=== PATIENT | female | born 1935 | race African-American/Black ===

== ENCOUNTER 2017-07-31 12:20 | Observation (INO) | payer MEDICARE, OTHER ==
[2017-07-31 14:37] LABS: Bilirubin Negative (Negative); Blood, Urine Negative (Negative); Glucose, Urine (Dipstick) Negative (Negative); Ketone, Urine Negative (Negative); Nitrite Negative (Negative); Protein, Urine (Dipstick) Negative (Neg-Trace); Urobilinogen 0.2 mg/dL (0.2-1.0)
[2017-07-31 14:39] LABS: #Eosinphils 0.1 thou/uL (0.0-0.7); #Lymphocytes 1.4 thou/uL (1.20-3.40); #Monocytes 0.7 thou/uL (0.11-0.59); #Neutrophils 4.8 thou/uL (1.40-6.50); %Basophils 0.6 % (0.0-1.0); %Eosinophils 1.5 % (0.0-10.0); %Lymphocytes 20.3 % (21.0-51.0); %Monocytes 9.6 % (0.0-10.0); Hematocrit 44.5 % (36.0-47.0); Mean Platelet Volume 7.2 fL (7.4-10.4); Red Blood Cell (RBC) Count 4.85 mill/uL (4.20-5.40); White Blood Cell (WBC) Count 7.1 thou/uL (4.8-10.8)
[2017-07-31 14:56] LABS: Lactic Acid - Sepsis 0.8 mmol/L (0.5-2.2)
[2017-07-31 15:02] LABS: ALT (SGPT) 14 U/L (8-55); AST (SGOT) 22 U/L (5-34); Alkaline Phosphatase 78 U/L (40-150); Anion Gap 10 mmol/L (10-20); BUN (Urea Nitrogen) 23 mg/dL (9.8-20.1); Bilirubin, Total 0.5 mg/dL (0.2-1.2); CK (CPK) 138 U/L (29-168); Calc. Creatinine Clearance 0 mL/min (70-130); Calcium 10.6 mg/dL (7.8-10.44); Carbon Dioxide 29 mmol/L (23-31); Chloride 104 mmol/L (98-107); Estimated GFR-MDRD 58; Lipase 7 U/L (8-78); Magnesium 2.1 mg/dL (1.6-2.6); Protein, Total 8.2 g/dL (6.0-8.3)
[2017-07-31 15:04] LABS: Troponin I Less than 0.010 ng/mL (< 0.028)
--- NOTE | 2017-07-31 17:11 | HP ---
DATE OF ADMISSION: 07/31/2017 CHIEF COMPLAINT: Weakness in the lower extremities below the knees, inability to stand up and walk a nd ambulate. HISTORY OF PRESENT ILLNESS: The patient is an 82-year-old -[place] female, pleasant lady who is presenting to the [facility] Emergency Room in [place] with 1 day of lower extremity weakn ess. She said that this has never happened before, usually she is able to ambulate, although she has history of osteoarthritis and she had both knees replaced. She is still able to ambulate pretty goo d. She denies any fever or chills. She denies any pain at this point. Her sensory system is functi oning well. There was really nothing recently which would cause her to feel that way. PAST MEDICAL HISTORY: Positive for: 1. Hyperlipidemia. 2. Hypertension. 3. Overactive bladder. 4. Depression. 5. Osteoarthritis. PAST SURGICAL HISTORY: Total knee replacement, both knees. FAMILY HISTORY: Both mother and father at old age in their 80s and 90s and she does not know th e cause of their . SOCIAL HISTORY: She denies any alcohol intake, cigarette smoking, or illicit drug. ALLERGIES: MORPHINE. HOME MEDICATIONS: Ibuprofen 400 mg daily, Ditropan 5 mg twice a day, statin; she does not know the n roly of it, she thinks it is pravastatin 40 mg at bedtime, amlodipine, unknown dose and unknown freque ncy and HCTZ 25 mg, unknown frequency. REVIEW OF SYSTEMS: 14 systems were reviewed and the only positive for the above-mentioned HPI findin gs plus she has some peripheral edema in the lower extremities which kind of comes and goes. PHYSICAL EXAMINATION: GENERAL: She is not in any distress during my visit. VITAL SIGNS: Her blood pressure is 127/89, pulse is 78, respiratory rate is 16. HEENT: Her head is atraumatic, normocephalic. Eyes are PERRLA. Conjunctivae pinkish. Oral mucosa is moist. NECK: Supple, no lymphadenopathy. Thyroid is not palpable. LUNGS: Clear. HEART: S1, S2 normal. No S3, no S4. ABDOMEN: There is a systolic murmur at the left costal margin with the sternum. LUNGS: Clear. ABDOMEN: Soft, obese, nontender. EXTREMITIES: 2+ peripheral edema. NEUROLOGIC: She is alert and oriented x4. There is no any sensory deficits. There is probably mild weakness in her legs below the knees. Deep tendon reflexes on knees very diminished, probably this is related to the previous TKRs bilaterally. Babinski sign is negative. NEUROLOGICAL: Not showing any focal deficits. SKIN: No rash or erythema. LABORATORY AND X-RAY FINDINGS: Showed white count of 7.1, hemoglobin 14.5, hematocrit 44.5, and plat elet count is 222. Electrolytes within normal limits. BUN of 23, creatinine 1.09, calcium 10.6, nish bulin 4.0, lipase 7. The rest of chemistry within normal limits. Urinalysis within normal limits. EKG showed normal sinus rhythm with ventricular rate of 82, with some findings consistent with left a nterior fascicular block. ASSESSMENT AND PLAN: 1. Acute onset of lower extremity weakness which is somewhat pronounced below the knee area. I thin k this is just caused by deconditioning and some dehydration. Her BUN is elevated. Plan to give her some IV fluids and get physical therapy to evaluate her and treat. 2. Dehydration. The patient is on HCTZ which is affecting her volume status most likely. 3. Hyperlipidemia. 4. History of hypertension. 5. Anxiety. 6. Overactive bladder and urinary incontinence. PLAN: Admission for observation. Condition is fair. Activity: Bed rest and bathroom privileges wi th assistance and up to the chair, possible with some assistance. IV normal saline at 100 mL per jimenez r. PT to evaluate and treat. Continue her home meds. PUD prophylaxis and DVT prophylaxis with SCDs and heparin. Surrogate decision maker is her sister, Maritza and she is FULL CODE.
[2017-07-31 17:34] VITALS: BMI 31.6
[2017-07-31] MEDS: Sodium Chloride 0.9% 1,000 ML IV SCH (18:12)
[2017-08-01] MEDS: Sodium Chloride 0.9% 1,000 ML IV SCH ×2 (04:44→14:10)
[2017-08-01] MEDS: Enoxaparin Sodium 40 MG/0.4 ML SYRINGE SC SCH (07:48)
--- NOTE | 2017-08-01 09:40 | PRG ---
DATE OF SERVICE: 08/01/2017 SUBJECTIVE: The patient is seen and examined at the bedside. She is doing better. This morning, sh e did some physical therapy. This morning, she was able to walk several steps, so her general weakne ss in her lower extremities is improving gradually. OBJECTIVE: VITAL SIGNS: Blood pressure is 133/83, pulse is 56, temperature is 97.4, respiratory rate is 16, and O2 saturation is 98% on room air. HEENT: Atraumatic, normocephalic. Eyes PERRLA. Conjunctivae pinkish. Oral mucosa is moist. NECK: Supple, no lymphadenopathy. LUNGS: Clear. HEART: S1, S2 normal, no S3, no S4, no murmur. ABDOMEN: Soft, nontender, nondistended. EXTREMITIES: No clubbing, cyanosis or edema. NEUROLOGIC: She is alert and oriented x4. There is no any motor focal deficits. She has some weakn ess in the lower extremities, mostly in the distal part. LABORATORY DATA: None. IMPRESSION: 1. Acute onset of lower extremity weakness, which is most likely deconditioning and dehydration. Th e patient was able to get up and do some physical therapy this morning. She took several steps and s he seems to be improving. 2. Dehydration, most likely secondary to her diuretic. Her intravenous fluids will be stopped. She seems to be rehydrated. 3. Hyperlipidemia. 4. History of hypertension. 5. Anxiety. 6. Overactive bladder and urinary incontinence. PLAN: To continue her PT, stop her IV fluids, continue her home meds and continue DVT prophylaxis wi th SCDs and heparin and discharge home most likely tomorrow if she does well with physical therapy.
[2017-08-01] MEDS ORDERED: Acetaminophen 500 MG TAB PO PRN (14:30)
[2017-08-01] MEDS ORDERED: Acetaminophen 325 MG TAB PO PRN (14:30)
[2017-08-01] MEDS ORDERED: traMADol HCl 50 MG TAB PO PRN ×2 (14:30)
[2017-08-01] MEDS ORDERED: Mag-Al 1200 mg/1200 mg/30 ML UDCUP PO PRN (14:30)
[2017-08-01] MEDS ORDERED: Ondansetron ODT 4 MG TAB PO PRN (14:30)
[2017-08-01] MEDS: Oxybutynin 5 MG TAB PO SCH ×2 (15:22→21:09)
[2017-08-01] MEDS ORDERED: Atorvastatin Calcium 20 MG TAB PO SCH (21:00)
[2017-08-02 05:47] LABS: Anion Gap 10 mmol/L (10-20); BUN (Urea Nitrogen) 17 mg/dL (9.8-20.1); Calc. Creatinine Clearance 72 mL/min (70-130); Calcium 9.4 mg/dL (7.8-10.44); Carbon Dioxide 25 mmol/L (23-31); Chloride 106 mmol/L (98-107); Estimated GFR-MDRD 80
[2017-08-02 08:03] VITALS: BP 127/82; TEMP 98
[2017-08-02] MEDS: Cyclobenzaprine 10 MG TAB PO PRN ×2 (08:38→15:28)
[2017-08-02] MEDS: Oxybutynin 5 MG TAB PO SCH ×2 (08:39→15:28)
[2017-08-02] MEDS: Enoxaparin Sodium 40 MG/0.4 ML SYRINGE SC SCH (08:39)
--- NOTE | 2017-08-02 18:10 | DIS ---
DATE OF ADMISSION: 07/31/2017 DATE OF DISCHARGE: 08/02/2017 DISCHARGE DIAGNOSES: 1. Generalized weakness secondary to deconditioning. 2. Dehydration, mild, resolved. 3. Hyperlipidemia, stable. 4. Hypertension, stable. 5. Anxiety. 6. Urinary incontinence, stable. CONSULTATIONS: None. PERTINENT LABORATORY AND X-RAY FINDINGS: Creatinine ranged between 0.83-1.09 with estimated GFR rang ed between 58-80. Magnesium 2.1. LFTs within normal limits. Troponin I negative x1. CBC within no rmal limits. HOSPITAL COURSE: The patient was observed on the medical floor after initially presenting with gener alized weakness and difficulty with ambulation. The patient underwent general evaluation including p hysical therapy evaluation with recommendations for ongoing physical therapy as an outpatient. The p atient has overall general weakness due to advanced age, history of prior knee surgery, and deconditi oning. Metabolic workup was essentially unrevealing and patient remained clinically stable throughou t the hospital course. The patient is ready for discharge on 08/02/2017. DISCHARGE MEDICATIONS: 1. Tylenol 1000 mg p.o. q.6 hours p.r.n. pain. 2. Benazepril 20 mg 1 tablet p.o. daily. 3. Flexeril 5 mg p.o. t.i.d. p.r.n. 4. Oxybutynin 5 mg p.o. t.i.d. 5. Zocor 40 mg p.o. at bedtime. 6. Tramadol 50 mg 1-2 tablets p.o. q.6 hours p.r.n. pain. FOLLOWUP: The patient may follow up with her primary care provider, Dr. Luis A Clark within 7 days of discharge. CONDITION ON DISCHARGE: Stable. ACTIVITY: Ad vasu, rolling walker with ambulation. SPECIAL INSTRUCTIONS: Home health with physical therapy. DIET: Heart healthy. CODE STATUS: FULL. DISPOSITION: Home with home health services on 08/02/2017.
--- NOTE | 2017-08-07 13:36 | EKG ---
Test Reason : WEAKNESS Blood Pressure : / mmHG Vent. Rate : 082 BPM Atrial Rate : 082 BPM P-R Int : 192 ms QRS Dur : 088 ms QT Int : 382 ms P-R-T Axes : 021 -54 -05 degrees QTc Int : 446 ms Normal sinus rhythm Possible Left atrial enlargement Left anterior fascicular block Septal infarct , age undetermined Abnormal ECG Confirmed by MICHELLE MATTHEWS, KAHLIL Mota ([id number]), fashion editor TRESA MACHUCA ([id number]) on 08/07/2017 1:35:58 PM Referred By: MICHELLE Confirmed By:KAHLIL MARTINEZ MD
== END 2017-08-02 17:03 | disposition home health service (06) ==
LOC: ERS 12:20 → T4-B 17:15
PROVIDERS: ADMIT Internal Medicine; ATTEND Internal Medicine
DX: R53.81 Other malaise (principal); R53.1 Weakness; E86.0 Dehydration; E78.5 Hyperlipidemia, unspecified; I10 Essential (primary) hypertension; F41.9 Anxiety disorder, unspecified; R32 Unspecified urinary incontinence; M19.90 Unspecified osteoarthritis, unspecified site; F32.9 Major depressive disorder, single episode, unspecified; Z88.5 Allergy status to narcotic agent; Z79.899 Other long term (current) drug therapy; Z96.653 Presence of artificial knee joint, bilateral
CPT/HCPCS: 51701; 80048; 80053; 81003; 82550; 82553; 83605; 83690; 83735; 84484; 85025; 93005; 96360; 96361 ×3; 96372 ×2; 97110; 97116 ×2; 99285; G0378; G8978; G8979; 36415; A4353; J1650

== ENCOUNTER 2018-05-27 20:30 | Outpatient (CLI) | payer MEDICARE | END 2018-05-27 20:31 | disposition home or self-care (01) | LOC: SLEEPLAB 20:30 | PROVIDERS: ATTEND Family Medicine | DX: G47.33 Obstructive sleep apnea (adult) (pediatric) (principal); R53.83 Other fatigue; R06.83 Snoring; F32.9 Major depressive disorder, single episode, unspecified; F41.9 Anxiety disorder, unspecified; I10 Essential (primary) hypertension; E66.9 Obesity, unspecified; Z68.32 Body mass index [BMI] 32.0-32.9, adult | CPT/HCPCS: 95811 ==

== ENCOUNTER 2018-10-28 12:51 | Outpatient (CLI) | payer MEDICARE | END 2018-10-28 12:52 | disposition home or self-care (01) | LOC: ULT 12:51 | PROVIDERS: ATTEND Family Medicine | DX: R60.0 Localized edema (principal); I08.1 Rheumatic disorders of both mitral and tricuspid valves | CPT/HCPCS: 93306 ==

== ENCOUNTER 2019-05-30 20:36 | Inpatient (IN) | payer MEDICARE ==
[2019-05-30 21:37] LABS: #Eosinphils 0.2 thou/uL (0.0-0.7); #Lymphocytes 1.3 thou/uL (1.20-3.40); #Monocytes 0.6 thou/uL (0.11-0.59); #Neutrophils 5.5 thou/uL (1.40-6.50); %Basophils 0.5 % (0.0-1.0); %Eosinophils 2.2 % (0.0-10.0); %Lymphocytes 17.4 % (21.0-51.0); %Monocytes 8.1 % (0.0-10.0); %Neutrophils 71.7 % (42.0-75.0); Hemoglobin 13.7 g/dL (12.0-16.0); Mean Corpuscular HGB CONC 32.8 g/dL (32.0-36.0); Mean Corpuscular Hemoglobin 29.1 pg (27.0-31.0); Mean Corpuscular Volume 88.6 fL (78.0-98.0); Mean Platelet Volume 8.1 fL (7.4-10.4); Platelet Count 171 thou/uL (130-400); RBC Distribution Width 12.4 % (11.5-14.5); Red Blood Cell (RBC) Count 4.71 mill/uL (4.20-5.40); White Blood Cell (WBC) Count 7.6 thou/uL (4.8-10.8)
--- NOTE | 2019-05-30 22:01 | RAD ---
RADIOGRAPH CHEST 1 VIEW: DATE: 05/30/2019 HISTORY: 84-year-old female with generalized weakness. FINDINGS: There are no airspace densities, pulmonary edema, pneumothorax, or cardiomegaly. The lateral costophr enic angles are sharp. IMPRESSION: No acute cardiopulmonary findings.
[2019-05-30 22:02] LABS: ALT (SGPT) 12 U/L (8-55); AST (SGOT) 22 U/L (5-34); Albumin 3.9 g/dL (3.4-4.8); Alkaline Phosphatase 60 U/L (40-110); Anion Gap 9 mmol/L (10-20); BUN (Urea Nitrogen) 23 mg/dL (9.8-20.1); Bilirubin, Total 0.4 mg/dL (0.2-1.2); Calc. Creatinine Clearance 0 mL/min (70-130); Carbon Dioxide 28 mmol/L (23-31); Chloride 108 mmol/L (98-107); Estimated GFR-MDRD 49; Globulin 3.7 g/dL (2.4-3.5); Glucose 94 mg/dL (83-110); Magnesium 2.2 mg/dL (1.6-2.6); Protein, Total 7.6 g/dL (6.0-8.3); Sodium 141 mmol/L (136-145)
[2019-05-30 23:11] LABS: Bacteria/HPF 3+ HPF (None Seen); Bilirubin Negative (Negative); Blood, Urine Negative (Negative); Clarity Clear (Clear); Glucose, Urine (Dipstick) Normal (Negative); Leukocyte 250 Leu/uL (Negative); Nitrite Negative (Negative); Protein, Urine (Dipstick) Negative (Neg-Trace); RBC/HPF 0-3 HPF (0-3); Squamous Epithelial None Seen HPF (0-3); Urobilinogen Normal mg/dL (Less than 2); WBC/HPF 21-50 HPF (0-3)
[2019-05-30 23:12] LABS: Yeast-Budding None Seen HPF (None Seen)
[2019-05-30] MEDS ORDERED: cefTRIAXone\\ROCEPHIN 2 GM VIAL ONE (23:53)
[2019-05-31] MEDS ORDERED: Acetaminophen 325 MG TAB PO PRN (01:10)
[2019-05-31] MEDS ORDERED: Sodium Chloride 0.9% 1,000 ML IV SCH (01:30)
[2019-05-31 02:17] LABS: Troponin I Less than 0.010 ng/mL (< 0.028)
[2019-05-31 02:33] LABS: Anion Gap 13 mmol/L (10-20); BUN (Urea Nitrogen) 21 mg/dL (9.8-20.1); Calc. Creatinine Clearance 0 mL/min (70-130); Calcium 9.4 mg/dL (7.8-10.44); Carbon Dioxide 24 mmol/L (23-31); Chloride 109 mmol/L (98-107); Estimated GFR-MDRD 64; Glucose 91 mg/dL (83-110); Potassium 3.8 mmol/L (3.5-5.1); Sodium 142 mmol/L (136-145)
--- NOTE | 2019-05-31 02:39 | HP ---
CHIEF COMPLAINT: Possible fall. HISTORY OF PRESENT ILLNESS: This patient is an 84-year-old female, who was in a long term. The patient seems to be very well, cognitively intact. She says she simply slid out of her recliner chair today and she was feeling completely fine otherwise. She had no lightheadedness, shortness of breath, chest pain or palpitations. Nonetheless, this was reported to the long term staff and the patient was brought to the emergency department. She does report that she has been feeling some mild generalized weakness over the last 2 to 3 days and that she is getting up and around with her cane. She occasionally is having to grab onto things to hold herself upright. Otherwise, the patient states that for the last 3 to 4 weeks, she has essentially been sitting around, eating junk food and feeling depressed. This started on her 84 birthday, which was on May [birth year]. She says she has been thinking about family members who have and her generally poor functional status. The patient likes to travel and has been limited in her ability to do those things, so she is feeling a bit depressed. REVIEW OF SYSTEMS: She has had some lower extremity edema. Says she recently saw Dr. Clark and he put her on 10 mg of Lasix. She also is bothered by her overactive bladder. PAST MEDICAL HISTORY: Notable for hyperlipidemia, hypertension, overactive bladder, depression, and osteoarthritis. PAST SURGICAL HISTORY: Bilateral total knee replacements. FAMILY HISTORY: Both of her parents lived to be relatively old. She does not know their cause of , but they in their 80s and 90s. SOCIAL HISTORY: The patient is a nonsmoker, nondrinker, and nondrug user. She lives in the long term. She is a full code and her niece Pool Magdaleno would be her surrogate decision maker should that become necessary. ALLERGIES: MORPHINE. CURRENT MEDICATIONS: Unknown. There were no records of this sent from the nursing facility. We have been attempting to try to get those here in the emergency department thus far with no success. PHYSICAL EXAMINATION: GENERAL APPEARANCE: A very pleasant age-appropriate female, who enjoys conversation. She is awake and alert. Cognitively intact. HEENT: PERRL. She has some arcus senilis. No OP lesions. NECK: Supple and symmetric without lymphadenopathy, JVD, or bruits. HEART: Regular rate and rhythm; however, profoundly bradycardic. Monitor reveals a rate of around 40. LUNGS: Clear to auscultation bilaterally with good chest wall expansion and air exchange. ABDOMEN: Soft, nontender, and nondistended with positive bowel sounds. EXTREMITIES: 1+ pretibial pitting edema bilaterally. NEUROLOGIC: The patient moves all extremities spontaneously. She is cognitively intact, has normal speech. PSYCHIATRIC: Normal affect and behavior. LABORATORY DATA: White count 7.6, hemoglobin 13.7, platelets 171. Sodium 141, potassium 4.0, chloride 108, CO2 28, BUN 23, creatinine 1.26, GFR 49. LFTs normal. Magnesium 2.2. Troponin 0.11. BNP 31.4, albumin 3.9. Urinalysis shows 21 to 50 white cells, 3+ bacteria, positive leukocyte esterase and negative nitrites. Chest x-ray is negative. EKG shows sinus bradycardia with left bundle branch block. IMPRESSION AND PLAN: 1. Severe bradycardia. It sounds like this may be symptomatic given her last few days of increased weakness and the fact that she slid out of her chair today. It is unclear that she was otherwise symptomatic with that. It is also unclear at this point whether the patient is on any chronotropic medications. We are working to get her medication list from the long term. There is nothing in the computer that is helpful and her previous admission was in 2017. At that time, she was not on any chronotropes. We will continue to monitor overnight. Check serial troponins and check a TSH in the morning. We will consult Cardiology. I am hopeful that she may be on beta coleen, something that can be held and metabolize the way. Otherwise, she may be looking at pacemaker placement. 2. Hypertension. Again, we will resume her medications once they are actually known. 3. Overactive bladder. The patient was on Ditropan up to t.i.d. previously. We will resume medications once they are known. 4. Some depression. The patient did recently lose her last sibling and she understands that she has had some normal bereavement. She intends to become more active and be more helpful to others at her long term and try to go fishing again. 5. Possible urinary tract infection. She received Rocephin in the emergency department. We will continue with that. 6. Acute renal injury. The patient's GFR typically runs in the 70s to 80s. She is now down to 49. She has recently been put on some diuretics for the peripheral edema, may be that she has some intravascular depletion. She did receive some fluids at 500 mL in the emergency department. We will continue to gently hydrate and recheck her values in the morning. Job ID: [id number]
[2019-05-31 03:17] VITALS: BMI 36.9
[2019-05-31 07:25] LABS: Troponin I 0.011 ng/mL (< 0.028)
[2019-05-31] MEDS ORDERED: FLU VACC TS2019-20(65YR UP)/PF 180 MCG/0.5 ML SYRINGE IM ONE (09:00)
--- NOTE | 2019-05-31 13:04 | PDOC.HOSPP ---
- Subjective Encounter Date: 05/31/19 Encounter Time: 10:15 Subjective: no chest pain or palp she fell of her recliner last evening a bit depressed as she lost her sister 8-9 months back to cancer (pt is not and has no children) - Objective Vital Signs & Weight: Vital Signs (12 hours) Temp Pulse Resp BP Pulse Ox 05/31/19 12:00 97.7 F 49 L 20 149/64 H 94 L 05/31/19 08:00 98.5 F 46 L 18 146/65 H 95 05/31/19 02:04 97.9 F 44 L 19 119/67 95 Weight Weight 229 lb 1.6 oz I&O: 05/30/19 05/31/19 06/01/19 06:59 06:59 06:59 Intake Total 449 Output Total 235 Balance 214 Result Diagrams: 05/30/19 21:20 05/31/19 01:36 Hospitalist ROS - Medication Medications: Active Medications Generic Name Dose Route Start Last Admin Trade Name Freq PRN Reason Stop Dose Admin Sodium Chloride 1,000 mls @ 50 mls/hr 05/31/19 01:30 05/31/19 03:03 Normal Saline 0.9% IV 1,000 mls .Q20H SAMSON Administration - Exam General Appearance: awake alert Eye: PERRL, anicteric sclera ENT: normocephalic atraumatic, no oropharyngeal lesions, moist mucosa Neck: supple, no JVD Heart: RRR, no murmur Respiratory: no wheezes, no rales Gastrointestinal: soft, non-tender, non-distended, normal bowel sounds Extremities: no cyanosis, no edema Neurological: cranial nerve grossly intact, no focal deficits Psychiatric: normal affect, A&O x 3 Hosp A/P (1) Bradycardia Code(s): R00.1 - BRADYCARDIA, UNSPECIFIED Status: Acute (2) UTI (urinary tract infection) Status: Acute Qualifiers: Urinary tract infection type: acute cystitis Hematuria presence: without hematuria Qualified Code(s): N30.00 - Acute cystitis without hematuria (3) Dyslipidemia Code(s): E78.5 - HYPERLIPIDEMIA, UNSPECIFIED Status: Chronic (4) HTN (hypertension) Code(s): I10 - ESSENTIAL (PRIMARY) HYPERTENSION Status: Chronic Qualifiers: (5) Obesity (BMI 30-39.9) Code(s): E66.9 - OBESITY, UNSPECIFIED Status: Chronic - Plan her heart rate runs around 40's and had dipped down to 35 early this am per staff likely has underlying sss, await cardio opinion, she ate her lunch she needs to f/u with for left shoulder severe arthritis (frozen?) add lisinopril and home dose lasix for htn, pravachol on ceftriaxone for uti spiritual care consultation will start her on welbutrin for depression, tsh levels in am mobilize and amb in hallway as tolerated
[2019-05-31] MEDS: Oxybutynin 5 MG TAB PO SCH ×2 (14:23→21:51)
--- NOTE | 2019-05-31 21:11 | CON ---
DATE OF CONSULTATION: 05/31/2019 REASON FOR CONSULTATION: Bradycardia. HISTORY OF PRESENT ILLNESS: Ms. Severino is a delightful 84-year-old woman. She was brought to the hospital with weakness and fatigue. She was found to have a urinary tract infection (cystitis). She has also noted that she had severe bradycardia as will be outlined below. The patient has not had syncope. She has occasional lightheadedness when she gets up quickly, but no other dizziness or lightheadedness. She states she otherwise gets around pretty well. She said [place] The patient lives at a longterm, so history about going fishing I am not certain about, but that is what she tells me. She recently had her 84rd birthday. She said she has some problems with depression, but otherwise is doing well. She has chronic edema. MEDICATIONS AT HOME: 1. Ditropan. 2. Flexeril. 3. Tramadol. 4. Furosemide. 5. Pravastatin. 6. Alprazolam. ALLERGIES: TO MORPHINE. REVIEW OF SYSTEMS: CONSTITUTIONAL: Some tendency toward depression, but she said that is doing okay now. VISION: No changes. HEARING: No changes. PULMONARY: No cough or wheezing. GASTROINTESTINAL: No nausea, vomiting, or diarrhea. SKIN: No rashes. NEUROLOGIC: No unilateral weakness or numbness. PSYCHIATRIC: No unusual depression or anxiety. She said she does as mentioned suffer from depression off and on, but said that she is really doing well with that now. PHYSICAL EXAMINATION: GENERAL: This is a very delightful elderly female. She is overweight. VITAL SIGNS: Height 5 feet 6 inches tall, weight 229 pounds, BMI 37. Blood pressure 140/60, pulse 44 and regular. HEENT: Eyes; sclerae nonicteric. Mouth; mucous membranes moist. NECK: Neck veins are normal. LUNGS: Clear anteriorly and laterally. CARDIAC: I do not hear murmur, rub, or gallop. ABDOMEN: Obese, nontender. No hepatosplenomegaly. EXTREMITIES: Warm and dry. No clubbing or cyanosis. There is 1+ edema. PSYCHIATRIC: Mood and affect are normal. SKIN: Warm and dry. LABORATORY DATA: WBC 7.6. Urine did show 3+ bacteria with 21 to 50 white blood cells. Creatinine is 1. EKG showed sinus bradycardia, heart rate is low as the high 30s during the day 1 and the heart rate is approximately 35 beats per minute this morning at 10. The EKG, marked sinus bradycardia, left anterior fascicular block, ID interval 0.20. ASSESSMENT: 1. Bradycardia appears to be symptomatic with fatigue. 2. Cystitis being treated. PLAN: Recommend pacemaker insertion. Discussed bleeding, infection, air around the lung. We will await at least still tomorrow to make sure the urinary tract infection is cleared. I discussed this in great detail to the patient. The patient states that she is not ready to pursue that. Discussed that she could have progressive weakness versus if she has pauses, lightheadedness, or even falling. The patient understands, but states she just has to think about it more and is not ready for pacemaker at the present time. We discussed the procedure in detail. Dr. Alcantara will be the physician in planning if the patient decides to proceed. Job ID: [id number]
[2019-05-31] MEDS: Lisinopril 5 MG TAB PO SCH (21:51)
[2019-05-31] MEDS: Pravastatin Sodium 40 MG TAB PO SCH (21:51)
[2019-05-31] MEDS: buPROPion 75 MG TAB PO SCH (21:51)
[2019-05-31] MEDS ORDERED: cefTRIAXone\\ROCEPHIN 1 GM in Sodium Chloride 0.9% 100 ML IVPB SCH (23:59)
[2019-06-01] MEDS: Sulfameth/Trimethoprim DS 800-160mg TAB PO SCH ×2 (08:26→21:26)
[2019-06-01] MEDS: Lisinopril 5 MG TAB PO SCH ×2 (08:26→21:26)
[2019-06-01] MEDS: Furosemide 20 MG TAB PO SCH (08:26)
[2019-06-01] MEDS: Oxybutynin 5 MG TAB PO SCH ×3 (08:26→21:27)
[2019-06-01] MEDS: buPROPion 75 MG TAB PO SCH ×2 (08:38→21:26)
--- NOTE | 2019-06-01 09:36 | PRG ---
DATE OF SERVICE: 06/01/2019 SUBJECTIVE: Ms. Severino is feeling better today. OBJECTIVE: VITAL SIGNS: Her blood pressure is 165/79, pulse is 44 and regular. LUNGS: Clear. CARDIAC: Normal S1, normal S2. ABDOMEN: Soft and nontender. ASSESSMENT: Bradycardia associated with fatigue. Heart rate is in the 30s at times and otherwise low 40s. PLAN: The patient wished to proceed with pacemaker tomorrow. I have discussed this with her yesterday. We will proceed tomorrow. Job ID: [id number]
[2019-06-01] MEDS ORDERED: Lorazepam 1 MG TAB PO SCH (17:00)
--- NOTE | 2019-06-01 17:57 | PDOC.HOSPP ---
- Subjective Encounter Date: 06/01/19 Encounter Time: 11:20 Subjective: no chest pain or palp - Objective Vital Signs & Weight: Vital Signs (12 hours) Temp Pulse Resp BP Pulse Ox 06/01/19 15:29 97.9 F 64 17 147/71 H 94 L 06/01/19 11:19 98.2 F 72 17 160/74 H 97 06/01/19 07:27 98.3 F 45 L 17 165/79 H 92 L Weight Weight 225 lb 12.8 oz I&O: 05/31/19 06/01/19 06/02/19 06:59 06:59 06:59 Intake Total 449 1080 Output Total 235 1900 Balance 214 -820 Result Diagrams: 05/30/19 21:20 05/31/19 01:36 Hospitalist ROS - Medication Medications: Active Medications Generic Name Dose Route Start Last Admin Trade Name Freq PRN Reason Stop Dose Admin Acetaminophen 650 mg 05/31/19 01:10 05/31/19 16:48 Tylenol PO 650 mg Q4H PRN Administration Headache/Fever/Mild Pain (1-3) Bupropion HCl 75 mg 05/31/19 21:00 06/01/19 08:38 Wellbutrin PO 75 mg BID SAMSON Administration Furosemide 20 mg 06/01/19 09:00 06/01/19 08:26 Lasix PO 20 mg DAILY SAMSON Administration Lisinopril 5 mg 05/31/19 21:00 06/01/19 08:26 Zestril PO 5 mg BID SAMSON Administration Lorazepam 1 mg 06/01/19 17:00 06/01/19 17:11 Ativan PO 06/01/19 19:00 1 mg NOW SAMSON Administration Oxybutynin Chloride 5 mg 05/31/19 15:00 06/01/19 15:28 Ditropan PO 5 mg TID SAMSON Administration Pravastatin Sodium 40 mg 05/31/19 21:00 05/31/19 21:51 Pravachol PO 40 mg QPM SAMSON Administration Trimethoprim/Sulfamethoxazole 1 tab 06/01/19 09:00 06/01/19 08:26 Bactrim Ds PO 1 tab BID SAMSON Administration - Exam General Appearance: NAD, awake alert Eye: PERRL, anicteric sclera ENT: no oropharyngeal lesions, moist mucosa Neck: supple, no JVD Heart: no murmur Heart - other findings: bradycardia+ Respiratory: no wheezes, no rales Gastrointestinal: soft, non-tender, non-distended, normal bowel sounds Extremities: no cyanosis, no edema Neurological: cranial nerve grossly intact, no focal deficits Hosp A/P (1) Bradycardia Code(s): R00.1 - BRADYCARDIA, UNSPECIFIED Status: Acute (2) UTI (urinary tract infection) Status: Acute Qualifiers: Urinary tract infection type: acute cystitis Hematuria presence: without hematuria Qualified Code(s): N30.00 - Acute cystitis without hematuria (3) Dyslipidemia Code(s): E78.5 - HYPERLIPIDEMIA, UNSPECIFIED Status: Chronic (4) HTN (hypertension) Code(s): I10 - ESSENTIAL (PRIMARY) HYPERTENSION Status: Chronic Qualifiers: (5) Obesity (BMI 30-39.9) Code(s): E66.9 - OBESITY, UNSPECIFIED Status: Chronic - Plan likely has underlying sss, for pcm in am, patient agrees to proceed. she needs to f/u with for left shoulder severe arthritis (frozen?) continue lisinopril, home dose lasix for htn, pravachol on bactrim ds for uti spiritual care consultation on welbutrin for depression mobilize and amb in hallway as tolerated
[2019-06-01] MEDS: Pravastatin Sodium 40 MG TAB PO SCH (21:26)
[2019-06-02] MEDS: Lisinopril 5 MG TAB PO SCH ×2 (06:46→20:54)
[2019-06-02] MEDS ORDERED: Lidocaine 1% (PF) 30 ML VIAL ONE (07:10)
[2019-06-02] MEDS ORDERED: CEFAZOLIN 1 GM VIAL ONE (07:10)
[2019-06-02] MEDS ORDERED: Gentamicin 80 MG/2 ML VIAL ONE (07:11)
[2019-06-02 07:55] LABS: #Eosinphils 0.2 thou/uL (0.0-0.7); #Lymphocytes 1.5 thou/uL (1.20-3.40); #Monocytes 0.7 thou/uL (0.11-0.59); #Neutrophils 8.1 thou/uL (1.40-6.50); %Basophils 0.3 % (0.0-1.0); %Eosinophils 1.8 % (0.0-10.0); %Monocytes 6.5 % (0.0-10.0); %Neutrophils 77.3 % (42.0-75.0); Mean Corpuscular HGB CONC 32.2 g/dL (32.0-36.0); Mean Corpuscular Hemoglobin 28.2 pg (27.0-31.0); Mean Corpuscular Volume 87.8 fL (78.0-98.0); Mean Platelet Volume 8.1 fL (7.4-10.4); Platelet Count 184 thou/uL (130-400); RBC Distribution Width 12.7 % (11.5-14.5); White Blood Cell (WBC) Count 10.5 thou/uL (4.8-10.8)
[2019-06-02 08:11] LABS: PTT 31.5 SEC (22.9-36.1); Prothrombin Time 13.5 SEC (12.0-14.7)
[2019-06-02 08:17] LABS: Anion Gap 11 mmol/L (10-20); BUN (Urea Nitrogen) 15 mg/dL (9.8-20.1); Calc. Creatinine Clearance 64 mL/min (70-130); Calcium 9.7 mg/dL (7.8-10.44); Carbon Dioxide 26 mmol/L (23-31); Chloride 105 mmol/L (98-107); Estimated GFR-MDRD 59; Glucose 93 mg/dL (83-110); Potassium 3.5 mmol/L (3.5-5.1); Sodium 138 mmol/L (136-145)
[2019-06-02] MEDS ORDERED: Midazolam HCl 2 mg/2 ml Vial ONE (08:41)
[2019-06-02] MEDS: buPROPion 75 MG TAB PO SCH ×2 (10:57→20:55)
[2019-06-02] MEDS: Sulfameth/Trimethoprim DS 800-160mg TAB PO SCH ×2 (10:57→20:54)
[2019-06-02] MEDS: Furosemide 20 MG TAB PO SCH (10:57)
[2019-06-02] MEDS: traMADol HCl 50 MG TAB PO PRN (10:58)
[2019-06-02] MEDS: Oxybutynin 5 MG TAB PO SCH ×3 (10:58→20:54)
--- NOTE | 2019-06-02 12:40 | PDOC.HOSPP ---
- Subjective Encounter Date: 06/02/19 Encounter Time: 09:30 Subjective: awake, just had her pcm placed no sob - Objective Vital Signs & Weight: Vital Signs (12 hours) Temp Pulse Resp BP Pulse Ox 06/02/19 11:50 98 F 70 18 150/69 H 100 06/02/19 10:52 80 18 154/77 H 99 06/02/19 07:19 98 F 59 L 18 146/70 H 97 06/02/19 06:46 60 06/02/19 03:54 98.0 F 60 18 135/70 96 Weight Weight 225 lb 12.8 oz I&O: 06/01/19 06/02/19 06/03/19 06:59 06:59 06:59 Intake Total 1080 450 Output Total 1900 900 Balance -820 -450 Result Diagrams: 06/02/19 07:36 06/02/19 07:36 Hospitalist ROS - Medication Medications: Active Medications Generic Name Dose Route Start Last Admin Trade Name Freq PRN Reason Stop Dose Admin Acetaminophen 650 mg 05/31/19 01:10 05/31/19 16:48 Tylenol PO 650 mg Q4H PRN Administration Headache/Fever/Mild Pain (1-3) Bupropion HCl 75 mg 05/31/19 21:00 06/02/19 10:57 Wellbutrin PO 75 mg BID SAMSON Administration Furosemide 20 mg 06/01/19 09:00 06/02/19 10:57 Lasix PO 20 mg DAILY SAMSON Administration Lisinopril 5 mg 05/31/19 21:00 06/02/19 06:46 Zestril PO 5 mg BID SAMSON Administration Oxybutynin Chloride 5 mg 05/31/19 15:00 06/02/19 10:58 Ditropan PO 5 mg TID SAMSON Administration Pravastatin Sodium 40 mg 05/31/19 21:00 06/01/19 21:26 Pravachol PO 40 mg QPM SAMSON Administration Sodium Chloride 10 ml 06/01/19 21:00 06/02/19 10:58 Flush - Normal Saline IVF 10 ml Q12HR SAMSON Administration Tramadol HCl 50 mg 05/31/19 12:56 06/02/19 10:58 Ultram PO 50 mg Q6H PRN Administration Moderate Pain (4-6) Trimethoprim/Sulfamethoxazole 1 tab 06/01/19 09:00 06/02/19 10:57 Bactrim Ds PO 1 tab BID SAMSON Administration - Exam General Appearance: awake alert Eye: PERRL, anicteric sclera ENT: normocephalic atraumatic, no oropharyngeal lesions, moist mucosa Neck: supple, no JVD Heart: no murmur, no gallops Respiratory: no wheezes, no rales Gastrointestinal: soft, non-tender, non-distended, normal bowel sounds Extremities: no cyanosis, no edema Neurological: cranial nerve grossly intact, no focal deficits Hosp A/P (1) Bradycardia Code(s): R00.1 - BRADYCARDIA, UNSPECIFIED Status: Acute (2) UTI (urinary tract infection) Status: Acute Qualifiers: Urinary tract infection type: acute cystitis Hematuria presence: without hematuria Qualified Code(s): N30.00 - Acute cystitis without hematuria (3) Dyslipidemia Code(s): E78.5 - HYPERLIPIDEMIA, UNSPECIFIED Status: Chronic (4) HTN (hypertension) Code(s): I10 - ESSENTIAL (PRIMARY) HYPERTENSION Status: Chronic Qualifiers: (5) Obesity (BMI 30-39.9) Code(s): E66.9 - OBESITY, UNSPECIFIED Status: Chronic - Plan s/p pcm dual chamber for sss. she needs to f/u with for left shoulder severe arthritis (frozen?) continue lisinopril, home dose lasix for htn, pravachol on bactrim ds for uti spiritual care consultation on welbutrin for depression, needs slow titration as outpt mobilize and amb in hallway as tolerated ?skilled care if she qualifies
[2019-06-02] MEDS ORDERED: Ketorolac Tromethamine 30 MG/ML VIAL IVP SCH (15:30)
--- NOTE | 2019-06-02 15:47 | RAD ---
EXAM: CHEST ONE VIEW HISTORY: Post cardiac device placement. COMPARISON: 05/30/2019 FINDINGS: There has been interval placement of a dual-lead left subclavian cardiac pacemaking device. No pneumo thorax is seen. The cardiac silhouette is magnified by projection. The pulmonary vasculature is within normal limits. The lungs are clear. Osteoarthritis involves the left glenohumeral joint with p ostsurgical changes involving the right shoulder. Minimal degenerative changes are seen in the spine. No other interval change. IMPRESSION: Interval placement of a dual-lead left subclavian cardiac pacemaking device without evidence of a pne umothorax or pleural effusion.
--- NOTE | 2019-06-02 16:05 | CCL ---
DATE OF PROCEDURE: 06/01/19 INDICATION FOR PROCEDURE: This is an 83-year-old female with sick sinus syndrome with symptomatic bradycardia. She was advised to undergo dual chamber pacemaker insertion. This was performed today without difficulties or complic ations. She was taken to the [facility] where she was prepped and draped in the sterile fashion . Using a left subclavian approach, the pacemaker was easily inserted. Some difficulties were in tena gating the vein but we were able to engage and place the pacemaker leads. She was implanted with an A zure dual chamber pacemaker, [employer]. Two screw-in leads. One in the atrium and one in the ventricl e. Pacemaker was set with the upper rate of 120 and lower rate was set at 60. There were no difficult ies or complications otherwise encountered. She was given 1 mg of IV Versed for conscious sedation. Throughout the procedure she was monitored by an independent observer for heart rate, blood pressure and L2 saturation and remained stable. Total sedation time was 60 minutes.
[2019-06-02] MEDS: Acetaminophen/Codeine 30-300mg Tablet PO PRN (20:54)
[2019-06-02] MEDS: Pravastatin Sodium 40 MG TAB PO SCH (20:54)
[2019-06-03] MEDS: Sulfameth/Trimethoprim DS 800-160mg TAB PO SCH ×2 (09:07→21:35)
[2019-06-03] MEDS: Oxybutynin 5 MG TAB PO SCH ×3 (09:07→21:35)
[2019-06-03] MEDS: buPROPion 75 MG TAB PO SCH ×2 (09:07→21:35)
[2019-06-03] MEDS: Furosemide 20 MG TAB PO SCH (09:09)
[2019-06-03] MEDS: Lisinopril 5 MG TAB PO SCH ×2 (09:09→21:35)
[2019-06-03] MEDS: Acetaminophen/Codeine 30-300mg Tablet PO PRN (09:12)
[2019-06-03] MEDS: ALPRAZolam 0.25 MG TAB PO PRN (13:09)
[2019-06-03] MEDS: traMADol HCl 50 MG TAB PO PRN (13:15)
--- NOTE | 2019-06-03 13:42 | EKG ---
Test Reason : Blood Pressure : / mmHG Vent. Rate : 047 BPM Atrial Rate : 047 BPM P-R Int : 198 ms QRS Dur : 090 ms QT Int : 444 ms P-R-T Axes : 044 -51 -19 degrees QTc Int : 392 ms Marked sinus bradycardia with sinus arrhythmia Left anterior fascicular block Possible Anterolateral infarct , age undetermined Abnormal ECG Confirmed by OLENA ARDON ([id number]), video tape editor TRESA MACHUCA ([id number]) on 06/03/2019 1:41:24 PM Referred By: Confirmed By:OLENA ARDON
--- NOTE | 2019-06-03 14:40 | PDOC.HOSPP ---
- Subjective Subjective: Feels ok. No complaints. Wants to consider some rehab. - Objective Vital Signs & Weight: Vital Signs (12 hours) Temp Pulse Resp BP BP Pulse Ox 06/03/19 11:55 99.2 F 73 18 142/67 H 92 L 06/03/19 09:09 64 06/03/19 09:05 94 L 06/03/19 07:40 98.1 F 69 18 147/65 H 94 L 06/03/19 03:16 97.8 F 64 21 H 135/58 L 94 L Weight Weight 225 lb 12.8 oz I&O: 06/02/19 06/03/19 06/04/19 06:59 06:59 06:59 Intake Total 450 600 Output Total 900 Balance -450 600 Result Diagrams: 06/02/19 07:36 06/02/19 07:36 Hospitalist ROS - Medication Medications: Active Medications Generic Name Dose Route Start Last Admin Trade Name Freq PRN Reason Stop Dose Admin Acetaminophen 650 mg 05/31/19 01:10 05/31/19 16:48 Tylenol PO 650 mg Q4H PRN Administration Headache/Fever/Mild Pain (1-3) Acetaminophen/Codeine Phosphate 1 tab 06/02/19 15:26 06/03/19 09:12 Tylenol #3 PO 1 tab Q6H PRN Administration Pain Alprazolam 0.25 mg 06/03/19 12:56 06/03/19 13:09 Xanax PO 0.25 mg TIDPRN PRN Administration Anxiety Bupropion HCl 75 mg 05/31/19 21:00 06/03/19 09:07 Wellbutrin PO 75 mg BID SAMSON Administration Furosemide 20 mg 06/01/19 09:00 06/03/19 09:09 Lasix PO 20 mg DAILY SAMSON Administration Lisinopril 5 mg 05/31/19 21:00 06/03/19 09:09 Zestril PO 5 mg BID SAMSON Administration Oxybutynin Chloride 5 mg 05/31/19 15:00 06/03/19 09:07 Ditropan PO 5 mg TID SAMSON Administration Pravastatin Sodium 40 mg 05/31/19 21:00 06/02/19 20:54 Pravachol PO 40 mg QPM SAMSON Administration Sodium Chloride 10 ml 06/01/19 21:00 06/03/19 09:09 Flush - Normal Saline IVF 10 ml Q12HR SAMSON Administration Tramadol HCl 50 mg 05/31/19 12:56 06/03/19 13:15 Ultram PO 50 mg Q6H PRN Administration Moderate Pain (4-6) Trimethoprim/Sulfamethoxazole 1 tab 06/01/19 09:00 06/03/19 09:07 Bactrim Ds PO 1 tab BID SAMSON Administration - Exam General Appearance: NAD, awake alert ENT: normocephalic atraumatic, no oropharyngeal lesions, moist mucosa Heart: RRR, no murmur, no gallops, no rubs, normal peripheral pulses Respiratory: CTAB, no wheezes, no rales, no ronchi, normal chest expansion, no tachypnea, normal percussion Gastrointestinal: soft, non-tender, non-distended, normal bowel sounds, no palpable masses, no hepatomegaly, no splenomegaly, no bruit Extremities: no cyanosis, no clubbing, no edema Skin: normal turgor Musculoskeletal: normal tone Psychiatric: normal affect, normal behavior, A&O x 3 Hosp A/P (1) Bradycardia Code(s): R00.1 - BRADYCARDIA, UNSPECIFIED Status: Acute (2) UTI (urinary tract infection) Status: Acute Qualifiers: Urinary tract infection type: acute cystitis Hematuria presence: without hematuria Qualified Code(s): N30.00 - Acute cystitis without hematuria (3) HTN (hypertension) Code(s): I10 - ESSENTIAL (PRIMARY) HYPERTENSION Status: Chronic Qualifiers: (4) Obesity (BMI 30-39.9) Code(s): E66.9 - OBESITY, UNSPECIFIED Status: Chronic (5) Depression Code(s): F32.9 - MAJOR DEPRESSIVE DISORDER, SINGLE EPISODE, UNSPECIFIED Status : Acute - Plan Doing well overall. Continue PO Bactrim for E coli UTI. Continue Keflex for post-procedure prophylaxis. She lives at [facility] in independent living. CM consult for possible rehab. Medically stable for DC anytime.
[2019-06-03] MEDS: Pravastatin Sodium 40 MG TAB PO SCH (21:35)
[2019-06-04] MEDS: Acetaminophen/Codeine 30-300mg Tablet PO PRN ×3 (00:12→22:47)
[2019-06-04] MEDS: buPROPion 75 MG TAB PO SCH ×2 (08:58→21:27)
[2019-06-04] MEDS: Lisinopril 5 MG TAB PO SCH ×2 (08:59→21:27)
[2019-06-04] MEDS: Sulfameth/Trimethoprim DS 800-160mg TAB PO SCH ×2 (08:59→21:27)
[2019-06-04] MEDS: Furosemide 20 MG TAB PO SCH (08:59)
[2019-06-04] MEDS: Oxybutynin 5 MG TAB PO SCH ×3 (08:59→21:27)
--- NOTE | 2019-06-04 09:29 | PDOC.HOSPP ---
- Subjective Encounter Date: 06/04/19 Encounter Time: 09:28 Subjective: Reports that she is getting well cared for and very happy with everyone here. She does have some left shoulder pain at the upper humerus. - Objective Vital Signs & Weight: Vital Signs (12 hours) Temp Pulse Resp BP BP Pulse Ox 06/04/19 08:59 61 113/71 06/04/19 07:35 97.8 F 61 16 113/71 95 06/04/19 04:00 97.5 F L 60 15 108/65 94 L 06/04/19 00:00 98.2 F 74 18 145/76 H 96 06/03/19 21:35 76 139/77 Weight Weight 225 lb 12.8 oz I&O: 06/03/19 06/04/19 06/05/19 06:59 06:59 06:59 Intake Total 2640 Output Total 200 Balance 2440 Result Diagrams: 06/02/19 07:36 06/02/19 07:36 Hospitalist ROS - Medication Medications: Active Medications Generic Name Dose Route Start Last Admin Trade Name Freq PRN Reason Stop Dose Admin Acetaminophen 650 mg 05/31/19 01:10 05/31/19 16:48 Tylenol PO 650 mg Q4H PRN Administration Headache/Fever/Mild Pain (1-3) Acetaminophen/Codeine Phosphate 1 tab 06/02/19 15:26 06/04/19 00:12 Tylenol #3 PO 1 tab Q6H PRN Administration Pain Alprazolam 0.25 mg 06/03/19 12:56 06/03/19 13:09 Xanax PO 0.25 mg TIDPRN PRN Administration Anxiety Bupropion HCl 75 mg 05/31/19 21:00 06/04/19 08:58 Wellbutrin PO 75 mg BID SAMSON Administration Furosemide 20 mg 06/01/19 09:00 06/04/19 08:59 Lasix PO 20 mg DAILY SAMSON Administration Lisinopril 5 mg 05/31/19 21:00 06/04/19 08:59 Zestril PO 5 mg BID SAMSON Administration Oxybutynin Chloride 5 mg 05/31/19 15:00 06/04/19 08:59 Ditropan PO 5 mg TID SAMSON Administration Pravastatin Sodium 40 mg 05/31/19 21:00 06/03/19 21:35 Pravachol PO 40 mg QPM SAMSON Administration Sodium Chloride 10 ml 06/01/19 21:00 06/04/19 08:59 Flush - Normal Saline IVF 10 ml Q12HR SAMSON Administration Tramadol HCl 50 mg 05/31/19 12:56 06/03/19 13:15 Ultram PO 50 mg Q6H PRN Administration Moderate Pain (4-6) Trimethoprim/Sulfamethoxazole 1 tab 06/01/19 09:00 06/04/19 08:59 Bactrim Ds PO 1 tab BID SAMSON Administration - Exam General Appearance: NAD, awake alert Heart: RRR, no murmur, no gallops, no rubs, normal peripheral pulses Heart - other findings: PPM site looks good. Respiratory: CTAB, no wheezes, no rales, no ronchi, normal chest expansion, no tachypnea, normal percussion Gastrointestinal: soft, non-tender, non-distended, normal bowel sounds, no palpable masses, no hepatomegaly, no splenomegaly, no bruit Extremities: no cyanosis, no clubbing, no edema Skin: normal turgor Musculoskeletal - other findings: TTP in the left shoulder joint. Psychiatric: normal affect, normal behavior, A&O x 3 Hosp A/P (1) Bradycardia Code(s): R00.1 - BRADYCARDIA, UNSPECIFIED Status: Acute (2) UTI (urinary tract infection) Status: Acute Qualifiers: Urinary tract infection type: acute cystitis Hematuria presence: without hematuria Qualified Code(s): N30.00 - Acute cystitis without hematuria (3) HTN (hypertension) Code(s): I10 - ESSENTIAL (PRIMARY) HYPERTENSION Status: Chronic Qualifiers: (4) Obesity (BMI 30-39.9) Code(s): E66.9 - OBESITY, UNSPECIFIED Status: Chronic (5) Depression Code(s): F32.9 - MAJOR DEPRESSIVE DISORDER, SINGLE EPISODE, UNSPECIFIED Status : Acute (6) Osteoarthritis of left shoulder Code(s): M19.012 - PRIMARY OSTEOARTHRITIS, LEFT SHOULDER Status: Acute - Plan Doing well overall. Continue PO Bactrim for E coli UTI. Continue Keflex for post-procedure prophylaxis. She lives at [facility] in independent living. CM consult for possible rehab. Medically stable for DC anytime. Her left shoulder pain is due to the OA seen on her CXR. OP follow up.
[2019-06-04] MEDS: Pravastatin Sodium 40 MG TAB PO SCH (21:27)
[2019-06-04] MEDS: diphenhydrAMINE 25 MG CAP PO PRN (22:47)
[2019-06-05] MEDS: Furosemide 20 MG TAB PO SCH (08:34)
[2019-06-05] MEDS: Lisinopril 5 MG TAB PO SCH ×2 (08:34→20:45)
[2019-06-05] MEDS: Sulfameth/Trimethoprim DS 800-160mg TAB PO SCH ×2 (08:34→20:45)
[2019-06-05] MEDS: Oxybutynin 5 MG TAB PO SCH ×3 (08:34→20:45)
[2019-06-05] MEDS: buPROPion 75 MG TAB PO SCH ×2 (08:34→20:45)
--- NOTE | 2019-06-05 18:28 | PDOC.HOSPP ---
- Subjective Subjective: Feels fine. A little weak with walking. - Objective Vital Signs & Weight: Vital Signs (12 hours) Temp Pulse Resp BP BP Pulse Ox 06/05/19 08:34 68 124/76 06/05/19 07:37 98.5 F 68 16 124/76 97 Weight Weight 225 lb 12.8 oz I&O: 06/04/19 06/05/19 06/06/19 06:59 06:59 06:59 Intake Total 2640 2050 Output Total 200 1980 Balance 2440 70 Result Diagrams: 06/02/19 07:36 06/02/19 07:36 Hospitalist ROS - Medication Medications: Active Medications Generic Name Dose Route Start Last Admin Trade Name Freq PRN Reason Stop Dose Admin Acetaminophen 650 mg 05/31/19 01:10 05/31/19 16:48 Tylenol PO 650 mg Q4H PRN Administration Headache/Fever/Mild Pain (1-3) Acetaminophen/Codeine Phosphate 1 tab 06/02/19 15:26 06/04/19 22:47 Tylenol #3 PO 1 tab Q6H PRN Administration Pain Alprazolam 0.25 mg 06/03/19 12:56 06/03/19 13:09 Xanax PO 0.25 mg TIDPRN PRN Administration Anxiety Bupropion HCl 75 mg 05/31/19 21:00 06/05/19 08:34 Wellbutrin PO 75 mg BID SAMSON Administration Diphenhydramine HCl 25 mg 06/04/19 22:29 06/04/19 22:47 Benadryl PO 25 mg Q6H PRN Administration Itching & Insomnia Furosemide 20 mg 06/01/19 09:00 06/05/19 08:34 Lasix PO 20 mg DAILY SAMSON Administration Lisinopril 5 mg 05/31/19 21:00 06/05/19 08:34 Zestril PO 5 mg BID SAMSON Administration Oxybutynin Chloride 5 mg 05/31/19 15:00 06/05/19 15:13 Ditropan PO 5 mg TID SAMSON Administration Pravastatin Sodium 40 mg 05/31/19 21:00 06/04/19 21:27 Pravachol PO 40 mg QPM SAMSON Administration Sodium Chloride 10 ml 06/01/19 21:00 06/05/19 08:34 Flush - Normal Saline IVF 10 ml Q12HR SAMSON Administration Tramadol HCl 50 mg 05/31/19 12:56 06/03/19 13:15 Ultram PO 50 mg Q6H PRN Administration Moderate Pain (4-6) Trimethoprim/Sulfamethoxazole 1 tab 06/01/19 09:00 06/05/19 08:34 Bactrim Ds PO 1 tab BID SAMSON Administration - Exam General Appearance: NAD, awake alert Neck: supple, symmetric, no JVD, no thyromegaly, no lymphadenopathy, no carotid bruit Heart: RRR, no murmur, no gallops, no rubs, normal peripheral pulses Heart - other findings: PPM site looks good. Respiratory: CTAB, no wheezes, no rales, no ronchi, normal chest expansion, no tachypnea, normal percussion Gastrointestinal: soft, non-tender, non-distended, normal bowel sounds, no palpable masses, no hepatomegaly, no splenomegaly, no bruit Skin: normal turgor Musculoskeletal: normal tone Psychiatric: normal affect, normal behavior, A&O x 3 Hosp A/P (1) Bradycardia Code(s): R00.1 - BRADYCARDIA, UNSPECIFIED Status: Acute (2) UTI (urinary tract infection) Status: Acute Qualifiers: Urinary tract infection type: acute cystitis Hematuria presence: without hematuria Qualified Code(s): N30.00 - Acute cystitis without hematuria (3) HTN (hypertension) Code(s): I10 - ESSENTIAL (PRIMARY) HYPERTENSION Status: Chronic Qualifiers: (4) Obesity (BMI 30-39.9) Code(s): E66.9 - OBESITY, UNSPECIFIED Status: Chronic (5) Depression Code(s): F32.9 - MAJOR DEPRESSIVE DISORDER, SINGLE EPISODE, UNSPECIFIED Status : Acute (6) Osteoarthritis of left shoulder Code(s): M19.012 - PRIMARY OSTEOARTHRITIS, LEFT SHOULDER Status: Acute - Plan Doing well overall. Continue PO Bactrim for E coli UTI. Continue Keflex for post-procedure prophylaxis. She lives at [facility] in independent living. CM consult for possible rehab. Medically stable for DC anytime. Her left shoulder pain is due to the OA seen on her CXR. OP follow up.
[2019-06-05] MEDS: diphenhydrAMINE 25 MG CAP PO PRN (20:45)
[2019-06-05] MEDS: Pravastatin Sodium 40 MG TAB PO SCH (20:45)
[2019-06-05] MEDS: Acetaminophen/Codeine 30-300mg Tablet PO PRN (20:46)
[2019-06-06] MEDS: Lisinopril 5 MG TAB PO SCH (08:04)
[2019-06-06] MEDS: Sulfameth/Trimethoprim DS 800-160mg TAB PO SCH (08:04)
[2019-06-06] MEDS: Oxybutynin 5 MG TAB PO SCH ×2 (08:04→14:17)
[2019-06-06] MEDS: buPROPion 75 MG TAB PO SCH (08:04)
[2019-06-06] MEDS: Acetaminophen/Codeine 30-300mg Tablet PO PRN (08:04)
[2019-06-06] MEDS: Furosemide 20 MG TAB PO SCH (08:04)
[2019-06-06] MEDS: diphenhydrAMINE 25 MG CAP PO PRN (08:05)
[2019-06-06] MEDS: ALPRAZolam 0.25 MG TAB PO PRN (14:17)
[2019-06-06 14:21] VITALS: BP 132/73; TEMP 98.6
--- NOTE | 2019-06-06 18:26 | EKG ---
Test Reason : ROUTINE Blood Pressure : / mmHG Vent. Rate : 065 BPM Atrial Rate : 065 BPM P-R Int : 184 ms QRS Dur : 090 ms QT Int : 436 ms P-R-T Axes : 004 -59 -21 degrees QTc Int : 453 ms Normal sinus rhythm Left anterior fascicular block Possible Septal infarct (cited on or before 06-JUN-2013) Abnormal ECG When compared with ECG of 30-MAY-2019 21:09, Questionable change in initial forces of Anterolateral leads Nonspecific T wave abnormality no longer evident in Anterior leads QT has lengthened Confirmed by EDGAR MATTHEWS, SLalo ([id number]) on 06/06/2019 6:26:19 PM Referred By: Confirmed By:DR. Antwan HERNÁNDEZ MD
== END 2019-06-06 14:37 | DRG 243 ==
LOC: ERS 20:36 → 2SW 23:44 → OBSVTOIN 05-31 15:20 → 2NO 05-31 21:13 → T4-B 06-03 18:15
PROVIDERS: ADMIT Internal Medicine; ATTEND Internal Medicine
PROC: 0JH606Z Insertion of Pacemaker, Dual Chamber into Chest Subcutaneous Tissue and Fascia, Open Approach (ICD-10-PCS; principal; 2019-06-01)
PROC: 02H63JZ Insertion of Pacemaker Lead into Right Atrium, Percutaneous Approach (ICD-10-PCS; 2019-06-01)
PROC: 02HK3JZ Insertion of Pacemaker Lead into Right Ventricle, Percutaneous Approach (ICD-10-PCS; 2019-06-01)
DX: I49.5 Sick sinus syndrome (principal); N17.9 Acute kidney failure, unspecified; N30.00 Acute cystitis without hematuria; E78.5 Hyperlipidemia, unspecified; I10 Essential (primary) hypertension; F32.9 Major depressive disorder, single episode, unspecified; N32.81 Overactive bladder; Z96.653 Presence of artificial knee joint, bilateral; E66.9 Obesity, unspecified; B96.20 Unspecified Escherichia coli [E. coli] as the cause of diseases classified elsewhere; R00.1 Bradycardia, unspecified; M19.012 Primary osteoarthritis, left shoulder; Z68.36 Body mass index [BMI] 36.0-36.9, adult; Z88.5 Allergy status to narcotic agent; Z79.899 Other long term (current) drug therapy
CPT/HCPCS: 33208; 36005; 36415; 51701; 71045; 75820; 80048; 80053; 81003; 81015; 83735; 83880; 84443; 84484; 85025; 85610; 85730; 87077; 87086; 87186; 93005; 93010; 93306; 93798; 94760; 96361; 96365; 99152; 99153; A4353; C1785; C1898; J0690; J0696; J1580; J1885; J2001; J2250; J3490; Q0163

== ENCOUNTER 2019-08-18 12:17 | Emergency (ER) | payer MEDICARE ==
--- NOTE | 2019-08-18 13:33 | RAD ---
LEFT SHOULDER THREE VIEWS: HISTORY: Should pain. FINDINGS: There are moderately severe degenerative changes. There is loss of joint space at the glenohumeral abdifatah int and there is prominent spurring from the humeral head. The humeral head rides high in the joint, suggesting chronic rotator cuff tear. Degenerative spurring from the AC joint is noted. Subchondral c ystic changes are seen on both sides of the glenohumeral joint. IMPRESSION: Moderately severe degenerative changes at the left shoulder, as described. POS: FAITH
--- NOTE | 2019-08-22 13:58 | EKG ---
Test Reason : Blood Pressure : / mmHG Vent. Rate : 060 BPM Atrial Rate : 241 BPM P-R Int : 000 ms QRS Dur : 088 ms QT Int : 498 ms P-R-T Axes : 000 -61 -33 degrees QTc Int : 498 ms Normal sinus rhythm Left anterior fascicular block Possible Lateral infarct , age undetermined Abnormal ECG Left axis deviation Confirmed by CARLA MCCRAY MD ([id number]), editor trade journal AGUS VERDUZCO ([id number]) on 08/22/2019 1:58:03 PM Referred By: Confirmed By:CARLA MCCRAY MD
== END 2019-08-18 16:10 | disposition home or self-care (01) ==
LOC: ERS 12:17
DX: M19.012 Primary osteoarthritis, left shoulder (principal); E78.5 Hyperlipidemia, unspecified; E78.00 Pure hypercholesterolemia, unspecified; I10 Essential (primary) hypertension; F41.9 Anxiety disorder, unspecified; Z79.899 Other long term (current) drug therapy
CPT/HCPCS: 93005

== ENCOUNTER 2019-08-22 13:33 | Emergency (ER) | payer MEDICARE ==
--- NOTE | 2019-08-22 14:28 | RAD ---
Chest one view HISTORY: Chest pain. COMPARISON: 06/02/2019. FINDINGS: Cardiac silhouette is magnified and enlarged. Pulmonary vasculature are unremarkable. Mediastinum is midline with aortic calcification. A dual lead left subclavian cardiac electronic edmund ce is unchanged in position. No evidence of pneumothorax. Degenerative postoperative changes of the shoulders partially visualized. IMPRESSION: Stable radiographic appearance of the left subclavian cardiac electronic device. Cardiomegaly. Chronic-type findings are stable.
== END 2019-08-22 17:07 | disposition home or self-care (01) ==
LOC: ERS 13:33
DX: Z45.010 Encounter for checking and testing of cardiac pacemaker pulse generator [battery] (principal); E78.5 Hyperlipidemia, unspecified; E78.00 Pure hypercholesterolemia, unspecified; I10 Essential (primary) hypertension; M19.90 Unspecified osteoarthritis, unspecified site; F41.9 Anxiety disorder, unspecified; Z79.899 Other long term (current) drug therapy
CPT/HCPCS: 71045; 93005; 94760

== ENCOUNTER 2019-08-23 18:22 | Emergency (ER) | payer MEDICARE ==
[2019-08-23 19:41] LABS: #Eosinphils 0.1 thou/uL (0.0-0.7); #Lymphocytes 1.2 thou/uL (1.20-3.40); #Monocytes 0.9 thou/uL (0.11-0.59); #Neutrophils 5.9 thou/uL (1.40-6.50); %Basophils 0.5 % (0.0-1.0); %Monocytes 11.2 % (0.0-10.0); %Neutrophils 72.2 % (42.0-75.0); Hemoglobin 14.7 g/dL (12.0-16.0); Mean Corpuscular Hemoglobin 29.2 pg (27.0-31.0); Mean Corpuscular Volume 88.5 fL (78.0-98.0); Mean Platelet Volume 7.5 fL (7.4-10.4); Platelet Count 210 thou/uL (130-400); RBC Distribution Width 11.9 % (11.5-14.5); Red Blood Cell (RBC) Count 5.05 mill/uL (4.20-5.40); White Blood Cell (WBC) Count 8.1 thou/uL (4.8-10.8)
[2019-08-23 19:57] LABS: ALT (SGPT) 28 U/L (8-55); AST (SGOT) 50 U/L (5-34); Albumin 4.1 g/dL (3.4-4.8); Alkaline Phosphatase 81 U/L (40-110); Anion Gap 13 mmol/L (10-20); BUN (Urea Nitrogen) 13 mg/dL (9.8-20.1); Bilirubin, Total 0.8 mg/dL (0.2-1.2); Calc. Creatinine Clearance 0 mL/min (70-130); Carbon Dioxide 28 mmol/L (23-31); Chloride 103 mmol/L (98-107); Estimated GFR-MDRD 72; Glucose 98 mg/dL (83-110); Potassium 3.6 mmol/L (3.5-5.1); Protein, Total 8.1 g/dL (6.0-8.3); Sodium 140 mmol/L (136-145)
[2019-08-23 20:01] LABS: Bacteria/HPF 4+ HPF (None Seen); Bilirubin Negative (Negative); Blood, Urine 1+ (Negative); Clarity Turbid (Clear); Glucose, Urine (Dipstick) Normal (Negative); Leukocyte 250 Leu/uL (Negative); Nitrite Negative (Negative); Protein, Urine (Dipstick) 50 mg/dL (Neg-Trace); RBC/HPF 0-3 HPF (0-3); WBC/HPF 21-50 HPF (0-3)
--- NOTE | 2019-08-23 20:17 | CT ---
CT HEAD WITHOUT IV CONTRAST COMPARISON: 12/28/2016 HISTORY: Altered mental status. TECHNIQUE: Axial CT imaging at 5 mm intervals from vertex through skull base without contrast FINDINGS: There is confluent decreased attenuation in the periventricular white matter which is nonspecific but likely reflective of severe chronic small vessel ischemic changes. There is mild cerebral volume loss. The ventricular system is normal in size, shape, and position for the degree of sulcal atrophy. Small low-density focus is seen in the left thalamus likely related to a lacunar infarction of indete rminate age. There is no evidence of an acute cortical infarction, hemorrhage, mass effect, or midline shift. Visualized paranasal sinuses are clear. Osseous structures appear intact. IMPRESSION: 1. 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 No acute cortical infarction is seen. 2. Findings most likely attributable to severe chronic small vessel ischemic changes. 3. Cerebral volume loss.
--- NOTE | 2019-08-23 20:41 | RAD ---
Exam: XR Shoulder Lt 3 View STANDARD HISTORY: Trauma to left shoulder. Multiple falls. COMPARISON: 08/18/2019 FINDINGS: Severe left glenohumeral osteoarthropathy is again seen. Prominent joint space narrowing and osteophy te formation is again seen with subchondral sclerosis. Mild left acromioclavicular joint osteoarthritis is noted. No acute fracture, dislocation, or other acute osseous abnormality is identified. Partial visualization of a dual-lead left subclavian cardiac pacemaking device is again noted. IMPRESSION: 1. No acute osseous abnormality left shoulder. 2. Stable severe left glenohumeral osteoarthropathy.
[2019-08-23] MEDS ORDERED: cefTRIAXone\\ROCEPHIN 1 GM VIAL ONE (20:52)
== END 2019-08-23 22:15 | disposition home or self-care (01) ==
LOC: ERS 18:22
DX: E86.0 Dehydration (principal); N39.0 Urinary tract infection, site not specified; M19.90 Unspecified osteoarthritis, unspecified site; E78.5 Hyperlipidemia, unspecified; E78.00 Pure hypercholesterolemia, unspecified; I10 Essential (primary) hypertension; F41.9 Anxiety disorder, unspecified; Z79.899 Other long term (current) drug therapy
CPT/HCPCS: 51701; 70450; 80053; 81003; 81015; 83605; 85025; 87086; 93005; 96361; 96374; A4353; J0696

== ENCOUNTER 2019-09-07 17:39 | Observation (INO) | payer MEDICARE ==
[2019-09-07 19:14] LABS: #Eosinphils 0.1 thou/uL (0.0-0.7); #Lymphocytes 1.5 thou/uL (1.20-3.40); #Monocytes 0.5 thou/uL (0.11-0.59); #Neutrophils 3.2 thou/uL (1.40-6.50); %Basophils 0.4 % (0.0-1.0); %Eosinophils 2.2 % (0.0-10.0); %Monocytes 9.4 % (0.0-10.0); Hemoglobin 13.2 g/dL (12.0-16.0); Mean Corpuscular HGB CONC 31.5 g/dL (32.0-36.0); Mean Corpuscular Hemoglobin 28.5 pg (27.0-31.0); Mean Corpuscular Volume 90.3 fL (78.0-98.0); Mean Platelet Volume 7.7 fL (7.4-10.4); Platelet Count 220 thou/uL (130-400); RBC Distribution Width 12.1 % (11.5-14.5); Red Blood Cell (RBC) Count 4.64 mill/uL (4.20-5.40); White Blood Cell (WBC) Count 5.4 thou/uL (4.8-10.8)
[2019-09-07 19:34] LABS: ALT (SGPT) 11 U/L (8-55); AST (SGOT) 17 U/L (5-34); Albumin 3.7 g/dL (3.4-4.8); Alkaline Phosphatase 72 U/L (40-110); Anion Gap 11 mmol/L (10-20); BUN (Urea Nitrogen) 16 mg/dL (9.8-20.1); Bilirubin, Total 0.3 mg/dL (0.2-1.2); Calc. Creatinine Clearance 0 mL/min (70-130); Calcium 9.1 mg/dL (7.8-10.44); Carbon Dioxide 28 mmol/L (23-31); Chloride 110 mmol/L (98-107); Estimated GFR-MDRD 73; Globulin 3.5 g/dL (2.4-3.5); Glucose 93 mg/dL (83-110); Potassium 3.5 mmol/L (3.5-5.1); Protein, Total 7.2 g/dL (6.0-8.3); Sodium 145 mmol/L (136-145)
--- NOTE | 2019-09-07 20:46 | CT ---
NONCONTRAST CT HEAD: 09/07/19 HISTORY: Transient confusion and disorientation. Altered mental status. COMPARISON: 08/23/19 FINDINGS: Again noted is confluent diminished attenuation throughout the periventricular white matter which is nonspecific but likely reflective of severe chronic small vessel ischemic changes. Low density area i s again present in the left thalamus likely related to lacunar infarction of indeterminate age, but t his is stable compared to prior study. There is no evidence of an acute cortical infarction, hemorrhage, mass effect or midline shift. Cerebral and cerebellar volume loss is again noted. The ventricular system is normal in size, shape a nd position for the degree of sulcal atrophy. CT of the head is stable compared to the prior exam. IMPRESSION: Stable chronic findings without evidence of an acute cardiopulmonary process. POS: JOSE
[2019-09-07 21:28] LABS: Bilirubin Negative (Negative); Blood, Urine Negative (Negative); Clarity Clear (Clear); Glucose, Urine (Dipstick) Normal (Negative); Leukocyte Negative Leu/uL (Negative); Nitrite Negative (Negative); Protein, Urine (Dipstick) 10 mg/dL (Neg-Trace); Urobilinogen Normal mg/dL (Less than 2)
[2019-09-07] MEDS ORDERED: Aspirin Chewable 81 MG TAB ONE (22:27)
--- NOTE | 2019-09-08 04:48 | HP ---
PRIMARY CARE PHYSICIAN: None. CHIEF COMPLAINT: Altered mental status and weakness. HISTORY OF PRESENT ILLNESS: This is an 84-year-old female, resident of [facility] with a past medical history of hypertension, permanent pacemaker implantation for bradycardia, reported recent stroke per ER staff, and recent urinary tract infection on oral antibiotics, who was brought into [facility] for concerns of altered mental status and weakness that started earlier today. The patient reports that she went to bed late last night and was up until 2 o'clock in the morning having hair done and was tired this morning when she was awoken. At the time when patient arrived to the emergency department, she was reported to be awake, alert, and oriented with no focal deficits. CBC, chemistries, urinalysis, and noncontrast head CT were unremarkable. The patient was administered IV fluids and admitted for further evaluation. At bedside, the patient offers no acute complaints. She feels back to her baseline. She states she recently had home health care services, but left. She uses a walker and cane to ambulate and denies any recent falls. She is unclear whether or not she would benefit from additional rehabilitation. Nursing staff notes no other acute events. Advanced directives were discussed with the patient and would like to maintain do not resuscitate and do not intubate. REVIEW OF SYSTEMS: Pertinent positives as per HPI. Remainder of review of systems negative. PAST MEDICAL HISTORY: Morbid obesity, hypertension, osteoarthritis, overactive bladder, recent urinary tract infection, permanent pacemaker for symptomatic bradycardia, possible recent stroke. PAST SURGICAL HISTORY: Permanent pacemaker implantation, knee surgery. SOCIAL HISTORY: The patient is a resident of [facility]. She uses a walker and cane to ambulate. She denies any recent falls. ALLERGIES: . HOME MEDICATIONS: Home medication will be reviewed as per admission medication reconciliation. FAMILY HISTORY: Documented for longevity in patient's parents. PHYSICAL EXAMINATION: VITAL SIGNS: T-max afebrile at 97.5, pulse 66, blood pressure 165/79, oxygen saturation 96% on room air, respirations 18 and unlabored. GENERAL APPEARANCE: Elderly female, who is awake, alert, oriented, quite lucid, not in any obvious distress, not disoriented. HEENT: Normocephalic, atraumatic. No facial asymmetry. Pupils equally round. Extraocular muscles intact. Moist mucous membranes. NECK: Supple. CARDIOVASCULAR: S1 and S2. Regular rate and rhythm. No harsh murmurs. No reproducible chest wall tenderness to palpation. Left chest wall pacemaker pocket site noted. LUNGS: Bilateral equal air entry on anterior auscultation. Nonlabored respirations. No wheezing or rales. ABDOMEN: Soft, nontender, and nondistended. No peritoneal signs appreciated. EXTREMITIES: There is some mild erythema overlying the distal right lower extremity. No edema, cyanosis, or deformity. SKIN: Otherwise warm to touch without rash or pallor or abrasion. LABORATORY VALUES: WBC 5.4, H and H 13.2/41.9, platelets 220. Chemistry; sodium 145, potassium 3.5, chloride 110, bicarb 28, glucose 93, BUN and creatinine 16/0.9. LFTs unremarkable. Troponin negative x1. Urinalysis unremarkable. IMAGING: A noncontrast head CT on 09/07/2019, reveals no acute pathology with stable chronic findings. ASSESSMENT: 1. Altered mental status of unspecified etiology, resolved. The patient reports that she is back toward her baseline. She states she stayed very late the night prior and was fatigued when she was awoken this morning. Details are vague. Thus, the patient will be admitted as observation status and placed on telemetry monitoring. We will continue remainder of home medications. We will minimize any psychotropics and sedatives. We will consult PT and OT for gait evaluation. The patient will likely benefit from additional therapy services, which appropriate location will need to be determined. 2. History of recent urinary tract infection. The patient reports near completion of her oral antibiotic regimen. The patient denies ever having any urinary symptoms. 3. History of recent permanent pacemaker implantation for symptomatic bradycardia in late 2019. 4. Hypertension, benign. 5. Morbid obesity. 6. Osteoarthritis. 7. History of overactive bladder. Continue oxybutynin. 8. Deep venous thrombosis prophylaxis: Lovenox. 9. Code status: DNR and DNI. Discussed with patient. This was also reiterated by the patient to nursing staff. The patient reports she is in the process of getting advanced directive set up. She does not have any immediate family and states that her friend, Crystal, who is a retired nurse would be her surrogate decision maker. DISPOSITION: Telemetry observation status. Job ID: [id number]
[2019-09-08] MEDS ORDERED: AMOXicillin 250 MG CAP PO SCH (09:00)
[2019-09-08 10:37] VITALS: BMI 44.0
[2019-09-08] MEDS: Enoxaparin Sodium 40 MG/0.4 ML SYRINGE SC SCH (10:38)
[2019-09-08] MEDS: buPROPion 75 MG TAB PO SCH ×2 (10:39→20:24)
[2019-09-08] MEDS: Furosemide 20 MG TAB PO SCH (10:39)
[2019-09-08] MEDS: Lisinopril 5 MG TAB PO SCH ×2 (10:39→20:24)
[2019-09-08] MEDS: Oxybutynin 5 MG TAB PO SCH ×3 (10:39→20:24)
--- NOTE | 2019-09-08 13:51 | PDOC.HOSPP ---
- Subjective Encounter Date: 09/08/19 Encounter Time: 13:35 Subjective: f/u for AMS, deconditioning and falls. Initial work up unrevealing but pt remains weak. No new complaints. - Objective Vital Signs & Weight: Vital Signs (12 hours) Temp Pulse Resp BP BP Pulse Ox 09/08/19 11:12 97.8 F 64 18 156/68 H 98 09/08/19 10:39 66 186/85 H 09/08/19 07:39 97.6 F 66 23 H 186/85 H 98 09/08/19 04:00 97.4 F L 59 L 20 139/67 97 Weight Admit Weight 273 lb Weight 273 lb Result Diagrams: 09/07/19 19:01 09/07/19 19:01 Additional Labs: Microbiology 09/07/19 20:09 Nasal swab Influenza Types A,B Direct EIA - Final 09/07/19 21:17 Urine Straight Catheter Urine Culture - Preliminary NO GROWTH AT 12 HOURS Radiology Reviewed by me: Yes (CT brain - no acute process) EKG Reviewed by me: Yes (Tele - Sinus) Hospitalist ROS - Medication Medications: Active Medications Generic Name Dose Route Start Last Admin Trade Name Freq PRN Reason Stop Dose Admin Amoxicillin 500 mg 09/08/19 09:00 09/08/19 10:38 Amoxil PO 500 mg TID SAMSON Administration Bupropion HCl 75 mg 09/08/19 09:00 09/08/19 10:39 Wellbutrin PO 75 mg BID SAMSON Administration Enoxaparin Sodium 40 mg 09/08/19 09:00 09/08/19 10:38 Lovenox SC 40 mg 09 SAMSON Administration Furosemide 20 mg 09/08/19 09:00 09/08/19 10:39 Lasix PO 20 mg DAILY SAMSON Administration Lisinopril 5 mg 09/08/19 09:00 09/08/19 10:39 Zestril PO 5 mg BID SAMSON Administration Oxybutynin Chloride 5 mg 09/08/19 09:00 09/08/19 10:39 Ditropan PO 5 mg TID SAMSON Administration Sertraline HCl 50 mg 09/08/19 09:00 09/08/19 10:39 Zoloft PO 50 mg DAILY SAMSON Administration Sodium Chloride 10 ml 09/07/19 23:54 09/08/19 10:40 Flush - Normal Saline IVF 10 ml PRN PRN Administration Saline Flush - Exam General Appearance: NAD, awake alert Eye: PERRL, anicteric sclera ENT: normocephalic atraumatic, no oropharyngeal lesions Neck: supple, symmetric, no JVD, no thyromegaly Heart: RRR, no gallops, no rubs, normal peripheral pulses Respiratory: CTAB, no wheezes, no rales, no ronchi Gastrointestinal: soft, non-tender, non-distended, normal bowel sounds, no palpable masses Extremities: no cyanosis, no clubbing, no edema Skin: normal turgor, no lesions Neurological: cranial nerve grossly intact, no new deficit Musculoskeletal: normal tone, generalized weakness Psychiatric: A&O x 3 Hosp A/P (1) Acute encephalopathy Code(s): G93.40 - ENCEPHALOPATHY, UNSPECIFIED Status: Acute Plan: Transient, ? etiology, supportive mgmt (2) Physical deconditioning Code(s): R53.81 - OTHER MALAISE Status: Chronic Plan: PT/OT for functional assessment, SNF options pending (3) Fall Code(s): W19.XXXA - UNSPECIFIED FALL, INITIAL ENCOUNTER Status: Acute Qualifiers: Encounter type: subsequent encounter Qualified Code(s): W19.XXXD - Unspecified fall, subsequent encounter Plan: Recurrent per pt report, see above (4) HTN (hypertension) Code(s): I10 - ESSENTIAL (PRIMARY) HYPERTENSION Status: Chronic Qualifiers: Hypertension type: essential hypertension Plan: Resume home BP regimen, serial monitoring (5) Obesity (BMI 30-39.9) Code(s): E66.9 - OBESITY, UNSPECIFIED Status: Chronic (6) UTI (urinary tract infection) Status: Acute Qualifiers: Urinary tract infection type: acute cystitis Hematuria presence: without hematuria Qualified Code(s): N30.00 - Acute cystitis without hematuria Plan: Resolved, d/c abx - Plan PT/OT, protective services social worker, out of bed/ambulate, DVT proph w/SCDs Stable currently CM for SNF options PT/OT for functional assessment Resume home BP regimen Fall risk precautions
[2019-09-08] MEDS: Atorvastatin Calcium 10 MG TAB PO SCH (20:24)
[2019-09-08] MEDS: Acetaminophen 325 MG TAB PO PRN (22:02)
[2019-09-09 05:41] LABS: Anion Gap 11 mmol/L (10-20); BUN (Urea Nitrogen) 15 mg/dL (9.8-20.1); Calc. Creatinine Clearance 105 mL/min (70-130); Calcium 8.8 mg/dL (7.8-10.44); Carbon Dioxide 26 mmol/L (23-31); Chloride 107 mmol/L (98-107); Estimated GFR-MDRD 84; Glucose 91 mg/dL (83-110); Magnesium 1.9 mg/dL (1.6-2.6); Potassium 3.7 mmol/L (3.5-5.1); Sodium 140 mmol/L (136-145)
[2019-09-09 08:39] LABS: #Eosinphils 0.2 thou/uL (0.0-0.7); #Lymphocytes 1.6 thou/uL (1.20-3.40); #Monocytes 0.5 thou/uL (0.11-0.59); #Neutrophils 3.6 thou/uL (1.40-6.50); %Basophils 0.5 % (0.0-1.0); %Lymphocytes 26.5 % (21.0-51.0); %Monocytes 8.8 % (0.0-10.0); %Neutrophils 61.2 % (42.0-75.0); Hemoglobin 14.1 g/dL (12.0-16.0); Mean Corpuscular HGB CONC 32.8 g/dL (32.0-36.0); Mean Corpuscular Hemoglobin 29.7 pg (27.0-31.0); Mean Corpuscular Volume 90.7 fL (78.0-98.0); Mean Platelet Volume 7.9 fL (7.4-10.4); Platelet Count 205 thou/uL (130-400); RBC Distribution Width 12.1 % (11.5-14.5); Red Blood Cell (RBC) Count 4.74 mill/uL (4.20-5.40); White Blood Cell (WBC) Count 5.9 thou/uL (4.8-10.8)
[2019-09-09] MEDS: Furosemide 20 MG TAB PO SCH (09:00)
[2019-09-09] MEDS: Oxybutynin 5 MG TAB PO SCH ×3 (09:00→22:10)
[2019-09-09] MEDS: Enoxaparin Sodium 40 MG/0.4 ML SYRINGE SC SCH (09:00)
[2019-09-09] MEDS: buPROPion 75 MG TAB PO SCH ×2 (09:01→22:11)
[2019-09-09] MEDS: Lisinopril 5 MG TAB PO SCH (09:01)
--- NOTE | 2019-09-09 15:45 | PRG ---
DATE OF SERVICE: 09/09/2019 SUBJECTIVE: The patient was seen at bedside, currently alert, awake, and oriented. Complaints of frequent falls recently, and also she has issues with speech, but clinically does not look in distress. Denies any chest pain, shortness of breath, nausea, vomiting, diarrhea, or abdominal pain. PHYSICAL EXAMINATION: VITAL SIGNS: Blood pressure 170/82, temperature 98.5, pulse 80, respirations 18, and oxygen saturation 92% on room air. GENERAL: The patient is lying in bed, comfortably in no distress. HEENT: Conjunctivae normal. Oral mucosa moist. NECK: Supple. No JVD. No lymphadenopathy. CHEST: Normal vesicular breathing. HEART: Sounds normal. ABDOMEN: Soft, benign, nontender. No visceromegaly. NEUROLOGIC: Cranial nerves grossly intact. LABORATORY DATA: CBC unremarkable today. BMP unremarkable except for magnesium 1.9. Troponin 0.022. UA negative. IMAGING STUDIES: CT brain on admission negative. IMPRESSION: 1. Acute encephalopathy, unclear cause, possible related to hypertensive urgency. The patient's blood pressure is still high. The patient is alert, awake, oriented, concerned about being frequent falls. CT brain on admission was negative. The patient will get CT brain in the morning as the patient has a pacemaker, currently being investigated. If the MRI can be done with the pacemaker, but if not, we will get CT brain in the morning. The patient's lab work and CT brain negative for acute findings. We will continue to monitor mental status. Currently, the patient is alert, awake, oriented x3. 2. Hypertension with uncontrolled hypertension and hypertensive urgency. Increase lisinopril dose. 3. History of recent urinary tract infection, status post antibiotic therapy. Currently, UA is negative. 4. History of recent pacemaker placement. Pacemaker interrogation without acute finding. 5. Osteoarthritis. Continue pain medication as needed. 6. History of cerebrovascular accident. Continue supportive therapy and antiplatelet therapy. 7. Code status is DNR/DNI. 8. Deep venous thrombosis and gastrointestinal prophylaxis. Plan discussed with the patient and nursing staff in detail. Job ID: [id number]
[2019-09-09] MEDS: Atorvastatin Calcium 10 MG TAB PO SCH (22:10)
[2019-09-09] MEDS: Lisinopril 10 MG TAB PO SCH (22:10)
[2019-09-09] MEDS: Acetaminophen 325 MG TAB PO PRN (22:10)
[2019-09-10 04:27] LABS: #Eosinphils 0.1 thou/uL (0.0-0.7); #Lymphocytes 1.3 thou/uL (1.20-3.40); #Monocytes 0.5 thou/uL (0.11-0.59); #Neutrophils 3.5 thou/uL (1.40-6.50); %Basophils 0.3 % (0.0-1.0); %Eosinophils 2.4 % (0.0-10.0); %Lymphocytes 23.3 % (21.0-51.0); %Monocytes 9.8 % (0.0-10.0); %Neutrophils 64.2 % (42.0-75.0); Hemoglobin 13.2 g/dL (12.0-16.0); Mean Corpuscular HGB CONC 32.6 g/dL (32.0-36.0); Mean Corpuscular Volume 88.9 fL (78.0-98.0); Mean Platelet Volume 7.6 fL (7.4-10.4); Platelet Count 212 thou/uL (130-400); RBC Distribution Width 11.9 % (11.5-14.5); Red Blood Cell (RBC) Count 4.57 mill/uL (4.20-5.40); White Blood Cell (WBC) Count 5.5 thou/uL (4.8-10.8)
[2019-09-10 04:58] LABS: Anion Gap 9 mmol/L (10-20); BUN (Urea Nitrogen) 13 mg/dL (9.8-20.1); Calc. Creatinine Clearance 90 mL/min (70-130); Calcium 8.9 mg/dL (7.8-10.44); Carbon Dioxide 28 mmol/L (23-31); Chloride 107 mmol/L (98-107); Estimated GFR-MDRD 70; Glucose 96 mg/dL (83-110); Sodium 140 mmol/L (136-145)
--- NOTE | 2019-09-10 09:07 | CT ---
Exam: Head CT without contrast HISTORY: CVA. COMPARISON: 09/07/2019 FINDINGS: Hemorrhage: No intraparenchymal hemorrhage or extra-axial hematoma. Brain parenchyma: Cortical orona-white matter differentiation is preserved. No mass effect or midline shift. Basilar cisterns are patent.Stable confluent white matter hypodensities due to chronic small vessel ischemic change Ventricular system: Ventricles and sulci are patent and symmetric. Calvarium: Intact. Sinuses and mastoid air cells: Adequate aeration. IMPRESSION: 1. No significant interval change 2. Chronic small vessel ischemic changes white matter. 3. No acute intracranial process
[2019-09-10] MEDS: Acetaminophen 325 MG TAB PO PRN ×2 (09:24→23:13)
[2019-09-10] MEDS: buPROPion 75 MG TAB PO SCH ×2 (09:24→23:14)
[2019-09-10] MEDS: Lisinopril 10 MG TAB PO SCH ×2 (09:25→23:14)
[2019-09-10] MEDS: Oxybutynin 5 MG TAB PO SCH ×3 (09:25→23:13)
[2019-09-10] MEDS: Furosemide 20 MG TAB PO SCH (09:25)
[2019-09-10] MEDS: Enoxaparin Sodium 40 MG/0.4 ML SYRINGE SC SCH (09:25)
--- NOTE | 2019-09-10 13:30 | PRG ---
DATE OF SERVICE: 09/10/2019 SUBJECTIVE: The patient is seen at bedside, awake, alert, oriented, but complains of weak and cannot function properly and worried about her falls. Denies any chest pain, shortness of breath. No nausea, vomiting, diarrhea, abdominal pain. OBJECTIVE: VITAL SIGNS: Blood pressure 172/73, temperature 98.6, pulse 60, respirations 16, oxygen saturation 96%. GENERAL: The patient is lying in bed comfortably, in no distress. HEENT: Conjunctivae normal. Oral mucosa moist. NECK: Supple. No JVD. No lymphadenopathy. CHEST: Normal vesicular breathing. HEART: Sounds normal. ABDOMEN: Soft. EXTREMITIES: Negative edema of feet. No rash. No cyanosis. LABORATORY DATA: BMP unremarkable. Repeat CT brain negative for acute findings. IMPRESSION: 1. Acute encephalopathy, unclear cause, possible related to hypertensive urgency. The patient's blood pressure improving, however, has occasional blood pressure high readings. The patient currently alert, awake, oriented, concerned about frequent falls. Repeat CT brain negative for acute findings. Pacemaker interrogation was without any acute abnormality. Continue physical therapy evaluation. No evidence of precipitating factor. 2. Hypertension with uncontrolled hypertension and hypertensive urgency. Continue to monitor blood pressure. The patient may need to add another medication. 3. History of recent urinary tract infection, status post antibiotic therapy. Currently, UA is negative. 4. History of pacemaker placement. Pacemaker interrogation without acute finding. 5. History of osteoarthritis. Continue pain medication as needed. 6. History of cerebrovascular accident. Continue supportive therapy and antiplatelet therapy. 7. DNR/DNI. 8. Functional decline. Pending the patient's placement to SNF. Job ID: [id number]
[2019-09-10] MEDS: Atorvastatin Calcium 10 MG TAB PO SCH (23:13)
[2019-09-11] MEDS: Acetaminophen 325 MG TAB PO PRN ×2 (09:21→22:23)
[2019-09-11] MEDS: Oxybutynin 5 MG TAB PO SCH ×3 (09:22→22:23)
[2019-09-11] MEDS: Furosemide 20 MG TAB PO SCH (09:22)
[2019-09-11] MEDS: Enoxaparin Sodium 40 MG/0.4 ML SYRINGE SC SCH (09:23)
[2019-09-11] MEDS: buPROPion 75 MG TAB PO SCH ×2 (09:23→22:23)
[2019-09-11] MEDS: Lisinopril 10 MG TAB PO SCH ×2 (09:24→22:26)
--- NOTE | 2019-09-11 12:09 | PDOC.HOSPP ---
- Subjective Encounter Date: 09/11/19 Encounter Time: 10:00 Subjective: awake, responds well to verbal questions has amb with PT - Objective Vital Signs & Weight: Vital Signs (12 hours) Temp Pulse Pulse Pulse Resp BP BP 09/11/19 11:00 98.3 F 75 18 09/11/19 09:51 80 69 141/76 H 09/11/19 09:24 152/73 H 09/11/19 07:00 98.1 F 74 16 09/11/19 03:18 98.3 F 73 18 BP BP Pulse Ox 09/11/19 11:00 145/71 H 98 09/11/19 09:51 155/65 H 09/11/19 09:24 09/11/19 07:00 159/73 H 97 09/11/19 03:18 131/64 97 Weight Admit Weight 273 lb Weight 273 lb I&O: 09/10/19 09/11/19 09/12/19 06:59 06:59 06:59 Intake Total 240 800 120 Output Total 3000 1050 Balance -2760 -250 120 Result Diagrams: 09/10/19 04:17 09/10/19 04:17 Hospitalist ROS - Medication Medications: Active Medications Generic Name Dose Route Start Last Admin Trade Name Freq PRN Reason Stop Dose Admin Acetaminophen 650 mg 09/08/19 03:52 09/11/19 09:21 Tylenol PO 650 mg Q4H PRN Administration Headache/Fever/Mild Pain (1-3) Atorvastatin Calcium 10 mg 09/08/19 21:00 09/10/19 23:13 Lipitor PO 10 mg QPM SAMSON Administration Bupropion HCl 75 mg 09/08/19 09:00 09/11/19 09:23 Wellbutrin PO 75 mg BID SAMSON Administration Enoxaparin Sodium 40 mg 09/08/19 09:00 09/11/19 09:23 Lovenox SC 40 mg 0900 SAMSON Administration Furosemide 20 mg 09/08/19 09:00 09/11/19 09:22 Lasix PO 20 mg DAILY SAMSON Administration Lisinopril 10 mg 09/09/19 21:00 09/11/19 09:24 Zestril PO 10 mg BID SAMSON Administration Oxybutynin Chloride 5 mg 09/08/19 09:00 09/11/19 09:22 Ditropan PO 5 mg TID SAMSON Administration Sertraline HCl 50 mg 09/08/19 09:00 09/11/19 09:21 Zoloft PO 50 mg DAILY SAMSON Administration Sodium Chloride 10 ml 09/07/19 23:54 09/10/19 09:30 Flush - Normal Saline IVF 10 ml PRN PRN Administration Saline Flush - Exam General Appearance: awake alert Eye: PERRL, anicteric sclera ENT: no oropharyngeal lesions, moist mucosa Neck: supple, no JVD Heart: RRR, no murmur Respiratory: no wheezes, no rales Gastrointestinal: soft, non-tender, non-distended, normal bowel sounds Extremities: no cyanosis, no edema Neurological: cranial nerve grossly intact, no focal deficits Psychiatric: A&O x 3 Hosp A/P (1) Acute encephalopathy Code(s): G93.40 - ENCEPHALOPATHY, UNSPECIFIED Status: Acute (2) HTN (hypertension) Code(s): I10 - ESSENTIAL (PRIMARY) HYPERTENSION Status: Chronic Qualifiers: Hypertension type: essential hypertension (3) Frequent falls Code(s): R29.6 - REPEATED FALLS Status: Acute (4) Physical deconditioning Code(s): R53.81 - OTHER MALAISE Status: Chronic (5) Depression Code(s): F32.9 - MAJOR DEPRESSIVE DISORDER, SINGLE EPISODE, UNSPECIFIED Status : Acute (6) Dyslipidemia Code(s): E78.5 - HYPERLIPIDEMIA, UNSPECIFIED Status: Chronic (7) Obesity Code(s): E66.9 - OBESITY, UNSPECIFIED Status: Chronic Qualifiers: Obesity classification: adult class 3 (BMI >= 40) Body mass index: BMI 40.0 -44.9 - Plan had htn urgency with ac metabolic encephalopathy, has resolved h/o freq falls, lives alone, is scared to go home has ambulated with PT needs placement if insurance approves, d/w CM continue liptor, lasix, lisinopril bid, ditropan, welbutrin and zoloft is allergic to ultram, not sure if she is allergic to aspirin, held for now hemo/neurostable
[2019-09-11] MEDS: Atorvastatin Calcium 10 MG TAB PO SCH (22:23)
[2019-09-12] MEDS: Enoxaparin Sodium 40 MG/0.4 ML SYRINGE SC SCH (09:15)
[2019-09-12] MEDS: Lisinopril 10 MG TAB PO SCH ×2 (09:16→20:23)
[2019-09-12] MEDS: buPROPion 75 MG TAB PO SCH ×2 (09:16→20:23)
[2019-09-12] MEDS: Furosemide 20 MG TAB PO SCH (09:16)
[2019-09-12] MEDS: Oxybutynin 5 MG TAB PO SCH ×3 (09:16→20:23)
--- NOTE | 2019-09-12 10:28 | PDOC.HOSPP ---
- Subjective Encounter Date: 09/12/19 Encounter Time: 10:00 Subjective: has been working with PT no new complaints feels better - Objective Vital Signs & Weight: Vital Signs (12 hours) Temp Pulse Resp BP BP Pulse Ox 09/12/19 09:16 128/87 09/12/19 07:20 98.6 F 70 18 147/69 H 94 L 09/12/19 04:00 98.9 F 82 18 119/60 97 09/12/19 00:00 99.4 F 99 18 137/63 95 Weight Admit Weight 273 lb Weight 273 lb I&O: 09/11/19 09/12/19 09/13/19 06:59 06:59 06:59 Intake Total 800 320 Output Total 1050 350 Balance -250 -30 Result Diagrams: 09/10/19 04:17 09/10/19 04:17 Hospitalist ROS - Medication Medications: Active Medications Generic Name Dose Route Start Last Admin Trade Name Freq PRN Reason Stop Dose Admin Acetaminophen 650 mg 09/08/19 03:52 09/11/19 22:23 Tylenol PO 650 mg Q4H PRN Administration Headache/Fever/Mild Pain (1-3) Atorvastatin Calcium 10 mg 09/08/19 21:00 09/11/19 22:23 Lipitor PO 10 mg QPM SAMSON Administration Bupropion HCl 75 mg 09/08/19 09:00 09/12/19 09:16 Wellbutrin PO 75 mg BID SAMSON Administration Enoxaparin Sodium 40 mg 09/08/19 09:00 09/12/19 09:15 Lovenox SC 40 mg 0900 SAMSON Administration Furosemide 20 mg 09/08/19 09:00 09/12/19 09:16 Lasix PO 20 mg DAILY SAMSON Administration Lisinopril 10 mg 09/09/19 21:00 09/12/19 09:16 Zestril PO 10 mg BID SAMSON Administration Oxybutynin Chloride 5 mg 09/08/19 09:00 09/12/19 09:16 Ditropan PO 5 mg TID SAMSON Administration Sertraline HCl 50 mg 09/08/19 09:00 09/12/19 09:16 Zoloft PO 50 mg DAILY SAMSON Administration Sodium Chloride 10 ml 09/07/19 23:54 09/10/19 09:30 Flush - Normal Saline IVF 10 ml PRN PRN Administration Saline Flush - Exam General Appearance: awake alert Eye: PERRL, anicteric sclera ENT: no oropharyngeal lesions, moist mucosa Neck: supple, no JVD Heart: RRR, no murmur Respiratory: no wheezes, no rales Gastrointestinal: soft, non-tender, non-distended, normal bowel sounds Extremities: no cyanosis, no edema Neurological: cranial nerve grossly intact, no focal deficits Psychiatric: A&O x 3 Hosp A/P (1) Acute encephalopathy Code(s): G93.40 - ENCEPHALOPATHY, UNSPECIFIED Status: Resolved (2) HTN (hypertension) Code(s): I10 - ESSENTIAL (PRIMARY) HYPERTENSION Status: Chronic Qualifiers: Hypertension type: essential hypertension (3) Frequent falls Code(s): R29.6 - REPEATED FALLS Status: Acute (4) Physical deconditioning Code(s): R53.81 - OTHER MALAISE Status: Chronic (5) Depression Code(s): F32.9 - MAJOR DEPRESSIVE DISORDER, SINGLE EPISODE, UNSPECIFIED Status : Chronic (6) Dyslipidemia Code(s): E78.5 - HYPERLIPIDEMIA, UNSPECIFIED Status: Chronic (7) Obesity Code(s): E66.9 - OBESITY, UNSPECIFIED Status: Chronic Qualifiers: Obesity classification: adult class 3 (BMI >= 40) Body mass index: BMI 40.0 -44.9 - Plan had htn urgency with ac metabolic encephalopathy, which has resolved h/o freq falls, lives alone, is scared to go home has ambulated with PT needs placement if insurance approves, d/w CM continue liptor, lasix, lisinopril bid, ditropan, welbutrin and zoloft trial of aspirin hemo/neurostable
[2019-09-12] MEDS: Acetaminophen 325 MG TAB PO PRN (20:23)
[2019-09-12] MEDS: Atorvastatin Calcium 10 MG TAB PO SCH (20:23)
[2019-09-13] MEDS: Enoxaparin Sodium 40 MG/0.4 ML SYRINGE SC SCH (10:18)
[2019-09-13] MEDS: buPROPion 75 MG TAB PO SCH ×2 (10:19→20:47)
[2019-09-13] MEDS: Aspirin Chewable 81 MG TAB PO SCH (10:19)
[2019-09-13] MEDS: Furosemide 20 MG TAB PO SCH (10:19)
[2019-09-13] MEDS: Oxybutynin 5 MG TAB PO SCH ×3 (10:19→20:47)
[2019-09-13] MEDS: Lisinopril 10 MG TAB PO SCH ×2 (10:19→20:47)
--- NOTE | 2019-09-13 20:44 | PDOC.HOSPP ---
- Subjective Encounter Date: 09/13/19 Encounter Time: 09:45 Subjective: Patient seen and examined for Encephalopathy. No new focal deficits. No new complaints. No overnight events - Objective Vital Signs & Weight: Vital Signs (12 hours) Temp Pulse Resp BP BP Pulse Ox 09/13/19 19:30 98.1 F 84 16 147/75 H 97 09/13/19 15:55 97.9 F 70 16 129/60 97 09/13/19 12:00 98.4 F 85 16 135/93 H 95 09/13/19 10:19 116/60 Weight Admit Weight 273 lb Weight 273 lb I&O: 09/12/19 09/13/19 09/14/19 06:59 06:59 06:59 Intake Total 320 840 510 Output Total 350 700 800 Balance -30 140 -290 Result Diagrams: 09/10/19 04:17 09/10/19 04:17 EKG Reviewed by me: Yes (Tele SR) Hospitalist ROS - Review of Systems Respiratory: denies: cough, dry, shortness of breath, hemoptysis, SOB with excertion, pleuritic pain, sputum, wheezing, other Cardiovascular: denies: chest pain, palpitations, orthopnea, paroxysmal noc. dyspnea, edema, light headedness, other - Medication Medications: Active Medications Generic Name Dose Route Start Last Admin Trade Name Freq PRN Reason Stop Dose Admin Acetaminophen 650 mg 09/08/19 03:52 09/12/19 20:23 Tylenol PO 650 mg Q4H PRN Administration Headache/Fever/Mild Pain (1-3) Aspirin 81 mg 09/13/19 09:00 09/13/19 10:19 Aspirin Chewable PO 81 mg DAILY SAMSON Administration Atorvastatin Calcium 10 mg 09/08/19 21:00 09/12/19 20:23 Lipitor PO 10 mg QPM SAMSON Administration Bupropion HCl 75 mg 09/08/19 09:00 09/13/19 10:19 Wellbutrin PO 75 mg BID SAMSON Administration Enoxaparin Sodium 40 mg 09/08/19 09:00 09/13/19 10:18 Lovenox SC 40 mg 0900 SAMSON Administration Furosemide 20 mg 09/08/19 09:00 09/13/19 10:19 Lasix PO 20 mg DAILY SAMSON Administration Lisinopril 10 mg 09/09/19 21:00 09/13/19 10:19 Zestril PO 10 mg BID SAMSON Administration Oxybutynin Chloride 5 mg 09/08/19 09:00 09/13/19 15:35 Ditropan PO 5 mg TID SAMSON Administration Sertraline HCl 50 mg 09/08/19 09:00 09/13/19 10:19 Zoloft PO 50 mg DAILY SAMSON Administration Sodium Chloride 10 ml 09/07/19 23:54 09/10/19 09:30 Flush - Normal Saline IVF 10 ml PRN PRN Administration Saline Flush - Exam General Appearance: NAD Heart: RRR, no gallops, no rubs Respiratory: no wheezes, no rales Gastrointestinal: non-tender, non-distended Extremities: no clubbing Neurological: no new deficit Hosp A/P - Plan DVT proph w/SCDs Gen weakness/recurrent falls Encephalopathy - multifactorial (POA) - resolved Morbid obesity BMI 44.1 SSS s/p bradycardia HTN CKD 2 PLAN: Cont ASA and other meds as above Stable to discharge Cont PT/OT Await insurance auth for placement
[2019-09-13] MEDS: Atorvastatin Calcium 10 MG TAB PO SCH (20:47)
[2019-09-13] MEDS: Acetaminophen 325 MG TAB PO PRN (20:48)
[2019-09-14] MEDS: Oxybutynin 5 MG TAB PO SCH ×3 (09:05→21:41)
[2019-09-14] MEDS: buPROPion 75 MG TAB PO SCH ×2 (09:05→21:41)
[2019-09-14] MEDS: Furosemide 20 MG TAB PO SCH (09:05)
[2019-09-14] MEDS: Aspirin Chewable 81 MG TAB PO SCH (09:05)
[2019-09-14] MEDS: Lisinopril 10 MG TAB PO SCH ×2 (09:06→21:41)
[2019-09-14] MEDS: Enoxaparin Sodium 40 MG/0.4 ML SYRINGE SC SCH (09:07)
[2019-09-14] MEDS: Atorvastatin Calcium 10 MG TAB PO SCH (21:41)
[2019-09-14] MEDS: Acetaminophen 325 MG TAB PO PRN (21:41)
--- NOTE | 2019-09-14 22:20 | PDOC.HOSPP ---
- Subjective Encounter Date: 09/14/19 Encounter Time: 11:30 Subjective: Patient seen and examined for Gen weakness. Mentation at baseline. No new complaints. No overnight events - Objective Vital Signs & Weight: Vital Signs (12 hours) Temp Pulse Resp BP Pulse Ox 09/14/19 21:41 148/67 H 09/14/19 20:00 98.0 F 73 16 93 L 09/14/19 15:29 98.4 F 69 16 132/72 96 09/14/19 11:27 98.4 F 85 16 143/68 H 96 Weight Admit Weight 273 lb Weight 273 lb I&O: 09/13/19 09/14/19 09/15/19 06:59 06:59 06:59 Intake Total 840 750 760 Output Total 616 206 0646 Balance 140 -50 -690 Result Diagrams: 09/10/19 04:17 09/10/19 04:17 EKG Reviewed by me: Yes (Tele SR) Hospitalist ROS - Review of Systems Cardiovascular: denies: chest pain, palpitations, orthopnea, paroxysmal noc. dyspnea, edema, light headedness, other Gastrointestinal: denies: nausea, vomiting, abdominal pain, diarrhea, constipation, melena, hematochezia, other - Medication Medications: Active Medications Generic Name Dose Route Start Last Admin Trade Name Freq PRN Reason Stop Dose Admin Acetaminophen 650 mg 09/08/19 03:52 09/14/19 21:41 Tylenol PO 650 mg Q4H PRN Administration Headache/Fever/Mild Pain (1-3) Aspirin 81 mg 09/13/19 09:00 09/14/19 09:05 Aspirin Chewable PO 81 mg DAILY SAMSON Administration Atorvastatin Calcium 10 mg 09/08/19 21:00 09/14/19 21:41 Lipitor PO 10 mg QPM SAMSON Administration Bupropion HCl 75 mg 09/08/19 09:00 09/14/19 21:41 Wellbutrin PO 75 mg BID SAMSON Administration Enoxaparin Sodium 40 mg 09/08/19 09:00 09/14/19 09:07 Lovenox SC 40 mg 0900 SAMSON Administration Furosemide 20 mg 09/08/19 09:00 09/14/19 09:05 Lasix PO 20 mg DAILY SAMSON Administration Lisinopril 10 mg 09/09/19 21:00 09/14/19 21:41 Zestril PO 10 mg BID SAMSON Administration Oxybutynin Chloride 5 mg 09/08/19 09:00 09/14/19 21:41 Ditropan PO 5 mg TID SAMSON Administration Sertraline HCl 50 mg 09/08/19 09:00 09/14/19 09:06 Zoloft PO 50 mg DAILY SAMSON Administration Sodium Chloride 10 ml 09/07/19 23:54 09/10/19 09:30 Flush - Normal Saline IVF 10 ml PRN PRN Administration Saline Flush - Exam General Appearance: NAD Neck: supple, no JVD Heart: no gallops, no rubs Respiratory: no wheezes, no rales Gastrointestinal: soft, non-tender, normal bowel sounds Extremities: no cyanosis Hosp A/P - Plan DVT proph w/SCDs Gen weakness/recurrent falls Encephalopathy - multifactorial (POA) - resolved Morbid obesity BMI 44.1 SSS s/p bradycardia HTN CKD 2 PLAN: Cont current meds as above Stable to discharge - Await placement Cont PT/OT
[2019-09-15] MEDS: Enoxaparin Sodium 40 MG/0.4 ML SYRINGE SC SCH (09:08)
[2019-09-15] MEDS: Acetaminophen 325 MG TAB PO PRN (09:08)
[2019-09-15] MEDS: Aspirin Chewable 81 MG TAB PO SCH (09:08)
[2019-09-15] MEDS: Furosemide 20 MG TAB PO SCH (09:08)
[2019-09-15] MEDS: Lisinopril 10 MG TAB PO SCH (09:08)
[2019-09-15] MEDS: buPROPion 75 MG TAB PO SCH (09:08)
[2019-09-15] MEDS: Oxybutynin 5 MG TAB PO SCH (09:08)
[2019-09-15 11:53] VITALS: TEMP 98.5
[2019-09-15 11:59] VITALS: BP 116/57
--- NOTE | 2019-09-15 15:28 | DIS ---
DATE OF ADMISSION: 09/07/2019 DATE OF DISCHARGE: 09/15/2019 DISCHARGE DISPOSITION: To custodial facility. FOLLOWUP: Follow up with Dr. Luis A Clark in 1 week. ALLERGIES: THE PATIENT IS ALLERGIC TO MORPHINE AND TRAMADOL. CODE STATUS: Do not resuscitate. DISCHARGE MEDICATIONS: 1. Aspirin 81 mg daily. 2. Wellbutrin 75 mg b.i.d. 3. Lisinopril 10 mg b.i.d. 4. Zoloft 50 mg daily. 5. Pravastatin 40 mg q.p.m. 6. Oxybutynin 5 mg 3 times a day. 7. Lasix 20 mg daily. INPATIENT CONSULTANTS: None. The patient was seen and examined on the day of discharge. Denies any new complaints. No chest pain, shortness of breath, or palpitations reported. BRIEF HOSPITAL COURSE: The patient is an 84-year-old female with morbid obesity, hypertension, recent UTI, currently residing at [facility], presented to the emergency room with altered mentation along with generalized weakness. She was monitored in the stroke unit. Her mentation gradually improved. Her workup was negative for infectious etiology. CT scan of the brain remained negative. It showed chronic small-vessel ischemic white matter changes. Due to progressive weakness, she will be discharged to custodial facility. Please note that there was a delay in the discharge due to insurance authorization. FINAL DIAGNOSES: 1. Generalized weakness with recurrent falls. 2. Encephalopathy, multifactorial, resolved. 3. Morbid obesity with a body mass index of 44.1. 4. Hypertension. 5. Chronic kidney disease, stage 2. 6. Degenerative joint disease. 7. History of overactive bladder. 8. Recent urinary tract infection. 9. Sick sinus syndrome, status post pacemaker. Plan of care was discussed with the patient in detail. She stated understanding. Job ID: [id number]
--- NOTE | 2019-09-16 10:18 | EKG ---
Test Reason : Blood Pressure : / mmHG Vent. Rate : 060 BPM Atrial Rate : 060 BPM P-R Int : 158 ms QRS Dur : 090 ms QT Int : 434 ms P-R-T Axes : 000 -53 -28 degrees QTc Int : 434 ms Electronic atrial pacemaker Left anterior fascicular block Septal infarct , age undetermined Abnormal ECG Confirmed by CARLA MCCRAY MD [id number]), editor & co founder AGUS VERDUZCO ([id number]) on 09/16/2019 10:18:17 AM Referred By: Confirmed By:CARLA MCCRAY MD
== END 2019-09-15 12:03 ==
LOC: ERS 17:39 → 2SE 23:53
PROVIDERS: ADMIT Hospitalist; ATTEND Hospitalist
DX: G93.40 Encephalopathy, unspecified (principal); R53.1 Weakness; R29.6 Repeated falls; E66.01 Morbid (severe) obesity due to excess calories; I12.9 Hypertensive chronic kidney disease with stage 1 through stage 4 chronic kidney disease, or unspecified chronic kidney disease; N18.2 Chronic kidney disease, stage 2 (mild); I16.0 Hypertensive urgency; R53.81 Other malaise; M19.90 Unspecified osteoarthritis, unspecified site; I49.5 Sick sinus syndrome; Z68.42 Body mass index [BMI] 45.0-49.9, adult; Z79.899 Other long term (current) drug therapy; Z88.5 Allergy status to narcotic agent; Z86.73 Personal history of transient ischemic attack (TIA), and cerebral infarction without residual deficits; Z95.0 Presence of cardiac pacemaker; Z66 Do not resuscitate
CPT/HCPCS: 51701; 70450 ×2; 80048 ×2; 80053; 81003; 82607; 82746; 83735; 84484; 85025 ×3; 87086; 87804 ×2; 93005; 96360; 96361; 96372 ×8; 97110 ×5; 97116 ×7; 97139 ×7; 97530; 97535 ×2; 99285; G0378 ×10; 36415; A4353; J1650

== ENCOUNTER 2020-10-29 07:42 | Inpatient (IN) | payer MEDICARE, MEDICAID ==
--- NOTE | 2020-10-29 08:12 | CT ---
Head CT without contrast 10/29/2020: COMPARISON: 09/10/2019 HISTORY: Left-sided weakness with slurred speech TECHNIQUE: Axial CT imaging at 5 mm intervals from vertex through skull base without contrast FINDINGS: The visualized paranasal sinuses and mastoid air cells are well aerated. There is no displaced calvarial fracture. No intracranial hemorrhage, midline shift, or mass effect. There is atherosclerotic calcification of the cavernous carotid arteries. There is extensive periventricular, deep, and subcortical white matter hypodensity, evidence of signi ficant small vessel disease. Stable diffuse cerebral volume loss. IMPRESSION: Stable head CT. No intracranial hemorrhage. If there is clinical concern for acute infarc tion, brain MRI recommended.
[2020-10-29 09:51] LABS: Bilirubin Negative (Negative); Blood, Urine Negative (Negative); Clarity Clear (Clear); Glucose, Urine (Dipstick) Normal (Negative); Ketone, Urine Negative (Negative); Leukocyte Negative Leu/uL (Negative); Nitrite Negative (Negative); Protein, Urine (Dipstick) Negative (Neg-Trace); Specific Gravity, Urine 1.013 (1.002-1.036); Urobilinogen Normal mg/dL (Less than 2)
[2020-10-29 10:05] LABS: #Basophils 0.1 thou/uL (0.0-0.2); #Eosinphils 0.2 thou/uL (0.0-0.7); #Monocytes 0.6 thou/uL (0.11-0.59); #Neutrophils 5.3 thou/uL (1.40-6.50); %Basophils 0.9 % (0.0-1.0); %Eosinophils 2.9 % (0.0-10.0); %Lymphocytes 14.2 % (21.0-51.0); %Monocytes 7.9 % (0.0-10.0); %Neutrophils 74.1 % (42.0-75.0); Hemoglobin 13.3 g/dL (12.0-16.0); Mean Corpuscular HGB CONC 32.4 g/dL (32.0-36.0); Mean Corpuscular Hemoglobin 28.1 pg (27.0-31.0); Mean Corpuscular Volume 86.7 fL (78.0-98.0); Mean Platelet Volume 7.8 fL (7.4-10.4); Platelet Count 182 thou/uL (130-400); RBC Distribution Width 13.1 % (11.5-14.5); Red Blood Cell (RBC) Count 4.75 mill/uL (4.20-5.40); White Blood Cell (WBC) Count 7.1 thou/uL (4.8-10.8)
[2020-10-29 10:24] LABS: ALT (SGPT) 27 U/L (8-55); AST (SGOT) 29 U/L (5-34); Albumin 3.6 g/dL (3.4-4.8); Alkaline Phosphatase 79 U/L (40-110); Anion Gap 10 mmol/L (10-20); BUN (Urea Nitrogen) 21 mg/dL (9.8-20.1); Bilirubin, Total 0.3 mg/dL (0.2-1.2); Calc. Creatinine Clearance 0 mL/min (70-130); Calcium 8.9 mg/dL (7.8-10.44); Carbon Dioxide 29 mmol/L (23-31); Chloride 106 mmol/L (98-107); Globulin 3.5 g/dL (2.4-3.5); Glucose 89 mg/dL (83-110); Potassium 3.9 mmol/L (3.5-5.1); Protein, Total 7.1 g/dL (5.8-8.1); Sodium 141 mmol/L (136-145)
[2020-10-29] MEDS ORDERED: Aspirin Chewable 81 MG TAB ONE (10:51)
[2020-10-29] MEDS ORDERED: Lorazepam 1 MG TAB ONE (10:52)
[2020-10-29 11:11] LABS: PTT 33.3 sec (22.9-36.1); Prothrombin Time 13.6 sec (12.0-14.7)
--- NOTE | 2020-10-29 11:29 | PDOC.HHP ---
Hospitalist HPI Confusion History of Present Illness: Ms. Severino is an 85-year-old female with past medical history of dementia ANO x2 at baseline, arthritis, hypertension, hyperlipidemia, permanent pacemaker secondary to symptomatic bradycardia who presents from residential for slurred speech and left upper extremity weakness. Patient home reports the patient was last seen normal yesterday evening. They noticed a worsening of her baseline dementia and slurred speech. On presentation to the emergency room patient appears to be at her baseline mental status. EMS reported the patient was unable to move her left arm but patient reports that this is secondary to arthritis. She denies any chest pain, shortness of breath, abdominal pain. Review of systems limited by patient's mental status. Patient confused during interview. She is able to tell me her name and that she is at the hospital but not the year or what she is here for. In emergency room initial vital signs 165/88, 60, 18, 97.7, 107 room air. EKG shows a paced rhythm with no ischemic changes. Troponin 0.01. H/H 13.3/41.2, WBC 7.1. BUN/CR 21/0.91, sodium 141, potassium 3.9. CT brain no acute findings but did show diffuse volume loss. Patient received aspirin in the emergency room. Allergies/Adverse Reactions: Allergy/AdvReac Type Severity Reaction Status Date / Time morphine AdvReac itch Verified 11/20/19 07:28 tramadol AdvReac Verified 11/20/19 07:28 Home Medications: Medication Instructions Recorded Confirmed Type Oxybutynin [Ditropan] 5 mg PO TID 06/12/13 09/08/19 History Furosemide [Lasix] 20 mg PO DAILY 05/31/19 09/08/19 History Pravastatin Sodium [Pravachol] 40 mg PO QPM 05/31/19 09/08/19 History buPROPion [Wellbutrin] 75 mg PO BID tab 06/06/19 09/08/19 Rx Sertraline HCl [Zoloft] 50 mg PO DAILY 09/08/19 09/08/19 History Acetaminophen [Tylenol Regular 650 mg PO Q4H PRN tab 09/15/19 Rx Strength] Aspirin Chewable [Aspirin Chewable 81 mg PO DAILY tab 09/15/19 Rx Tablet] Lisinopril [Zestril] 10 mg PO BID tab 09/15/19 Rx Past History: PAST MEDICAL HISTORY: Morbid obesity, hypertension, osteoarthritis, overactive bladder, recent urinary tract infection, permanent pacemaker for symptomatic b radycardia, CVA 2019. PAST SURGICAL HISTORY: Permanent pacemaker implantation, knee surgery. SOCIAL HISTORY: Resident of [facility]. Baseline A&O x2. ALLERGIES: Tramadol, morphine. HOME MEDICATIONS: Home medication will be reviewed as per admission medication reconciliation. FAMILY HISTORY: Documented for longevity in patient's parents. Hospitalist HPI ROS ROS unobtainable: due to mental status Constitutional: denies: fever Eyes: denies: pain, vision change Respiratory: denies: shortness of breath Cardiovascular: denies: chest pain, palpitations Gastrointestinal: denies: nausea, vomiting, abdominal pain Genitourinary: denies: dysuria Neurological: reports: weakness, change in speech, confusion. denies: numbness Hospitalist Exam General Appearance: NAD General - other findings: A&Ox2 Eye: PERRL, anicteric sclera ENT: normocephalic atraumatic, no oropharyngeal lesions, moist mucosa Neck: supple, symmetric, no JVD, no thyromegaly, no lymphadenopathy, no carotid bruit Heart: RRR, no murmur, no gallops, no rubs, normal peripheral pulses Respiratory: CTAB, no wheezes, no rales, no ronchi, normal chest expansion, no tachypnea, normal percussion Gastrointestinal: soft, non-tender, non-distended, normal bowel sounds, no palpable masses, no hepatomegaly, no splenomegaly, no bruit Extremities: no cyanosis, no clubbing, no edema Skin: normal turgor, no lesions, no rashes Neurological: cranial nerve grossly intact, normal sensation to touch, no weakness, no focal deficits, no new deficit Neurological - other findings: Unable to assess cerebellar function patient confused during exam Musculoskeletal: normal tone, normal strength, no muscle wasting Psychiatric: normal affect, normal behavior, A&O x 3 Hospitalist Results Result Diagrams: 10/29/20 09:53 10/29/20 09:53 Lab results: Laboratory Last Values WBC 7.1 thou/uL (4.8-10.8) 10/29/20 09:53 RBC 4.75 mill/uL (4.20-5.40) 10/29/20 09:53 Hgb 13.3 g/dL (12.0-16.0) 10/29/20 09:53 Hct 41.2 % (36.0-47.0) 10/29/20 09:53 MCV 86.7 fL (78.0-98.0) 10/29/20 09:53 MCH 28.1 pg (27.0-31.0) 10/29/20 09:53 MCHC 32.4 g/dL (32.0-36.0) 10/29/20 09:53 RDW 13.1 % (11.5-14.5) 10/29/20 09:53 Plt Count 182 thou/uL (130-400) 10/29/20 09:53 MPV 7.8 fL (7.4-10.4) 10/29/20 09:53 Neutrophils % 74.1 % (42.0-75.0) 10/29/20 09:53 Lymphocytes % 14.2 % (21.0-51.0) L 10/29/20 09:53 Monocytes % 7.9 % (0.0-10.0) 10/29/20 09:53 Eosinophils % 2.9 % (0.0-10.0) 10/29/20 09:53 Basophils % 0.9 % (0.0-1.0) 10/29/20 09:53 Neutrophils # 5.3 thou/uL (1.40-6.50) 10/29/20 09:53 Lymphocytes # 1.0 thou/uL (1.20-3.40) L 10/29/20 09:53 Monocytes # 0.6 thou/uL (0.11-0.59) H 10/29/20 09:53 Eosinophils # 0.2 thou/uL (0.0-0.7) 10/29/20 09:53 Basophils # 0.1 thou/uL (0.0-0.2) 10/29/20 09:53 PT 13.6 sec (12.0-14.7) 10/29/20 09:49 INR 1.0 10/29/20 09:49 APTT 33.3 sec (22.9-36.1) 10/29/20 09:49 Sodium 141 mmol/L (136-145) 10/29/20 09:53 Potassium 3.9 mmol/L (3.5-5.1) 10/29/20 09:53 Chloride 106 mmol/L (98-107) 10/29/20 09:53 Carbon Dioxide 29 mmol/L (23-31) 10/29/20 09:53 Anion Gap 10 mmol/L (10-20) 10/29/20 09:53 BUN 21 mg/dL (9.8-20.1) H 10/29/20 09:53 Creatinine 0.91 mg/dL (0.6-1.1) 10/29/20 09:53 Estimated GFR (MDRD) 71 10/29/20 09:53 Glucose 89 mg/dL (83-110) 10/29/20 09:53 Calcium 8.9 mg/dL (7.8-10.44) 10/29/20 09:53 Total Bilirubin 0.3 mg/dL (0.2-1.2) 10/29/20 09:53 AST 29 U/L (5-34) 10/29/20 09:53 ALT 27 U/L (8-55) 10/29/20 09:53 Alkaline Phosphatase 79 U/L (40-110) 10/29/20 09:53 Troponin I Less than 0.010 ng/mL (< 0.028) 10/29/20 09:53 Serum Total Protein 7.1 g/dL (5.8-8.1) 10/29/20 09:53 Albumin 3.6 g/dL (3.4-4.8) 10/29/20 09:53 Globulin 3.5 g/dL (2.4-3.5) 10/29/20 09:53 Albumin/Globulin Ratio 1.0 g/dL (1.2-2.2) L 10/29/20 09:53 Urine Color Light-Yellow (Yellow) 10/29/20 09:35 Urine Clarity Clear (Clear) 10/29/20 09:35 Urine pH 7.0 (5.0-9.0) 10/29/20 09:35 Ur Specific [place] 1.013 (1.002-1.036) 10/29/20 09:35 Urine Protein Negative mg/dL (Neg-Trace) 10/29/20 09:35 Urine Glucose (UA) Normal mg/dL (Negative) 10/29/20 09:35 Urine Ketones Negative mg/dL (Negative) 10/29/20 09:35 Urine Blood Negative (Negative) 10/29/20 09:35 Urine Nitrite Negative (Negative) 10/29/20 09:35 Urine Bilirubin Negative (Negative) 10/29/20 09:35 Urine Urobilinogen Normal mg/dL (Less than 2) 10/29/20 09:35 Ur Leukocyte Esterase Negative Meron/uL (Negative) 10/29/20 09:35 Hospitalist H&P A/P Plan: TIA 85-year-old female with acute onset of slurred speech and left upper extremity weakness. Brought in from residential last seen normal evening prior to admission. Patient now back to her baseline mental status of alert and oriented x2. Able to tell me her name and that she is in the hospital unaware of the year or why she is here. CT brain no acute findings but did show diffuse volume loss. No signs of infectious process at this time. Will admit for TIA rule out. Plan q4h neurochecks PT/OT/speech consult MRI brain, carotid doppler Hemoglobin A1c, lipid panel Aspirin, statin Neurology consult Hypertension Hold in setting of permissive hypertension. Hyperlipidemia We will place on atorvastatin 40 mg Dementia Patient with baseline dementia. Resides at residential. Baseline A&O x2. We will continue reorienting measures. Neuropathy Hold home gabapentin in setting of AMS. 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 Will send for pacemaker interrogation. DVT prophylaxisLovenox DNR Case discussed with attending physician Dr. Ocampo.
[2020-10-29] MEDS ORDERED: hydrALAZINE 20 MG/ML VIAL SLOW IVP PRN (11:42)
[2020-10-29] MEDS ORDERED: Acetaminophen 650 MG Suppository PR PRN (11:42)
[2020-10-29 12:41] LABS: Hemoglobin A1c 5.4 % (4.0-6.0)
--- NOTE | 2020-10-29 14:35 | CON ---
NEUROLOGY CONSULTATION DATE OF CONSULTATION: 10/29/2020 REASON FOR CONSULTATION: Altered mental status. HISTORY OF PRESENT ILLNESS: Ms. Severino is an 85-year-old female with medical history significant for dementia, who is alert and oriented x2 at baseline, arthritis, hyperlipidemia, hypertension, status post pacemaker due to symptomatic bradycardia, [facility] of slurred speech and left upper extremity weakness. Per jail staff, she was last seen normal around yesterday evening and then she had worsening of her dementia and slurred speech with weakness of the right upper extremity. The patient is a poor historian and unable to provide the history, so history is obtained from review of the medical records and also by talking to the primary provider. In the emergency room, head CT was done, which did not reveal any acute intracranial pathology. Allergies/Adverse Reactions: Allergy/AdvReac Type Severity Reaction Status Date / Time morphine AdvReac itch Verified 11/20/19 07:28 tramadol AdvReac Verified 11/20/19 07:28 Home Medications: Medication Instructions Recorded Confirmed Type Oxybutynin [Ditropan] 5 mg PO TID 06/12/13 09/08/19 History Furosemide [Lasix] 20 mg PO DAILY 05/31/19 09/08/19 History Pravastatin Sodium [Pravachol] 40 mg PO QPM 05/31/19 09/08/19 History buPROPion [Wellbutrin] 75 mg PO BID tab 06/06/19 09/08/19 Rx Sertraline HCl [Zoloft] 50 mg PO DAILY 09/08/19 09/08/19 History Acetaminophen [Tylenol Regular 650 mg PO Q4H PRN tab 09/15/19 Rx Strength] Aspirin Chewable [Aspirin Chewable 81 mg PO DAILY tab 09/15/19 Rx Tablet] Lisinopril [Zestril] 10 mg PO BID tab 09/15/19 Rx PAST MEDICAL HISTORY: 1. Morbid obesity. 2. Hypertension. 3. Osteoarthritis. 4. Overactive bladder. 5. Recent history of urinary tract infection. 6. Bradycardia. 7. CVA in 2019. PAST SURGICAL HISTORY: 1. Status post permanent pacemaker implantation. 2. Knee surgery. SOCIAL HISTORY: The patient is a resident of [facility]. ALLERGIES: TRAMADOL AND MORPHINE. FAMILY HISTORY: No significant family history. REVIEW OF SYSTEMS: Unobtainable due to the patient's mental status. PHYSICAL EXAMINATION vital signs are blood pressure 165/88, pulse 60, 18 General - other findings: A&Ox2 Eye: PERRL, anicteric sclera ENT: normocephalic atraumatic, no oropharyngeal lesions, moist mucosa Neck: supple, symmetric, no JVD, no thyromegaly, no lymphadenopathy, no carotid bruit Heart: RRR, no murmur, no gallops, no rubs, normal peripheral pulses Respiratory: CTAB, no wheezes, no rales, no ronchi, normal chest expansion, no tachypnea, normal percussion Gastrointestinal: soft, non-tender, non-distended, normal bowel sounds, no palpable masses, no hepatomegaly, no splenomegaly, no bruit Extremities: no cyanosis, no clubbing, no edema Skin: normal turgor, no lesions, no rashes Neurological: cranial nerve grossly intact, normal sensation to touch, no weakness, no focal deficits, no new deficit Neurological Mental status, the patient is alert and oriented to person and place. She is not oriented to time or year. Cranial nerves 2 through 12 intact. Motor, muscle tone and bulk are normal. Moving all 4 extremities except right upper extremity, 3/5. Sensory intact. Cerebellar, finger-nose testing intact on the left, slow on the right secondary to weakness. Gait deferred due to the patient's safety reasons. DATA REVIEWED: I reviewed the head CT, which was negative for acute intracranial pathology. Labs were essentially unremarkable. WBC 7.1 thou/uL (4.8-10.8) 10/29/20 09:53 RBC 4.75 mill/uL (4.20-5.40) 10/29/20 09:53 Hgb 13.3 g/dL (12.0-16.0) 10/29/20 09:53 Hct 41.2 % (36.0-47.0) 10/29/20 09:53 MCV 86.7 fL (78.0-98.0) 10/29/20 09:53 MCH 28.1 pg (27.0-31.0) 10/29/20 09:53 MCHC 32.4 g/dL (32.0-36.0) 10/29/20 09:53 RDW 13.1 % (11.5-14.5) 10/29/20 09:53 Plt Count 182 thou/uL (130-400) 10/29/20 09:53 MPV 7.8 fL (7.4-10.4) 10/29/20 09:53 Neutrophils % 74.1 % (42.0-75.0) 10/29/20 09:53 Lymphocytes % 14.2 % (21.0-51.0) L 10/29/20 09:53 Monocytes % 7.9 % (0.0-10.0) 10/29/20 09:53 Eosinophils % 2.9 % (0.0-10.0) 10/29/20 09:53 Basophils % 0.9 % (0.0-1.0) 10/29/20 09:53 Neutrophils # 5.3 thou/uL (1.40-6.50) 10/29/20 09:53 Lymphocytes # 1.0 thou/uL (1.20-3.40) L 10/29/20 09:53 Monocytes # 0.6 thou/uL (0.11-0.59) H 10/29/20 09:53 Eosinophils # 0.2 thou/uL (0.0-0.7) 10/29/20 09:53 Basophils # 0.1 thou/uL (0.0-0.2) 10/29/20 09:53 PT 13.6 sec (12.0-14.7) 10/29/20 09:49 INR 1.0 10/29/20 09:49 APTT 33.3 sec (22.9-36.1) 10/29/20 09:49 Sodium 141 mmol/L (136-145) 10/29/20 09:53 Potassium 3.9 mmol/L (3.5-5.1) 10/29/20 09:53 Chloride 106 mmol/L (98-107) 10/29/20 09:53 Carbon Dioxide 29 mmol/L (23-31) 10/29/20 09:53 Anion Gap 10 mmol/L (10-20) 10/29/20 09:53 BUN 21 mg/dL (9.8-20.1) H 10/29/20 09:53 Creatinine 0.91 mg/dL (0.6-1.1) 10/29/20 09:53 Estimated GFR (MDRD) 71 10/29/20 09:53 Glucose 89 mg/dL (83-110) 10/29/20 09:53 Calcium 8.9 mg/dL (7.8-10.44) 10/29/20 09:53 Total Bilirubin 0.3 mg/dL (0.2-1.2) 10/29/20 09:53 AST 29 U/L (5-34) 10/29/20 09:53 ALT 27 U/L (8-55) 10/29/20 09:53 Alkaline Phosphatase 79 U/L (40-110) 10/29/20 09:53 Troponin I Less than 0.010 ng/mL (< 0.028) 10/29/20 09:53 Serum Total Protein 7.1 g/dL (5.8-8.1) 10/29/20 09:53 Albumin 3.6 g/dL (3.4-4.8) 10/29/20 09:53 Globulin 3.5 g/dL (2.4-3.5) 10/29/20 09:53 Albumin/Globulin Ratio 1.0 g/dL (1.2-2.2) L 10/29/20 09:53 Urine Color Light-Yellow (Yellow) 10/29/20 09:35 Urine Clarity Clear (Clear) 10/29/20 09:35 Urine pH 7.0 (5.0-9.0) 10/29/20 09:35 Ur Specific [place] 1.013 (1.002-1.036) 10/29/20 09:35 Urine Protein Negative mg/dL (Neg-Trace) 10/29/20 09:35 Urine Glucose (UA) Normal mg/dL (Negative) 10/29/20 09:35 Urine Ketones Negative mg/dL (Negative) 10/29/20 09:35 Urine Blood Negative (Negative) 10/29/20 09:35 Urine Nitrite Negative (Negative) 10/29/20 09:35 Urine Bilirubin Negative (Negative) 10/29/20 09:35 Urine Urobilinogen Normal mg/dL (Less than 2) 10/29/20 09:35 Ur Leukocyte Esterase Negative Meron/uL (Negative) 10/29/20 09:35 ASSESSMENT AND PLAN: Ms. Juni Severino is an 85-year-old female, who presented with acute onset of slurred speech and left upper extremity weakness. TIA versus CVA. She was last seen normal yesterday evening. Currently, the patient is back to her baseline in terms of mental status and she does have dementia, so unable to provide the history. Consider MRI of the brain to rule out acute intracranial pathology if compatible with pacemaker. Carotid Dopplers to rule out hemodynamically significant stenosis. EEG to evaluate for underlying cortical irritability. Continue aspirin and high-intensity statin for secondary stroke prevention. 2D echo to evaluate for left ventricular ejection fraction. Neuro checks every 4 hours. Telemetry to rule out arrhythmias. PT/OT/Speech. Continue medical management per primary team. Plan discussed in detail with the primary attending, Zenaida Pascual PA-C. We will continue to follow. Thank you for the consult. Job ID: [id number] JAMES
--- NOTE | 2020-10-29 16:15 | ULT ---
BILATERAL CAROTID DUPLEX ULTRASOUND: HISTORY: Transient ischemic attack TECHNIQUE: Grayscale, color-flow and spectral Doppler ultrasound imaging of the extracranial carotid artery syst ems and vertebral arteries was performed bilaterally. FINDINGS: No large amount of echogenic plaque is seen involving the common carotid or internal carotid arteries . The peak systolic velocity in the right ICA measures 56.9 cm/s. The peak systolic velocity in the ri ght CCA measures 69.9 cm/s. The peak systolic velocity in the left ICA measures 54.7 cm/s. The peak systolic velocity in the l eft CCA measures 50.3 cm/s. The right IC/CC ration is0.8. The left IC/CC ratio is 1.1. Vertebral flow: antegrade, bilaterally. . IMPRESSION: No hemodynamically significant stenosis of of the left or right cervical carotid artery
[2020-10-29] MEDS: Acetaminophen 325 MG TAB PO PRN (16:53)
[2020-10-29 18:29] VITALS: BMI 35.8
[2020-10-29] MEDS: Atorvastatin Calcium 40 MG TAB PO SCH (20:54)
[2020-10-30 01:57] LABS: SARS-CoV-2 PCR by NAA Not Detected (NotDetected)
[2020-10-30 05:30] LABS: #Eosinphils 0.2 thou/uL (0.0-0.7); #Lymphocytes 1.3 thou/uL (1.20-3.40); #Monocytes 0.5 thou/uL (0.11-0.59); #Neutrophils 3.4 thou/uL (1.40-6.50); %Basophils 0.3 % (0.0-1.0); %Eosinophils 4.1 % (0.0-10.0); %Neutrophils 62.6 % (42.0-75.0); Hemoglobin 12.6 g/dL (12.0-16.0); Mean Corpuscular HGB CONC 30.9 g/dL (32.0-36.0); Mean Corpuscular Hemoglobin 27.6 pg (27.0-31.0); Mean Corpuscular Volume 89.1 fL (78.0-98.0); Mean Platelet Volume 7.5 fL (7.4-10.4); Platelet Count 180 thou/uL (130-400); RBC Distribution Width 12.9 % (11.5-14.5); Red Blood Cell (RBC) Count 4.58 mill/uL (4.20-5.40); White Blood Cell (WBC) Count 5.4 thou/uL (4.8-10.8)
[2020-10-30 05:50] LABS: Anion Gap 10 mmol/L (10-20); BUN (Urea Nitrogen) 16 mg/dL (9.8-20.1); Calc. Creatinine Clearance 84 mL/min (70-130); Calcium 8.8 mg/dL (7.8-10.44); Carbon Dioxide 26 mmol/L (23-31); Cardiac Risk 2.6 (Less than 4.5); Chloride 108 mmol/L (98-107); Cholesterol 129 mg/dl (< 200 Desired); Glucose 95 mg/dL (83-110); HDL Cholesterol 50 mg/dL (>60 Neg Risk); LDL Cholesterol, Calculated 65 mg/dL; Potassium 3.8 mmol/L (3.5-5.1); Sodium 140 mmol/L (136-145); Triglycerides 72 mg/dL (Less than 150)
[2020-10-30] MEDS ORDERED: Baclofen 10 MG TAB PO PRN (07:25)
[2020-10-30] MEDS ORDERED: Acetaminophen/Codeine 30-300mg Tablet PO PRN (07:25)
--- NOTE | 2020-10-30 07:25 | PDOC.HOSPP ---
- Subjective Encounter Date: 10/30/20 Encounter Time: 11:30 Subjective: Patient reports some continued chronic pain in her left shoulder causing left arm weakness. She is somewhat confused. This is likely her baseline. No events overnight. Awaiting EEG and MRI. - Objective Vital Signs & Weight: Vital Signs (12 hours) Temp Pulse Resp BP BP Pulse Ox 10/30/20 04:00 97.8 F 59 L 19 148/69 H 97 10/29/20 20:00 97.8 F 59 L 16 137/78 96 Weight Weight 221 lb 12.8 oz Result Diagrams: 10/30/20 05:17 10/30/20 05:17 Hospitalist ROS - Review of Systems Constitutional: denies: fever, chills, weakness Respiratory: denies: cough, shortness of breath Cardiovascular: denies: chest pain, palpitations Gastrointestinal: denies: nausea, vomiting, abdominal pain - Medication Medications: Active Medications Generic Name Dose Route Start Last Admin Trade Name Freq PRN Reason Stop Dose Admin Acetaminophen 650 mg 10/29/20 11:42 10/29/20 16:53 Acetaminophen 325 Mg Tab PO 650 mg Q4H PRN Administration Headache/Fever/Mild Pain (1-3) Atorvastatin Calcium 40 mg 10/29/20 21:00 10/29/20 20:54 Atorvastatin Calcium 40 Mg Tab PO 40 mg HS SAMSON Administration Hospitalist Exam Vitals: Vital Signs (12 hours) Temp Pulse Resp BP BP Pulse Ox 10/30/20 04:00 97.8 F 59 L 19 148/69 H 97 10/29/20 20:00 97.8 F 59 L 16 137/78 96 Weight Weight 221 lb 12.8 oz General Appearance: NAD, awake alert ENT: moist mucosa Heart: RRR, no murmur, no gallops, no rubs Respiratory: CTAB, no wheezes, no rales, no ronchi Gastrointestinal: soft, non-tender, non-distended, normal bowel sounds Neurological - other findings: Decreased strength in left upper extremity, un certain if this is chronic Psychiatric: normal affect, normal behavior, oriented to person. negative: oriented to place, oriented to time Hosp A/P - Plan TIA 85-year-old female with acute onset of slurred speech and left upper extremity weakness. Brought in from snf last seen normal evening prior to admission. Patient now back to her baseline mental status of alert and oriented x2. CT brain no acute findings but did show diffuse volume loss. No signs of infectious process at this time. Will admit for TIA rule out. Plan q4h neurochecks PT/OT/speech consult MRI brain- pending, carotid doppler- negative EEG without seizure activity Hemoglobin A1c, lipid panel Aspirin, statin Neurology consult- Dr. Durand has seen the patient Hypertension Hold in setting of permissive hypertension. Hyperlipidemia We will place on atorvastatin 40 mg Dementia Patient with baseline dementia. Resides at snf. Baseline A&O x2. We will continue reorienting measures. Neuropathy Hold home gabapentin in setting of AMS. 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 Will send for pacemaker interrogation. DVT prophylaxisLovenox DNR Disposition: Likely back to snf after MRI. MRI looks like it may not get done till tomorrow, so we will transition patient to inpatient. Head CT without contrast 10/29/2020: COMPARISON: 09/10/2019 HISTORY: Left-sided weakness with slurred speech TECHNIQUE: Axial CT imaging at 5 mm intervals from vertex through skull base without contrast FINDINGS: The visualized paranasal sinuses and mastoid air cells are well aerated. There is no displaced calvarial fracture. No intracranial hemorrhage, midline shift, or mass effect. There is atherosclerotic calcification of the cavernous carotid arteries. There is extensive periventricular, deep, and subcortical white matter hypodensity, evidence of significant small vessel disease. Stable diffuse cerebral volume loss. IMPRESSION: Stable head CT. No intracranial hemorrhage. If there is clinical concern for acute infarction, brain MRI recommended. BILATERAL CAROTID DUPLEX ULTRASOUND: HISTORY: Transient ischemic attack TECHNIQUE: Grayscale, color-flow and spectral Doppler ultrasound imaging of the extrac ranial carotid artery systems and vertebral arteries was performed bilaterally. FINDINGS: No large amount of echogenic plaque is seen involving the common carotid or internal carotid arteries. The peak systolic velocity in the right ICA measures 56.9 cm/s. The peak systolic velocity in the right CCA measures 69.9 cm/s. The peak systolic velocity in the left ICA measures 54.7 cm/s. The peak systolic velocity in the left CCA measures 50.3 cm/s. The right IC/CC ration is0.8. The left IC/CC ratio is 1.1. Vertebral flow: antegrade, bilaterally. . IMPRESSION: No hemodynamically significant stenosis of of the left or right cervical carotid artery
[2020-10-30] MEDS ORDERED: FLU VACC QS2020-21(65YR UP)/PF 240 MCG/0.7 ML SYRINGE IM ONE (09:00)
[2020-10-30] MEDS: AMOXicillin 250 MG CAP PO SCH ×3 (10:02→21:09)
[2020-10-30] MEDS: Aspirin 81 mg Enteric Coated Tablet PO SCH (10:03)
[2020-10-30] MEDS: Multivit, Therapeutic 1 TAB PO SCH (10:03)
[2020-10-30] MEDS: Enoxaparin Sodium 40 MG/0.4 ML SYRINGE SC SCH (10:03)
[2020-10-30] MEDS: Oxybutynin ER 5 MG TAB PO SCH (10:05)
--- NOTE | 2020-10-30 12:59 | PDOC.NEUPN ---
- Subjective Encounter Date: 10/30/20 Subjective: Mrs. Severino is doing much better today and is alert and oriented to person and place. Neurological deficits are resolved. - Objective Vital Signs & Weight: Vital Signs (12 hours) Temp Pulse Resp BP Pulse Ox 10/30/20 11:33 98.4 F 61 16 147/80 H 98 10/30/20 07:42 98.3 F 61 20 142/85 H 97 10/30/20 04:00 97.8 F 59 L 19 148/69 H 97 Weight Weight 221 lb 12.8 oz I&O: 10/29/20 10/30/20 10/31/20 06:59 06:59 06:59 Intake Total 125 480 Output Total 450 750 Balance -325 -270 Result Diagrams: 10/30/20 05:17 10/30/20 05:17 Radiology Reviewed by me: Yes EKG Reviewed by me: Yes ROS - Review of Systems ROS unobtainable: due to mental status (Patient has baseline dementia) - Medication Medications: Active Medications Generic Name Dose Route Start Last Admin Trade Name Freq PRN Reason Stop Dose Admin Acetaminophen 650 mg 10/29/20 11:42 10/29/20 16:53 Acetaminophen 325 Mg Tab PO 650 mg Q4H PRN Administration Headache/Fever/Mild Pain (1-3) Amoxicillin 500 mg 10/30/20 09:00 10/30/20 10:02 Amoxicillin 250 Mg Cap PO 11/01/20 09:01 500 mg TID SAMSON Administration Aspirin 81 mg 10/30/20 09:00 10/30/20 10:03 Aspirin 81 Mg Enteric Coated Tablet PO 81 mg DAILY SAMSON Administration Atorvastatin Calcium 40 mg 10/29/20 21:00 10/29/20 20:54 Atorvastatin Calcium 40 Mg Tab PO 40 mg HS SAMSON Administration Enoxaparin Sodium 40 mg 10/30/20 09:00 10/30/20 10:03 Enoxaparin Sodium 40 Mg/0.4 Ml Syringe SC 40 mg 0900 SAMSON Administration Multivitamins 1 tab 10/30/20 09:00 10/30/20 10:03 Multivit, Therapeutic 1 Tab PO 1 tab DAILY SAMSON Administration Oxybutynin Chloride 15 mg 10/30/20 09:00 10/30/20 10:05 Oxybutynin Er 5 Mg Tab PO 15 mg DAILY SAMSON Administration Sertraline HCl 150 mg 10/30/20 09:00 10/30/20 10:03 Sertraline Hcl 100 Mg Tab PO 150 mg DAILY SAMSON Administration Sodium Chloride 10 ml 10/29/20 11:42 10/30/20 10:06 Flush - Normal Saline 10 Ml Syringe IVF 10 ml PRN PRN Administration Saline Flush - Exam General Appearance: awake alert Eye: PERRL ENT: normocephalic atraumatic Neck: supple Respiratory: CTAB Cardiovascular: RRR Gastrointestinal: soft Extremities: no cyanosis Skin: normal turgor Neurological: no new deficit Musculoskeletal: normal tone, no muscle wasting PSYCH: normal affect, normal behavior, oriented to person, oriented to place Results - Labs Result Diagrams: 10/30/20 05:17 10/30/20 05:17 Lab results: WBC 5.4 thou/uL (4.8-10.8) 10/30/20 05:17 Hgb 12.6 g/dL (12.0-16.0) 10/30/20 05:17 Hct 40.8 % (36.0-47.0) 10/30/20 05:17 MCV 89.1 fL (78.0-98.0) 10/30/20 05:17 Plt Count 180 thou/uL (130-400) 10/30/20 05:17 Neutrophils % 62.6 % (42.0-75.0) 10/30/20 05:17 Sodium 140 mmol/L (136-145) 10/30/20 05:17 Potassium 3.8 mmol/L (3.5-5.1) 10/30/20 05:17 Chloride 108 mmol/L (98-107) H 10/30/20 05:17 Carbon Dioxide 26 mmol/L (23-31) 10/30/20 05:17 BUN 16 mg/dL (9.8-20.1) 10/30/20 05:17 Creatinine 0.79 mg/dL (0.6-1.1) 10/30/20 05:17 Glucose 95 mg/dL (83-110) 10/30/20 05:17 Calcium 8.8 mg/dL (7.8-10.44) 10/30/20 05:17 Total Bilirubin 0.3 mg/dL (0.2-1.2) 10/29/20 09:53 AST 29 U/L (5-34) 10/29/20 09:53 ALT 27 U/L (8-55) 10/29/20 09:53 Alkaline Phosphatase 79 U/L (40-110) 10/29/20 09:53 Troponin I Less than 0.010 ng/mL (< 0.028) 10/29/20 09:53 Serum Total Protein 7.1 g/dL (5.8-8.1) 10/29/20 09:53 Albumin 3.6 g/dL (3.4-4.8) 10/29/20 09:53 Urine Ketones Negative mg/dL (Negative) 10/29/20 09:35 Urine Blood Negative (Negative) 10/29/20 09:35 Urine Nitrite Negative (Negative) 10/29/20 09:35 Ur Leukocyte Esterase Negative Meron/uL (Negative) 10/29/20 09:35 - Radiology Interpretation CT scan - head Additional Comment: CT did not reveal acute intracranial pathology. PN A/P - Plan Daily Plan: PT/OT, speech therapy, DVT proph w/SCDs Mrs. Yi is an 85-year-old female who is a detention resident presented with acute onset of dysarthria and left upper extremity weakness which is now resolved and she is back to her baseline. There was also concern about increased confusion but currently she is alert and oriented x2 which is her baseline. Most likely transient ischemic attack. Head CT reviewed which was negative for acute intracranial pathology. MRI of the brain pending at this time since patient has a pacemaker. EEG ongoing to evaluate for an episode of increased confusion. We will follow up on the results 2D echo pending to evaluate for left ventricular ejection fraction Carotid Dopplers reviewed which were negative for hemodynamically significant stenosis. Continue aspirin and high intensity statin for secondary stroke prevention. Monitor blood pressure and blood glucose. Neurochecks every 4 hours. Continue telemetry to monitor for arrhythmias. PT/OT/speech. Continue medical management per primary team. DVT prophylaxis
[2020-10-30] MEDS: Acetaminophen 325 MG TAB PO PRN (13:03)
--- NOTE | 2020-10-30 13:49 | PDOC.EEG ---
Neurology EEG Report - Report Report: This EEG was performed using 24 channel [employer] video EEG machine with 24 disc electrodes. This was an extended 2-hour 6 minutes of inpatient video EEG recording. Digital analysis of the EEG was done for spike and seizure detection which revealed no abnormalities. Background: There is a nonsustained posterior background rhythm of 6 to 7 Hz. Minimal reactivity seen with eye opening and closure Hyperventilation: Not performed. Photic Stimulation: No significant response. Sleep: Drowsiness and sleep are observed EEG Diagnosis: Generalized irregular theta activity seen during the recording. Nonsustained slow posterior background rhythm. Clinical Interpretation: This EEG is consistent with moderate generalized nonspecific cerebral dysfunction. No electrographic seizures captured during the recording.
[2020-10-30] MEDS ORDERED: Gabapentin 100 MG CAP PO SCH (21:00)
[2020-10-30] MEDS: Atorvastatin Calcium 40 MG TAB PO SCH (21:10)
[2020-10-31] MEDS: Acetaminophen 325 MG TAB PO PRN (03:25)
[2020-10-31] MEDS: Enoxaparin Sodium 40 MG/0.4 ML SYRINGE SC SCH (08:20)
[2020-10-31] MEDS: AMOXicillin 250 MG CAP PO SCH ×2 (08:20→16:42)
[2020-10-31] MEDS: Aspirin 81 mg Enteric Coated Tablet PO SCH (08:20)
[2020-10-31] MEDS: Multivit, Therapeutic 1 TAB PO SCH (08:21)
[2020-10-31] MEDS: Oxybutynin ER 5 MG TAB PO SCH (08:21)
--- NOTE | 2020-10-31 11:56 | PDOC.NEUPN ---
- Subjective Encounter Date: 10/31/20 Subjective: Mrs Severino is doing better today and denies any new complaints in the last 24 hours. Awaiting MRI brain. - Objective Vital Signs & Weight: Vital Signs (12 hours) Temp Pulse Pulse Pulse Resp BP BP 10/31/20 09:00 62 78 145/82 H 142/83 H 10/31/20 07:43 98.4 F 60 18 10/31/20 03:56 98.0 F 66 18 10/31/20 00:03 BP Pulse Ox 10/31/20 09:00 10/31/20 07:43 141/76 H 96 10/31/20 03:56 140/80 95 10/31/20 00:03 118/64 Weight Weight 221 lb 12.8 oz I&O: 10/30/20 10/31/20 11/01/20 06:59 06:59 06:59 Intake Total 125 880 250 Output Total 450 1500 550 Balance -325 -620 -300 Result Diagrams: 10/30/20 05:17 10/30/20 05:17 Radiology Reviewed by me: Yes EKG Reviewed by me: Yes ROS - Review of Systems Constitutional: denies: fever, chills, sweats, weakness, malaise, other Eyes: denies: pain, vision change, conjunctivae inflammation, eyelid inflammation, redness, other ENT: denies: ear pain, ear discharge, nose pain, nose discharge, nose congestion, mouth pain, mouth swelling, throat pain, throat swelling, other Genitourinary: denies: dysuria, frequency, incontinence, hematuria, retention, other Musculoskeletal: denies: neck pain, shoulder pain, arm pain, back pain, hand pain, leg pain, foot pain, other All Systems: All other systems reviewed; all pertinent +/- noted in HPI/Subj - Medication Medications: Active Medications Generic Name Dose Route Start Last Admin Trade Name Freq PRN Reason Stop Dose Admin Acetaminophen 650 mg 10/29/20 11:42 10/31/20 03:25 Acetaminophen 325 Mg Tab PO 650 mg Q4H PRN Administration Headache/Fever/Mild Pain (1-3) Amoxicillin 500 mg 10/30/20 09:00 10/31/20 08:20 Amoxicillin 250 Mg Cap PO 11/01/20 09:01 500 mg TID SAMSON Administration Aspirin 81 mg 10/30/20 09:00 10/31/20 08:20 Aspirin 81 Mg Enteric Coated Tablet PO 81 mg DAILY SAMSON Administration Atorvastatin Calcium 40 mg 10/29/20 21:00 10/30/20 21:10 Atorvastatin Calcium 40 Mg Tab PO 40 mg HS SAMSON Administration Enoxaparin Sodium 40 mg 10/30/20 09:00 10/31/20 08:20 Enoxaparin Sodium 40 Mg/0.4 Ml Syringe SC 40 mg 0900 SAMSON Administration Gabapentin 100 mg 10/30/20 21:00 10/30/20 21:10 Gabapentin 100 Mg Cap PO 100 mg HS SAMSON Administration Multivitamins 1 tab 10/30/20 09:00 10/31/20 08:21 Multivit, Therapeutic 1 Tab PO 1 tab DAILY SAMSON Administration Oxybutynin Chloride 15 mg 10/30/20 09:00 10/31/20 08:21 Oxybutynin Er 5 Mg Tab PO 15 mg DAILY SAMSON Administration Sertraline HCl 150 mg 10/30/20 09:00 10/31/20 08:20 Sertraline Hcl 100 Mg Tab PO 150 mg DAILY SAMSON Administration Sodium Chloride 10 ml 10/29/20 11:42 10/30/20 10:06 Flush - Normal Saline 10 Ml Syringe IVF 10 ml PRN PRN Administration Saline Flush - Exam General Appearance: awake alert Eye: PERRL ENT: normocephalic atraumatic Neck: supple Respiratory: CTAB Cardiovascular: no murmur Gastrointestinal: soft Extremities: no cyanosis Skin: normal turgor Neurological: CN's grossly intact, normal sensation to touch, no weakness, no focal deficits, no new deficit Musculoskeletal: normal tone, no muscle wasting PSYCH: normal affect, normal behavior, A&O x 3, oriented to person, oriented to place, oriented to time Results - Labs Result Diagrams: 10/30/20 05:17 10/30/20 05:17 Lab results: WBC 5.4 thou/uL (4.8-10.8) 10/30/20 05:17 Hgb 12.6 g/dL (12.0-16.0) 10/30/20 05:17 Hct 40.8 % (36.0-47.0) 10/30/20 05:17 MCV 89.1 fL (78.0-98.0) 10/30/20 05:17 Plt Count 180 thou/uL (130-400) 10/30/20 05:17 Neutrophils % 62.6 % (42.0-75.0) 10/30/20 05:17 Sodium 140 mmol/L (136-145) 10/30/20 05:17 Potassium 3.8 mmol/L (3.5-5.1) 10/30/20 05:17 Chloride 108 mmol/L (98-107) H 10/30/20 05:17 Carbon Dioxide 26 mmol/L (23-31) 10/30/20 05:17 BUN 16 mg/dL (9.8-20.1) 10/30/20 05:17 Creatinine 0.79 mg/dL (0.6-1.1) 10/30/20 05:17 Glucose 95 mg/dL (83-110) 10/30/20 05:17 Calcium 8.8 mg/dL (7.8-10.44) 10/30/20 05:17 Total Bilirubin 0.3 mg/dL (0.2-1.2) 10/29/20 09:53 AST 29 U/L (5-34) 10/29/20 09:53 ALT 27 U/L (8-55) 10/29/20 09:53 Alkaline Phosphatase 79 U/L (40-110) 10/29/20 09:53 Troponin I Less than 0.010 ng/mL (< 0.028) 10/29/20 09:53 Serum Total Protein 7.1 g/dL (5.8-8.1) 10/29/20 09:53 Albumin 3.6 g/dL (3.4-4.8) 10/29/20 09:53 Urine Ketones Negative mg/dL (Negative) 10/29/20 09:35 Urine Blood Negative (Negative) 10/29/20 09:35 Urine Nitrite Negative (Negative) 10/29/20 09:35 Ur Leukocyte Esterase Negative Meron/uL (Negative) 10/29/20 09:35 - Radiology Interpretation CT scan - head Additional Comment: CT did not reveal acute intracranial pathology PN A/P (1) TIA (transient ischemic attack) Code(s): G45.9 - TRANSIENT CEREBRAL ISCHEMIC ATTACK, UNSPECIFIED Status: Acute (2) Acute encephalopathy Code(s): G93.40 - ENCEPHALOPATHY, UNSPECIFIED Status: Resolved (3) Frequent falls Code(s): R29.6 - REPEATED FALLS Status: Acute (4) Depression Code(s): F32.9 - MAJOR DEPRESSIVE DISORDER, SINGLE EPISODE, UNSPECIFIED Stat us: Chronic (5) Dyslipidemia Code(s): E78.5 - HYPERLIPIDEMIA, UNSPECIFIED Status: Chronic (6) Obesity (BMI 30-39.9) Code(s): E66.9 - OBESITY, UNSPECIFIED Status: Chronic - Plan Daily Plan: PT/OT, speech therapy Mrs. Yi is an 85-year-old female who is a longterm resident presented with acute onset of dysarthria and left upper extremity weakness which is now resolved and she is back to her baseline. There was also concern about increased confusion but currently she is alert and oriented x2 which is her baseline. Most likely transient ischemic attack. No acute complaints in the last 24 hours and patient is back to her baseline. Head CT reviewed which was negative for acute intracranial pathology. MRI of the brain pending at this time since patient has a pacemaker. EEG reviewed and was negative for seizure activity. 2D echo pending to evaluate for left ventricular ejection fraction Carotid Dopplers reviewed which were negative for hemodynamically significant stenosis. Continue aspirin and high intensity statin for secondary stroke prevention. Monitor blood pressure and blood glucose. Neurochecks every 4 hours. Continue telemetry to monitor for arrhythmias. PT/OT/speech. Continue medical management per primary team. DVT prophylaxis
--- NOTE | 2020-10-31 13:27 | PQF ---
CLINICAL DOCUMENTATION CLARIFICATION FORM: Dear Dr. Durand Date: 10/31/20 Please exercise your independent, professional judgment in responding to the clarification form. Clinical indicators are provided on the bottom of this form for your review. Please check appropriate box(es): [ ] Encephalopathy: Type: [ ] Acute [ ] Subacute [ ] Chronic Etiology: [ ] Hypertensive [ ] Metabolic [ ] Toxic [ ] Hypoxic [ ] Drug induced: [ ] In the setting of underlying dementia [ x ] Unspecified [ ] Other (please specify) [ x] Transient Alteration of Awareness [ ] Other diagnosis [ ] Unable to determine In addition, please specify: Present on Admission (POA): [ x ] Yes [ ] No [ ] Unable to determine For continuity of documentation, please document condition throughout progress notes and discharge summary. Thank You. To be completed by CDI/Coding staff for physician review: CLINICAL INDICATORS - SIGNS / SYMPTOMS / LABS / RESULTS AND LOCATION IN EMR PN 10/31- FIGUEROA: "ACUTE ENCEPHALOPATHY" ER NOTE: "AMS" Marilee&PBeverly VALENCIA: ("PATIENT CONFUSED DURING INTERVIEW") RISK FACTORS / RESULTS AND LOCATION IN EMR HTN (ER NOTE) H/O DEMENTIA (Antonio PEREZ) H/O ANXIETY (ER NOTE) TREATMENTS / RESULTS AND LOCATION IN EMR IV LORAZEPAM (ER) NEUROLOGY CONSULT Q4 HR NEURO CHECKS EEG ZOLOFT (10/30-PRESENT) CDS Signature: Enedina Ziegler RN Phone #: [phone] Date: 10/31/20 This is a permanent part of the Medical Record [facility]
--- NOTE | 2020-10-31 14:58 | MRI ---
Exam: Brain MRI without contrast HISTORY: Transient ischemic attack COMPARISON: None FINDINGS: Calvarial marrow signal intensity: Appropriate T1 signal Gradient echo sequence: Hypointensity is in the left cerebellar hemisphere and left occipital lobe li john represent remote lacunar infarcts. Brain parenchyma: No mass, mass effect or midline shift. Brain volume, age-appropriate. Cortical orona-white matter differentiation: Preserved Restricted diffusion: Central arterial flow voids are maintained. Absent restricted diffusion White matter signal intensities: T2, FLAIR white matter hyperintensities due to chronic small vessel ischemic changes Sinuses: Adequate aeration of the paranasal sinuses and mastoid air cells. IMPRESSION: 1. Age-appropriate atrophy. Confluent white matter hyperintensities due to chronic small vessel ische marc changes. 2. Absent restricted diffusion. No acute infarction.
--- NOTE | 2020-10-31 15:24 | PDOC.HOSPP ---
- Subjective Encounter Date: 10/31/20 Encounter Time: 10:00 Subjective: feels good, no sob or weakness says she amb with rw to the door and back? - Objective Vital Signs & Weight: Vital Signs (12 hours) Temp Pulse Pulse Pulse Resp BP BP 10/31/20 11:50 98.2 F 70 14 10/31/20 10:43 61 65 139/70 147/83 H 10/31/20 09:00 62 78 145/82 H 142/83 H 10/31/20 07:43 98.4 F 60 18 10/31/20 03:56 98.0 F 66 18 BP Pulse Ox 10/31/20 11:50 176/91 H 95 10/31/20 10:43 10/31/20 09:00 10/31/20 07:43 141/76 H 96 10/31/20 03:56 140/80 95 Weight Weight 221 lb 12.8 oz I&O: 10/30/20 10/31/20 11/01/20 06:59 06:59 06:59 Intake Total 125 880 250 Output Total 450 1500 550 Balance -325 -620 -300 Result Diagrams: 10/30/20 05:17 10/30/20 05:17 Hospitalist ROS - Medication Medications: Active Medications Generic Name Dose Route Start Last Admin Trade Name Freq PRN Reason Stop Dose Admin Acetaminophen 650 mg 10/29/20 11:42 10/31/20 03:25 Acetaminophen 325 Mg Tab PO 650 mg Q4H PRN Administration Headache/Fever/Mild Pain (1-3) Amoxicillin 500 mg 10/30/20 09:00 10/31/20 08:20 Amoxicillin 250 Mg Cap PO 11/01/20 09:01 500 mg TID SAMSON Administration Aspirin 81 mg 10/30/20 09:00 10/31/20 08:20 Aspirin 81 Mg Enteric Coated Tablet PO 81 mg DAILY SAMSON Administration Atorvastatin Calcium 40 mg 10/29/20 21:00 10/30/20 21:10 Atorvastatin Calcium 40 Mg Tab PO 40 mg HS SAMSON Administration Enoxaparin Sodium 40 mg 10/30/20 09:00 10/31/20 08:20 Enoxaparin Sodium 40 Mg/0.4 Ml Syringe SC 40 mg 0900 SAMSON Administration Gabapentin 100 mg 10/30/20 21:00 10/30/20 21:10 Gabapentin 100 Mg Cap PO 100 mg HS SAMSON Administration Multivitamins 1 tab 10/30/20 09:00 10/31/20 08:21 Multivit, Therapeutic 1 Tab PO 1 tab DAILY SAMSON Administration Oxybutynin Chloride 15 mg 10/30/20 09:00 10/31/20 08:21 Oxybutynin Er 5 Mg Tab PO 15 mg DAILY SAMSON Administration Sertraline HCl 150 mg 10/30/20 09:00 10/31/20 08:20 Sertraline Hcl 100 Mg Tab PO 150 mg DAILY SAMSON Administration Sodium Chloride 10 ml 10/29/20 11:42 10/30/20 10:06 Flush - Normal Saline 10 Ml Syringe IVF 10 ml PRN PRN Administration Saline Flush Hospitalist Exam Vitals: Vital Signs (12 hours) Temp Pulse Pulse Pulse Resp BP BP 10/31/20 11:50 98.2 F 70 14 10/31/20 10:43 61 65 139/70 147/83 H 10/31/20 09:00 62 78 145/82 H 142/83 H 10/31/20 07:43 98.4 F 60 18 10/31/20 03:56 98.0 F 66 18 BP Pulse Ox 10/31/20 11:50 176/91 H 95 10/31/20 10:43 10/31/20 09:00 10/31/20 07:43 141/76 H 96 10/31/20 03:56 140/80 95 Weight Weight 221 lb 12.8 oz General Appearance: awake alert Eye: PERRL, anicteric sclera ENT: no oropharyngeal lesions, moist mucosa Neck: supple, no JVD Heart: RRR, no murmur Respiratory: no wheezes, no rales Gastrointestinal: soft, non-tender, non-distended, normal bowel sounds Extremities: no cyanosis, no edema Neurological: cranial nerve grossly intact, no focal deficits Hosp A/P (1) TIA (transient ischemic attack) Code(s): G45.9 - TRANSIENT CEREBRAL ISCHEMIC ATTACK, UNSPECIFIED Status: Acute (2) Depression Code(s): F32.9 - MAJOR DEPRESSIVE DISORDER, SINGLE EPISODE, UNSPECIFIED Status: Chronic Qualifiers: Depression Type: unspecified Qualified Code(s): F32.9 - Major depressive disorder, single episode, unspecified (3) Dyslipidemia Code(s): E78.5 - HYPERLIPIDEMIA, UNSPECIFIED Status: Chronic (4) HTN (hypertension) Code(s): I10 - ESSENTIAL (PRIMARY) HYPERTENSION Status: Chronic Qualifiers: Hypertension type: essential hypertension (5) Obesity (BMI 30-39.9) Code(s): E66.9 - OBESITY, UNSPECIFIED Status: Chronic (6) Acute encephalopathy Code(s): G93.40 - ENCEPHALOPATHY, UNSPECIFIED Status: Resolved - Plan left sided weakness and slurred speech resolved imaging is -ve for ac cva hemostable may dc anytime to her snf
[2020-10-31 16:07] VITALS: BP 149/92; TEMP 97.7
--- NOTE | 2020-11-01 10:03 | DIS ---
DATE OF ADMISSION: 10/30/2020 DATE OF DISCHARGE: 10/31/2020 DISCHARGE DISPOSITION: [facility]. PRIMARY DISCHARGE DIAGNOSIS: Transient ischemic attack, resolved. SECONDARY DISCHARGE DIAGNOSES: Acute metabolic encephalopathy, resolved; hypertension; dyslipidemia; history of pacemaker. PROCEDURES DONE DURING HOSPITALIZATION: Ultrasound of carotids done showed no hemodynamically significant stenosis. CT of the brain without contrast done showed no intracranial hemorrhage. There is extensive periventricular deep and subcortical white matter hypodensity, evidence of significant small vessel disease, stable diffuse cerebral volume loss. MRI of the brain showed age-appropriate atrophy and chronic white matter hyperdensities due to chronic small vessel ischemic changes seen, absent restricted diffusion, no acute infarct. EEG done showed moderate generalized nonspecific cerebral dysfunction. No EEG seizures captured. Hemoglobin and hematocrit 12 and 40, platelet count 180. BUN 16, creatinine 0.7. Total cholesterol 129, triglycerides 72, LDL 65, HDL 50. HbA1c 5.4. COVID-19 PCR was not detected on 10/29/2020. DISCHARGE MEDICATIONS: The patient to continue: 1. Amoxicillin 500 mg three times daily until tomorrow. 2. Lasix 20 mg daily. 3. Gabapentin 100 mg p.o. at bedtime. 4. Oxybutynin extended release 15 mg daily. 5. Pravachol 40 mg p.o. at bedtime. 6. Multivitamin one tablet once daily. 7. Lisinopril 20 mg p.o. at bedtime. 8. Aspirin 81 mg p.o. daily. 9. Sertraline 150 mg p.o. daily. 10. Tylenol No. 3 every 6 hours p.r.n. ALLERGIES: MORPHINE, TRAMADOL. DISCHARGE PLAN: The patient to follow up with her primary care physician at the [facility] in one week. BRIEF COURSE DURING HOSPITALIZATION: The patient initially was sent over from [facility] for left-sided weakness and shoulder pain. She was also confused. The patient was placed under observation on stroke unit. She has had complete neurologic workup including CT of the brain and MRI of the brain, which have not revealed any acute infarct. The patient is back to her normal cognitive self this morning. She was ambulated minimally with physical therapy in the room. She has remained neurologically stable and hemodynamically stable. The patient to continue amoxicillin as before until tomorrow. Her left-sided weakness and slurred speech have completely resolved. A total of 35 minutes was spent on discharge plan. Please see a [id number] documentation for the day of discharge on [employer]. Job ID: [id number]
--- NOTE | 2020-11-02 15:37 | EKG ---
Test Reason : Blood Pressure : / mmHG Vent. Rate : 060 BPM Atrial Rate : 060 BPM P-R Int : 152 ms QRS Dur : 084 ms QT Int : 436 ms P-R-T Axes : 000 -59 -09 degrees QTc Int : 436 ms Electronic atrial pacemaker Left anterior fascicular block Possible Lateral infarct , age undetermined Abnormal ECG Confirmed by HUMBERTO DELACRUZ DO ([id number]), health editor AGUS VERDUZCO ([id number]) on 11/02/2020 3:37:10 PM Referred By: Confirmed By:HUMBERTO DELACRUZ DO
== END 2020-10-31 17:55 | DRG 69 ==
LOC: ERS 07:42 → 2SE 10:50 → OBSVTOIN 10-30 14:42
PROVIDERS: ADMIT Internal Medicine; ATTEND Internal Medicine
DX: G45.9 Transient cerebral ischemic attack, unspecified (principal); G93.41 Metabolic encephalopathy; G81.94 Hemiplegia, unspecified affecting left nondominant side; F03.90 Unspecified dementia, unspecified severity, without behavioral disturbance, psychotic disturbance, mood disturbance, and anxiety; M19.90 Unspecified osteoarthritis, unspecified site; I10 Essential (primary) hypertension; R29.6 Repeated falls; F32.9 Major depressive disorder, single episode, unspecified; E66.9 Obesity, unspecified; G62.9 Polyneuropathy, unspecified; Z20.822 Contact with and (suspected) exposure to COVID-19; E78.5 Hyperlipidemia, unspecified; Z95.0 Presence of cardiac pacemaker; Z88.6 Allergy status to analgesic agent; Z79.82 Long term (current) use of aspirin; Z68.35 Body mass index [BMI] 35.0-35.9, adult
CPT/HCPCS: 36415; 51701; 70450; 70551; 80048; 80053; 80061; 81003; 83036; 83735; 84443; 84484; 85025; 85610; 85730; 87635; 93005; 93880; 95712; 95819; 95957; 96372; G0378; J1650; U0003; U0005

== ENCOUNTER 2020-11-26 07:45 | Emergency (ER) | payer MEDICARE, MEDICAID ==
[2020-11-26] MEDS ORDERED: Ondansetron PF 4 MG/2 ML Vial ONE (08:13)
[2020-11-26] MEDS ORDERED: Acetaminophen 325 MG TAB ONE (08:13)
[2020-11-26 08:39] LABS: #Eosinphils 0.2 thou/uL (0.0-0.7); #Lymphocytes 1.4 thou/uL (1.20-3.40); #Monocytes 0.5 thou/uL (0.11-0.59); #Neutrophils 3.4 thou/uL (1.40-6.50); %Basophils 0.5 % (0.0-1.0); %Eosinophils 3.2 % (0.0-10.0); %Lymphocytes 25.2 % (21.0-51.0); %Monocytes 9.2 % (0.0-10.0); %Neutrophils 61.9 % (42.0-75.0); Hemoglobin 13.7 g/dL (12.0-16.0); Mean Corpuscular HGB CONC 32.4 g/dL (32.0-36.0); Mean Corpuscular Hemoglobin 27.9 pg (27.0-31.0); Mean Corpuscular Volume 86.1 fL (78.0-98.0); Mean Platelet Volume 7.9 fL (7.4-10.4); Platelet Count 194 thou/uL (130-400); RBC Distribution Width 12.8 % (11.5-14.5); Red Blood Cell (RBC) Count 4.89 mill/uL (4.20-5.40); White Blood Cell (WBC) Count 5.5 thou/uL (4.8-10.8)
[2020-11-26 09:03] LABS: ALT (SGPT) 17 U/L (8-55); AST (SGOT) 22 U/L (5-34); Albumin 3.9 g/dL (3.4-4.8); Alkaline Phosphatase 76 U/L (40-110); Anion Gap 11 mmol/L (10-20); BUN (Urea Nitrogen) 23 mg/dL (9.8-20.1); Bilirubin, Total 0.3 mg/dL (0.2-1.2); Calc. Creatinine Clearance 0 mL/min (70-130); Calcium 9.6 mg/dL (7.8-10.44); Carbon Dioxide 28 mmol/L (23-31); Chloride 107 mmol/L (98-107); Globulin 3.7 g/dL (2.4-3.5); Glucose 90 mg/dL (83-110); Lipase 13 U/L (8-78); Potassium 3.6 mmol/L (3.5-5.1); Protein, Total 7.6 g/dL (5.8-8.1); Sodium 142 mmol/L (136-145)
[2020-11-26 09:26] LABS: Bilirubin Negative (Negative); Blood, Urine Negative (Negative); Glucose, Urine (Dipstick) Negative (Negative); Ketone, Urine Negative (Negative); Leukocyte Negative (Negative); Nitrite Negative (Negative); Protein, Urine (Dipstick) Negative (Neg-Trace); Urobilinogen 0.2 mg/dL (Less than 2); pH, Urine 6.5 (5.0-9.0)
[2020-11-26 09:38] LABS: Clarity Clear (Clear)
== END 2020-11-26 12:26 ==
LOC: ERS 07:45
DX: M25.50 Pain in unspecified joint (principal); E78.5 Hyperlipidemia, unspecified; E78.00 Pure hypercholesterolemia, unspecified; I10 Essential (primary) hypertension; Z79.82 Long term (current) use of aspirin; Z79.899 Other long term (current) drug therapy
CPT/HCPCS: 71045; 80053; 81003; 83690; 83880; 84484; 85025; 93005; 96374; J2405

== ENCOUNTER 2021-02-03 09:18 | Inpatient (IN) | payer MEDICARE, MEDICAID ==
[~2021-02-03 09:18] MED LIST: Iopamidol-370 76% 500 ML 1 ML ONE
[2021-02-03 10:22] LABS: #Eosinphils 0.2 thou/uL (0.0-0.7); #Lymphocytes 1.2 thou/uL (1.20-3.40); #Monocytes 0.5 thou/uL (0.11-0.59); %Basophils 0.2 % (0.0-1.0); %Eosinophils 2.8 % (0.0-10.0); %Monocytes 8.5 % (0.0-10.0); %Neutrophils 67.5 % (42.0-75.0); Hemoglobin 14.3 g/dL (12.0-16.0); Mean Corpuscular HGB CONC 31.5 g/dL (32.0-36.0); Mean Corpuscular Hemoglobin 27.2 pg (27.0-31.0); Mean Corpuscular Volume 86.2 fL (78.0-98.0); Mean Platelet Volume 7.6 fL (7.4-10.4); Platelet Count 184 thou/uL (130-400); RBC Distribution Width 12.8 % (11.5-14.5); Red Blood Cell (RBC) Count 5.27 mill/uL (4.20-5.40); White Blood Cell (WBC) Count 5.9 thou/uL (4.8-10.8)
[2021-02-03 10:37] LABS: INR-International Normal Ratio 0.9; PTT 27.5 sec (22.9-36.1); Prothrombin Time 12.7 sec (12.0-14.7)
[2021-02-03 10:46] LABS: ALT (SGPT) 14 U/L (8-55); AST (SGOT) 18 U/L (5-34); Alkaline Phosphatase 82 U/L (40-110); Anion Gap 14 mmol/L (10-20); BUN (Urea Nitrogen) 20 mg/dL (9.8-20.1); Bilirubin, Total 0.4 mg/dL (0.2-1.2); Calc. Creatinine Clearance 0 mL/min (70-130); Calcium 9.7 mg/dL (7.8-10.44); Carbon Dioxide 26 mmol/L (23-31); Chloride 106 mmol/L (98-107); Globulin 3.6 g/dL (2.4-3.5); Glucose 93 mg/dL (83-110); Potassium 3.7 mmol/L (3.5-5.1); Protein, Total 7.6 g/dL (5.8-8.1); Sodium 142 mmol/L (136-145)
[2021-02-03] MEDS ORDERED: Aspirin 300 MG Suppository ONE (11:26)
[2021-02-03 18:28] LABS: SARS-CoV-2 PCR by NAA Not Detected (NotDetected)
[2021-02-03] MEDS ORDERED: hydrALAZINE 20 MG/ML VIAL SLOW IVP PRN (19:34)
[2021-02-03] MEDS ORDERED: Labetalol HCl 100 MG/20 ML VIAL SLOW IVP PRN (19:34)
[2021-02-03 22:49] VITALS: BMI 35.6
[2021-02-04] MEDS: Atorvastatin Calcium 40 MG TAB PO SCH ×2 (01:05→20:58)
[2021-02-04 04:44] LABS: #Eosinphils 0.1 thou/uL (0.0-0.7); #Lymphocytes 1.4 thou/uL (1.20-3.40); #Monocytes 0.7 thou/uL (0.11-0.59); #Neutrophils 6.4 thou/uL (1.40-6.50); %Basophils 0.3 % (0.0-1.0); %Lymphocytes 16.4 % (21.0-51.0); %Monocytes 7.7 % (0.0-10.0); %Neutrophils 74.6 % (42.0-75.0); Hemoglobin 14.1 g/dL (12.0-16.0); Mean Corpuscular Hemoglobin 28.5 pg (27.0-31.0); Mean Corpuscular Volume 86.4 fL (78.0-98.0); Mean Platelet Volume 8.1 fL (7.4-10.4); Platelet Count 203 thou/uL (130-400); RBC Distribution Width 12.6 % (11.5-14.5); Red Blood Cell (RBC) Count 4.97 mill/uL (4.20-5.40); White Blood Cell (WBC) Count 8.5 thou/uL (4.8-10.8)
[2021-02-04 05:03] LABS: Anion Gap 14 mmol/L (10-20); BUN (Urea Nitrogen) 19 mg/dL (9.8-20.1); Calc. Creatinine Clearance 74 mL/min (70-130); Calcium 9.7 mg/dL (7.8-10.44); Carbon Dioxide 24 mmol/L (23-31); Cardiac Risk 2.3 (Less than 4.5); Chloride 109 mmol/L (98-107); Cholesterol 149 mg/dl (< 200 Desired); Glucose 89 mg/dL (83-110); HDL Cholesterol 64 mg/dL (>60 Neg Risk); LDL Cholesterol, Calculated 75 mg/dL; Potassium 3.4 mmol/L (3.5-5.1); Sodium 144 mmol/L (136-145); Triglycerides 50 mg/dL (Less than 150)
[2021-02-04 07:25] LABS: Bilirubin Negative (Negative); Blood, Urine Negative (Negative); Glucose, Urine (Dipstick) Negative (Negative); Ketone, Urine 40 mg/dL (Negative); Leukocyte Negative (Negative); Nitrite Negative (Negative); Protein, Urine (Dipstick) 30 mg/dL (Neg-Trace); Urobilinogen 0.2 mg/dL (Less than 2)
[2021-02-04 07:27] LABS: Clarity Clear (Clear)
[2021-02-04 07:30] LABS: Bacteria/HPF None Seen HPF (None Seen); RBC/HPF 0-3 HPF (0-3); Squamous Epithelial 0-3 HPF (0-3); WBC/HPF 0-3 HPF (0-3)
[2021-02-04 07:32] LABS: Urine Culture Reflex No No
[2021-02-05 04:52] LABS: #Lymphocytes 1.2 thou/uL (1.20-3.40); #Monocytes 0.7 thou/uL (0.11-0.59); #Neutrophils 5.9 thou/uL (1.40-6.50); %Basophils 0.3 % (0.0-1.0); %Eosinophils 0.3 % (0.0-10.0); %Lymphocytes 15.6 % (21.0-51.0); %Monocytes 8.4 % (0.0-10.0); %Neutrophils 75.5 % (42.0-75.0); Hemoglobin 13.7 g/dL (12.0-16.0); Mean Corpuscular HGB CONC 31.9 g/dL (32.0-36.0); Mean Corpuscular Hemoglobin 27.4 pg (27.0-31.0); Mean Corpuscular Volume 85.8 fL (78.0-98.0); Mean Platelet Volume 7.6 fL (7.4-10.4); Platelet Count 211 thou/uL (130-400); RBC Distribution Width 12.9 % (11.5-14.5); White Blood Cell (WBC) Count 7.8 thou/uL (4.8-10.8)
[2021-02-05 05:17] LABS: Anion Gap 11 mmol/L (10-20); BUN (Urea Nitrogen) 22 mg/dL (9.8-20.1); Calc. Creatinine Clearance 75 mL/min (70-130); Calcium 9.7 mg/dL (7.8-10.44); Carbon Dioxide 26 mmol/L (23-31); Chloride 109 mmol/L (98-107); Glucose 114 mg/dL (83-110); Potassium 3.4 mmol/L (3.5-5.1); Sodium 143 mmol/L (136-145)
[2021-02-05] MEDS: Aspirin Chewable 81 MG TAB PO SCH (08:33)
[2021-02-05] MEDS: Oxybutynin ER 5 MG TAB PO SCH (08:33)
[2021-02-05] MEDS ORDERED: Furosemide 40 MG/4 ML VIAL SLOW IVP SCH (11:15)
[2021-02-05] MEDS ORDERED: Ondansetron ODT 4 MG TAB PO PRN (17:20)
[2021-02-05] MEDS ORDERED: Simvastatin 10 MG TAB PO SCH (21:00)
[2021-02-05] MEDS: Atorvastatin Calcium 40 MG TAB PO SCH (21:38)
[2021-02-05] MEDS: Baclofen 10 MG TAB PO SCH (21:38)
[2021-02-06] MEDS: Aspirin Chewable 81 MG TAB PO SCH (08:58)
[2021-02-06] MEDS: Oxybutynin ER 5 MG TAB PO SCH (08:58)
[2021-02-06] MEDS: Baclofen 10 MG TAB PO SCH ×2 (08:59→16:10)
[2021-02-06] MEDS ORDERED: Multivitamin W/ Minerals 1 TAB PO SCH (09:00)
[2021-02-06] MEDS ORDERED: Potassium Chloride 20 MEQ TAB PO SCH (11:45)
[2021-02-06 16:46] VITALS: BP 149/70; TEMP 97.6
== END 2021-02-06 18:25 | DRG 92 ==
LOC: ERS 09:18 → ERHOLD 12:28 → 2NO 21:39
PROVIDERS: ADMIT Internal Medicine; ATTEND Internal Medicine
DX: G92 Toxic encephalopathy (principal); J81.1 Chronic pulmonary edema; Z20.822 Contact with and (suspected) exposure to COVID-19; G81.91 Hemiplegia, unspecified affecting right dominant side; E78.5 Hyperlipidemia, unspecified; E78.00 Pure hypercholesterolemia, unspecified; M19.90 Unspecified osteoarthritis, unspecified site; I10 Essential (primary) hypertension; F03.90 Unspecified dementia, unspecified severity, without behavioral disturbance, psychotic disturbance, mood disturbance, and anxiety; N32.81 Overactive bladder; G62.9 Polyneuropathy, unspecified; G93.89 Other specified disorders of brain; T50.915A Adverse effect of multiple unspecified drugs, medicaments and biological substances, initial encounter; E66.01 Morbid (severe) obesity due to excess calories; F32.9 Major depressive disorder, single episode, unspecified; E87.6 Hypokalemia; Z79.899 Other long term (current) drug therapy; Z88.5 Allergy status to narcotic agent; Z90.710 Acquired absence of both cervix and uterus; Z95.0 Presence of cardiac pacemaker; Z68.36 Body mass index [BMI] 36.0-36.9, adult
CPT/HCPCS: 36415; 36416; 70450; 70496; 70498; 70551; 71045; 80048; 80053; 80061; 81001; 84484; 85025; 85610; 85730; 93005; 93306; 95712; 95819; 95957; J1940; Q9967; U0003; U0005

== ENCOUNTER 2021-02-19 09:09 | Emergency (ER) | payer MEDICARE, MEDICAID ==
[2021-02-19 10:31] LABS: Bilirubin Negative (Negative); Blood, Urine Negative (Negative); Clarity Clear (Clear); Glucose, Urine (Dipstick) Normal (Negative); Ketone, Urine Negative (Negative); Leukocyte Negative Leu/uL (Negative); Nitrite Negative (Negative); Protein, Urine (Dipstick) 20 mg/dL (Neg-Trace); Urobilinogen Normal mg/dL (Less than 2); pH, Urine 5.5 (5.0-9.0)
[2021-02-19 10:33] LABS: #Eosinphils 0.1 thou/uL (0.0-0.7); #Lymphocytes 1.4 thou/uL (1.20-3.40); #Monocytes 0.4 thou/uL (0.11-0.59); #Neutrophils 4.4 thou/uL (1.40-6.50); %Basophils 0.5 % (0.0-1.0); %Eosinophils 1.7 % (0.0-10.0); %Lymphocytes 21.8 % (21.0-51.0); %Monocytes 6.4 % (0.0-10.0); %Neutrophils 69.6 % (42.0-75.0); Hemoglobin 13.8 g/dL (12.0-16.0); Mean Corpuscular HGB CONC 31.1 g/dL (32.0-36.0); Mean Corpuscular Hemoglobin 27.1 pg (27.0-31.0); Mean Corpuscular Volume 87.1 fL (78.0-98.0); Mean Platelet Volume 8.1 fL (7.4-10.4); Platelet Count 225 thou/uL (130-400); RBC Distribution Width 12.7 % (11.5-14.5); Red Blood Cell (RBC) Count 5.09 mill/uL (4.20-5.40); White Blood Cell (WBC) Count 6.3 thou/uL (4.8-10.8)
[2021-02-19 10:57] LABS: ALT (SGPT) 26 U/L (8-55); AST (SGOT) 32 U/L (5-34); Albumin 3.7 g/dL (3.4-4.8); Alkaline Phosphatase 81 U/L (40-110); Anion Gap 11 mmol/L (10-20); BUN (Urea Nitrogen) 13 mg/dL (9.8-20.1); Bilirubin, Total 0.3 mg/dL (0.2-1.2); Calc. Creatinine Clearance 0 mL/min (70-130); Calcium 10.3 mg/dL (7.8-10.44); Carbon Dioxide 29 mmol/L (23-31); Chloride 107 mmol/L (98-107); Globulin 3.8 g/dL (2.4-3.5); Glucose 87 mg/dL (83-110); Potassium 4.2 mmol/L (3.5-5.1); Protein, Total 7.5 g/dL (5.8-8.1); Sodium 143 mmol/L (136-145)
== END 2021-02-19 14:01 | disposition home or self-care (01) ==
LOC: ERS 09:09
DX: R47.81 Slurred speech (principal); M19.90 Unspecified osteoarthritis, unspecified site; E78.5 Hyperlipidemia, unspecified; E78.00 Pure hypercholesterolemia, unspecified; I10 Essential (primary) hypertension; E66.9 Obesity, unspecified; F03.90 Unspecified dementia, unspecified severity, without behavioral disturbance, psychotic disturbance, mood disturbance, and anxiety; Z86.73 Personal history of transient ischemic attack (TIA), and cerebral infarction without residual deficits; Z79.82 Long term (current) use of aspirin; Z79.899 Other long term (current) drug therapy
CPT/HCPCS: 51701; 70450; 71045; 80053; 81003; 84484; 85025; 93005

== ENCOUNTER 2021-06-02 10:57 | Inpatient (IN) | payer MEDICARE, MEDICAID ==
[2021-06-02 11:47] LABS: #Eosinphils 0.2 thou/uL (0.0-0.7); #Lymphocytes 1.6 thou/uL (1.20-3.40); #Monocytes 0.4 thou/uL (0.11-0.59); #Neutrophils 6.2 thou/uL (1.40-6.50); %Basophils 0.4 % (0.0-1.0); %Lymphocytes 19.2 % (21.0-51.0); %Monocytes 4.6 % (0.0-10.0); %Neutrophils 73.7 % (42.0-75.0); Hemoglobin 14.3 g/dL (12.0-16.0); Mean Corpuscular HGB CONC 31.4 g/dL (32.0-36.0); Mean Corpuscular Hemoglobin 26.9 pg (27.0-31.0); Mean Corpuscular Volume 85.8 fL (78.0-98.0); Mean Platelet Volume 8.2 fL (7.4-10.4); Platelet Count 226 thou/uL (130-400); RBC Distribution Width 13.1 % (11.5-14.5); Red Blood Cell (RBC) Count 5.31 mill/uL (4.20-5.40); White Blood Cell (WBC) Count 8.4 thou/uL (4.8-10.8)
[2021-06-02 12:03] LABS: PTT 30.8 sec (22.9-36.1); Prothrombin Time 13.4 sec (12.0-14.7)
[2021-06-02 12:19] LABS: ALT (SGPT) 9 U/L (8-55); AST (SGOT) 16 U/L (5-34); Albumin 3.9 g/dL (3.4-4.8); Alkaline Phosphatase 76 U/L (40-110); Anion Gap 13 mmol/L (10-20); BUN (Urea Nitrogen) 19 mg/dL (9.8-20.1); Bilirubin, Total 0.4 mg/dL (0.2-1.2); CK (CPK) 25 U/L (29-168); Calc. Creatinine Clearance 0 mL/min (70-130); Calcium 9.9 mg/dL (7.8-10.44); Carbon Dioxide 24 mmol/L (23-31); Chloride 111 mmol/L (98-107); Globulin 3.7 g/dL (2.4-3.5); Glucose 96 mg/dL (83-110); Magnesium 2.1 mg/dL (1.6-2.6); Potassium 4.1 mmol/L (3.5-5.1); Protein, Total 7.6 g/dL (5.8-8.1); Sodium 144 mmol/L (136-145)
[2021-06-02] MEDS ORDERED: Aspirin 325 MG TAB ONE (13:40)
[2021-06-02] MEDS ORDERED: hydrALAZINE 20 MG/ML VIAL SLOW IVP PRN (14:39)
[2021-06-02] MEDS ORDERED: Ondansetron PF 4 MG/2 ML Vial IVP PRN (14:42)
[2021-06-02] MEDS ORDERED: Ondansetron ODT 4 MG TAB PO PRN (14:42)
[2021-06-02] MEDS ORDERED: Acetaminophen 325 MG TAB PO PRN (14:42)
[2021-06-02 15:42] LABS: Bacteria/HPF 3+ HPF (None Seen); Bilirubin Negative (Negative); Blood, Urine Negative (Negative); Clarity Turbid (Clear); Glucose, Urine (Dipstick) Normal (Negative); Ketone, Urine 40 mg/dL (Negative); Leukocyte 500 Leu/uL (Negative); Nitrite 1+ (Negative); Protein, Urine (Dipstick) 30 mg/dL (Neg-Trace); Urobilinogen Normal mg/dL (Less than 2)
[2021-06-02 15:50] LABS: Specific Gravity, Urine Greater than 1.060 (1.002-1.036); WBC/HPF 21-50 HPF (0-3)
[2021-06-02 16:11] LABS: Amphetamine Not Detected (NotDetected); Barbiturates Screen Not Detected (NotDetected); Benzodiazepine Screen Not Detected (NotDetected); Cocaine Metabolite Screen Not Detected (NotDetected); Methadone Not Detected (NotDetected); Methamphetamine Not Detected (NotDetected); Opiate Screen Not Detected (NotDetected); Oxycodone Screen Not Detected (NotDetected); Phencyclidine (PCP) Not Detected (NotDetected); THC/Cannabinoid Screen Not Detected (NotDetected); Tricyclic Screen Not Detected (NotDetected)
[2021-06-02 16:22] LABS: Acetaminophen Less than 6.0 mcg/mL (10.0-30.0); Alcohol Less than 10 mg/dL (Less than 10); Salicylate Less than 8.0 mg/dL (15.0-30.0)
[2021-06-02 16:26] LABS: Troponin I Less than 0.010 ng/mL (< 0.028)
[2021-06-02 18:32] LABS: Troponin I 0.012 ng/mL (< 0.028)
[2021-06-02] MEDS: Atorvastatin Calcium 40 MG TAB PO SCH (20:41)
[2021-06-02 23:37] LABS: Bacteria/HPF 2+ HPF (None Seen); Bilirubin Negative (Negative); Blood, Urine Negative (Negative); Clarity Clear (Clear); Glucose, Urine (Dipstick) Normal (Negative); Ketone, Urine 60 mg/dL (Negative); Leukocyte 500 Leu/uL (Negative); Nitrite Negative (Negative); Protein, Urine (Dipstick) 50 mg/dL (Neg-Trace); Specific Gravity, Urine 1.051 (1.002-1.036); Urobilinogen Normal mg/dL (Less than 2); WBC/HPF Greater than 50 HPF (0-3)
[2021-06-03 00:41] LABS: SARS-CoV-2 PCR by NAA Not Detected (NotDetected)
[2021-06-03 06:04] LABS: #Eosinphils 0.2 thou/uL (0.0-0.7); #Lymphocytes 1.5 thou/uL (1.20-3.40); #Monocytes 0.5 thou/uL (0.11-0.59); #Neutrophils 4.9 thou/uL (1.40-6.50); %Basophils 0.4 % (0.0-1.0); %Eosinophils 2.7 % (0.0-10.0); %Lymphocytes 20.6 % (21.0-51.0); %Monocytes 6.9 % (0.0-10.0); %Neutrophils 69.4 % (42.0-75.0); Mean Corpuscular HGB CONC 31.9 g/dL (32.0-36.0); Mean Corpuscular Hemoglobin 27.2 pg (27.0-31.0); Mean Corpuscular Volume 85.4 fL (78.0-98.0); Mean Platelet Volume 7.7 fL (7.4-10.4); Platelet Count 207 thou/uL (130-400); RBC Distribution Width 13.1 % (11.5-14.5); Red Blood Cell (RBC) Count 5.15 mill/uL (4.20-5.40); White Blood Cell (WBC) Count 7.1 thou/uL (4.8-10.8)
[2021-06-03 06:24] LABS: Anion Gap 14 mmol/L (10-20); BUN (Urea Nitrogen) 17 mg/dL (9.8-20.1); Calc. Creatinine Clearance 79 mL/min (70-130); Carbon Dioxide 24 mmol/L (23-31); Chloride 109 mmol/L (98-107); Potassium 3.5 mmol/L (3.5-5.1); Sodium 143 mmol/L (136-145)
[2021-06-03 06:25] LABS: Calcium 9.8 mg/dL (7.8-10.44); Cardiac Risk 2.6 (Less than 4.5); Cholesterol 165 mg/dl (< 200 Desired); Glucose 84 mg/dL (83-110); HDL Cholesterol 63 mg/dL (>60 Neg Risk); LDL Cholesterol, Calculated 92 mg/dL; Triglycerides 52 mg/dL (Less than 150)
[2021-06-03 08:19] LABS: #Eosinphils 0.2 thou/uL (0.0-0.7); #Lymphocytes 1.1 thou/uL (1.20-3.40); #Monocytes 0.3 thou/uL (0.11-0.59); #Neutrophils 7.1 thou/uL (1.40-6.50); %Basophils 0.1 % (0.0-1.0); %Eosinophils 1.8 % (0.0-10.0); %Lymphocytes 12.2 % (21.0-51.0); Hemoglobin 14.6 g/dL (12.0-16.0); Mean Corpuscular HGB CONC 33.4 g/dL (32.0-36.0); Mean Corpuscular Hemoglobin 28.3 pg (27.0-31.0); Mean Corpuscular Volume 84.7 fL (78.0-98.0); Mean Platelet Volume 7.6 fL (7.4-10.4); Platelet Count 206 thou/uL (130-400); Red Blood Cell (RBC) Count 5.14 mill/uL (4.20-5.40); White Blood Cell (WBC) Count 8.6 thou/uL (4.8-10.8)
[2021-06-03] MEDS: cefTRIAXone\\ROCEPHIN 1 GM in Sodium Chloride 0.9% 100 ML IVPB SCH (08:30)
[2021-06-03] MEDS: Aspirin 81 mg Enteric Coated Tablet PO SCH (08:32)
[2021-06-03 08:41] LABS: ALT (SGPT) 8 U/L (8-55); AST (SGOT) 15 U/L (5-34); Albumin 3.8 g/dL (3.4-4.8); Alkaline Phosphatase 73 U/L (40-110); Anion Gap 15 mmol/L (10-20); BUN (Urea Nitrogen) 17 mg/dL (9.8-20.1); Bilirubin, Total 0.4 mg/dL (0.2-1.2); CK (CPK) 35 U/L (29-168); Calc. Creatinine Clearance 75 mL/min (70-130); Calcium 9.8 mg/dL (7.8-10.44); Carbon Dioxide 23 mmol/L (23-31); Chloride 108 mmol/L (98-107); Globulin 3.5 g/dL (2.4-3.5); Glucose 118 mg/dL (83-110); Potassium 3.5 mmol/L (3.5-5.1); Protein, Total 7.3 g/dL (5.8-8.1); Sodium 142 mmol/L (136-145)
[2021-06-03 08:47] LABS: INR-International Normal Ratio 1.1; Prothrombin Time 14.1 sec (12.0-14.7)
[2021-06-03 08:48] LABS: PTT 29.4 sec (22.9-36.1)
[2021-06-03 14:37] VITALS: BMI 33.0
[2021-06-03] MEDS: Atorvastatin Calcium 40 MG TAB PO SCH (20:39)
[2021-06-03] MEDS: Lisinopril 10 MG TAB PO SCH (20:39)
[2021-06-04] MEDS: cefTRIAXone\\ROCEPHIN 1 GM in Sodium Chloride 0.9% 100 ML IVPB SCH (08:10)
[2021-06-04] MEDS: Aspirin 81 mg Enteric Coated Tablet PO SCH (08:16)
[2021-06-04] MEDS: Multivitamin W/ Minerals 1 TAB PO SCH (08:16)
[2021-06-04 09:56] LABS: Hemoglobin 14.9 g/dL (12.0-16.0); Mean Corpuscular Hemoglobin 27.5 pg (27.0-31.0); Mean Corpuscular Volume 86.1 fL (78.0-98.0); Mean Platelet Volume 7.8 fL (7.4-10.4); Platelet Count 217 thou/uL (130-400); RBC Distribution Width 13.1 % (11.5-14.5); Red Blood Cell (RBC) Count 5.41 mill/uL (4.20-5.40); White Blood Cell (WBC) Count 7.9 thou/uL (4.8-10.8)
[2021-06-04 10:17] LABS: Anion Gap 11 mmol/L (10-20); BUN (Urea Nitrogen) 15 mg/dL (9.8-20.1); Calc. Creatinine Clearance 77 mL/min (70-130); Calcium 9.7 mg/dL (7.8-10.44); Carbon Dioxide 25 mmol/L (23-31); Chloride 108 mmol/L (98-107); Glucose 114 mg/dL (83-110); Potassium 3.4 mmol/L (3.5-5.1); Sodium 141 mmol/L (136-145)
[2021-06-04 11:10] LABS: Eosinophils 2 % (0-10); Lymphocytes 16 % (21-51); Monocytes 8 % (0-10); Neutrophil 74 % (42-75); Platelet Morphology Comment Appears Adequate; Polychromasia SLIGHT = 2-3 cells (100X) (0-2/hpf)
[2021-06-04 11:11] LABS: MDiff Complete? YES
[2021-06-04] MEDS: Atorvastatin Calcium 40 MG TAB PO SCH (20:30)
[2021-06-04] MEDS: Lisinopril 10 MG TAB PO SCH (20:30)
[2021-06-05 06:06] LABS: Anion Gap 13 mmol/L (10-20); BUN (Urea Nitrogen) 19 mg/dL (9.8-20.1); Calc. Creatinine Clearance 81 mL/min (70-130); Carbon Dioxide 22 mmol/L (23-31); Chloride 107 mmol/L (98-107); Glucose 86 mg/dL (83-110); Potassium 3.6 mmol/L (3.5-5.1); Sodium 138 mmol/L (136-145)
[2021-06-05] MEDS: Aspirin 81 mg Enteric Coated Tablet PO SCH (08:26)
[2021-06-05] MEDS: Multivitamin W/ Minerals 1 TAB PO SCH (08:27)
[2021-06-05] MEDS: cefTRIAXone\\ROCEPHIN 1 GM in Sodium Chloride 0.9% 100 ML IVPB SCH (08:27)
[2021-06-05] MEDS ORDERED: FLU VACC QS2021-22(65YR UP)/PF 240 MCG/0.7 ML SYRINGE IM ONE (09:00)
[2021-06-05] MEDS: Lisinopril 10 MG TAB PO SCH (20:02)
[2021-06-05] MEDS: Atorvastatin Calcium 40 MG TAB PO SCH (20:02)
[2021-06-06] MEDS: cefTRIAXone\\ROCEPHIN 1 GM in Sodium Chloride 0.9% 100 ML IVPB SCH (09:03)
[2021-06-06] MEDS: Multivitamin W/ Minerals 1 TAB PO SCH (09:04)
[2021-06-06] MEDS: Aspirin 81 mg Enteric Coated Tablet PO SCH (09:04)
[2021-06-06] MEDS ORDERED: Ibuprofen 600 MG TAB PO PRN (10:40)
[2021-06-06] MEDS ORDERED: Lidocaine 5% Patch TD SCH (12:15)
[2021-06-06 15:33] VITALS: BP 136/77; TEMP 98.1
[2021-06-06] MEDS ORDERED: Transdermal Patch Removal TOP SCH (23:59)
[2021-06-07] MEDS ORDERED: Lidocaine 5% Patch TD SCH (12:00)
== END 2021-06-06 17:10 | DRG 689 ==
LOC: ERS 10:57 → ERHOLD 15:09 → 3SE 19:13 → OBSVTOIN 06-03 17:11
PROVIDERS: ADMIT Internal Medicine; ATTEND Internal Medicine
DX: N39.0 Urinary tract infection, site not specified (principal); G92.9 Unspecified toxic encephalopathy; I69.354 Hemiplegia and hemiparesis following cerebral infarction affecting left non-dominant side; Z66 Do not resuscitate; Z20.822 Contact with and (suspected) exposure to COVID-19; E66.9 Obesity, unspecified; F41.9 Anxiety disorder, unspecified; M54.12 Radiculopathy, cervical region; F03.90 Unspecified dementia, unspecified severity, without behavioral disturbance, psychotic disturbance, mood disturbance, and anxiety; I10 Essential (primary) hypertension; E78.5 Hyperlipidemia, unspecified; F32.9 Major depressive disorder, single episode, unspecified; M19.90 Unspecified osteoarthritis, unspecified site; N32.81 Overactive bladder; Z96.659 Presence of unspecified artificial knee joint; Z68.33 Body mass index [BMI] 33.0-33.9, adult; Z95.0 Presence of cardiac pacemaker; Z88.5 Allergy status to narcotic agent; Z79.82 Long term (current) use of aspirin; Z79.1 Long term (current) use of non-steroidal anti-inflammatories (NSAID); Z79.899 Other long term (current) drug therapy; Z90.710 Acquired absence of both cervix and uterus; Z90.722 Acquired absence of ovaries, bilateral
CPT/HCPCS: 36415; 36416; 51701; 70450; 70496; 70498; 70551; 71045; 80048; 80053; 80061; 80306; 80307; 81003; 81015; 82550; 82607; 82746; 83735; 84443; 84484; 85025; 85610; 85730; 87086; 93005; 93010; 93306; 95712; 95819; 95957; J0696; J3490; Q9967; U0003; U0005